=== PATIENT | female | born 1945 | race Caucasian/White ===

== ENCOUNTER 2019-12-28 10:05 | Outpatient (CLI) | payer MEDICARE, BC, SELFPAY ==
--- NOTE | ~2019-12-28 | DEXA_ITS ---
Bone Density Report Name: Lennie Shaw Age: 74 Sex: Female Ethnicity: White Date of : 1945 Indication: postmenopausal; height loss; prior fracture; hysterectomy; Referring Provider: JAMES DURON Study: Bone densitometry was performed. Exam Date: December 28, 2019 Accession number: [id number] Bone Density: Region BMD T-score Z-score Classification AP Spine (L1-L4) 1.033 -0.1 2.3 Normal Femoral Neck (Left) 0.678 -1.5 0.6 Osteopenia Total Hip (Left) 0.887 -0.5 1.4 Normal Total Hip Bilateral Avg 0.939 0.0 1.8 Normal Femoral Neck (Right) 0.752 -0.9 1.2 Normal Total Hip (Right) 0.989 0.4 2.2 Normal World Health Organization criteria for BMD impression classify patients as: Normal (T-score at or above -1.0), Osteopenia (T-score between -1.0 and -2.5), or Osteoporosis (T-score at or below -2.5). 10-year Fracture Risk(1): Major Osteoporotic Fracture 15% Hip Fracture 2.6% Reported Risk Factors: [place] (), Neck BMD=0.678, BMI=42.5, previous fracture (1) FRAX(R) Version 3.08. Fracture probability calculated for an untreated patient. Fracture probability may be lower if the patient has received treatment. Previous Exams: Region Exam Age BMD T-score BMD Change BMD Change Date g/cm2 vs Baseline vs Previous AP Spine(L1-L4) 12/28/2019 74 1.033 -0.1 0.024(2.4%)# -0.027(-2.5%)* 03/10/2017 71 1.060 0.1 0.051(5.0%)# 0.027(2.6%)# 08/04/2013 68 1.033 -0.1 0.024(2.4%)# 0.024(2.4%)# 03/23/2010 64 1.009 -0.3 Total Hip(Left) 12/28/2019 74 0.887 -0.5 -0.019(-2.1%)# -0.007(-0.8%) 03/10/2017 71 0.894 -0.4 -0.012(-1.4%)# -0.009(-1.0%)# 08/04/2013 68 0.903 -0.3 -0.003(-0.4%)# -0.003(-0.4%)# 03/23/2010 64 0.906 -0.3 Total Hip(Right) 12/28/2019 74 0.989 0.4 0.074(8.1%)# 0.011(1.1%) 03/10/2017 71 0.978 0.3 0.063(6.9%)# -0.069(-6.6%)# 08/04/2013 68 1.047 0.9 0.131(14.4%)# 0.131(14.4%)# 03/23/2010 64 0.915 -0.2 *Denotes significance at 95% confidence level, LSC for AP Spine = 0.022 g/cm2, LSC for Total Hip = 0.027 g/cm2 Clinical Information Provided by Patient: Has had a low trauma fracture Has used the following medications: Vitamin D Has the following medical conditions: Hysterectomy Patient maximum height was 59.5 Menopause Age: 44 Drinks caffeinated beverages Onset of menses at age 12 Number of children 2 Impression: The patient has low say
== END 2019-12-28 10:06 | disposition home or self-care (01) ==
LOC: ANHIMG 10:12
PROVIDERS: PCP Emergency Medicine; Visit Provider Emergency Medicine
DX: Z78.0 Asymptomatic menopausal state (principal); M85.852 Other specified disorders of bone density and structure, left thigh
CPT/HCPCS: 77080

== ENCOUNTER → 2020-07-14 11:14 | Outpatient (CLI) | payer MEDICARE, BC, SELFPAY ==
--- NOTE | ~2020-07-14 | MM_ITS ---
EXAMINATION: MM screening [facility] BI w brianna HISTORY: Screening TECHNIQUE: Craniocaudal and mediolateral oblique 3-D tomosynthesis images were obtained and synthetic 2-D images were generated. CAD analysis was submitted and interpreted. COMPARISON: Comparison to multiple prior studies sequentially, with oldest reviewed study dated 05/21. BREAST PARENCHYMAL COMPOSITION: There are scattered areas of fibroglandular density. FINDINGS: There is no evidence of suspicious mass, calcification, or architectural distortion to sugg est malignancy in either breast. There has been no suspicious interval change. IMPRESSION: 1. No mammographic evidence of malignancy. 2. Recommend routine screening mammography in one year. BI-RADS Category 1: Negative Reviewed, dictated and finalized at location A.
== END ==
PROVIDERS: PCP Emergency Medicine; Visit Provider Emergency Medicine
DX: Z12.31 Encounter for screening mammogram for malignant neoplasm of breast (principal)
CPT/HCPCS: 77063; 77067

== ENCOUNTER → 2021-08-06 17:47 | Outpatient (CLI) | payer MEDICARE, BC, SELFPAY ==
--- NOTE | ~2021-08-06 | MM_ITS ---
EXAMINATION: MM screening [facility] BI w brianna HISTORY: Screening mammogram TECHNIQUE: Craniocaudal and mediolateral oblique 3-D tomosynthesis images were obtained and synthetic 2-D images were generated. CAD analysis was submitted and interpreted. COMPARISON: 07/14/2020, 04/17/2019, 02/13/2018 BREAST PARENCHYMAL COMPOSITION: The breasts are almost entirely fatty. FINDINGS: There is no evidence of suspicious mass, calcification, or architectural distortion to sugg est malignancy in either breast. There has been no suspicious interval change. IMPRESSION: 1. No mammographic evidence of malignancy. 2. Recommend routine screening mammography in one year. BI-RADS Category 1: Negative Reviewed, dictated and finalized at location A.
== END ==
PROVIDERS: PCP Emergency Medicine; Visit Provider Emergency Medicine
DX: Z12.31 Encounter for screening mammogram for malignant neoplasm of breast (principal)
CPT/HCPCS: 77063; 77067

== ENCOUNTER 2021-10-05 08:34 | Outpatient (CLI) | payer MEDICARE, BC, SELFPAY ==
--- NOTE | ~2021-10-05 | CT_ITS ---
EXAMINATION: CT abdomen pelvis w con DATE: 10/05/2021 09:11 INDICATION: Unspecified abdominal pain. TECHNIQUE: Computed tomography (CT) of the abdomen and pelvis was performed with 100 mL Omnipaque 350 intravenous contrast. Automated exposure control and iterative reconstruction technique were employe d. The dose-length product was 1328.58 mGy-cm. COMPARISON: None. FINDINGS: The visualized portions of the lung bases demonstrate peripheral septal thickening, consist ent with chronic interstitial lung disease. There is a 5 mm nodule in right lower lobe, likely benign . No pleural effusion. The heart size is normal. There are coronary artery calcifications. No pericar dial effusion. There is a small sliding hiatal hernia. The liver and spleen are normal. There are paul nges of cholecystectomy. The pancreas, adrenal glands, and kidneys are normal. There are scattered di verticula in the colon. There is an 8.1 x 7.1 x 3.2 cm perisigmoid abscess. There are no pathological ly enlarged lymph nodes. There is no free intraperitoneal fluid. There is severe thoracic spondylosis and moderate lumbar spondylosis. IMPRESSION: 1. 8.1 x 7.1 x 3.2 cm perisigmoid abscess, likely from diverticulitis. Percutaneous drainage is recom mended. Reviewed, dictated and finalized at location A. LESNAKE FARMER IMPRESSION: 1. 8.1 x 7.1 x 3.2 cm perisigmoid abscess, likely from diverticulitis. Percutan eous drainage is recommended.
== END 2021-10-05 08:35 | disposition home or self-care (01) ==
LOC: ANHIMG 08:40
PROVIDERS: PCP Emergency Medicine; Visit Provider Emergency Medicine
DX: R10.9 Unspecified abdominal pain (principal)
CPT/HCPCS: 74177; Q9967

== ENCOUNTER 2021-10-25 10:01 | Outpatient (CLI) | payer MEDICARE, BC, SELFPAY ==
[2021-10-18 10:59] VITALS: BMI 45.2
--- NOTE | 2021-10-18 11:16 | PC.NURSE ---
Report to the Outpatient Waiting Room, entrance under the green pavilion located off [facility], at time ___0900__ on date __10/25/21 . OR Time: ___1099___. - You and your visitor will be asked a series of questions to screen for COVID 19 for your protection. - A mask is required within the hospital. - Only one visitor is allowed at this time. Patient visitors will be guided where to wait when not with patient. Preoperative COVID Testing Requirements: No COVID Test needed if: (proof is required; if not received patient will have Rapid Test prior to entry) - Patient has received COVID Vaccine at least 14 days prior to procedure date or - Patient has positive COVID test result within last 90 days of surgery date. COVID Test needed if above criteria is not met If not COVID vaccinated a COVID test must be conducted within 72 hours of surgery and patient is asked to isolate self from time of testing until procedure. You will go to the [facility] Testing Site for your COVID testing. The [facility] site is located at the corner of [address] [facility]. You will only be called if COVID results are positive and your surgeon may reschedule your elective surgery date. Patients may have clear liquids (water, carbonated beverages, clear teas, apple juice) until 3 hours prior to surgery with a maximum of 20 ounces. - No food from midnight until time of surgery - Infants may have breast milk until 4 hours before surgery, infant formula 6 hours prior to surgery. - Children will be allowed to drink immediately following surgery. If applicable, please bring a bottle or sippy cup to assist with drinking. Juice, water, soda, and popsicles are readily available. For infants on formula, please bring formula the day of surgery. Pacifiers are allowed. Take the following medications with a SIP of water the morning of surgery: NONE Medications to discontinue per physician Date to take last dose Please no make-up, nail luxembourgish, hairspray, perfume, deodorant, or body powder the day of surgery. No jewelry (including any body piercings) or valuables the day of surgery, leave them at home. Please take a shower or bath the night before, or the morning of, surgery with an antibacterial soap. Wear comfortable, loose fitting clothing. Children are encouraged to wear pajamas. - Jewelry must be removed prior to entering the operating room. Rings and piercings that are not removed may be cut off. - The hospital will not accept responsibility for valuables. - Please leave all valuables, including medications, at home the day of surgery. If you are going home after surgery, a licensed trencher driver must drive you home. - NO public transportation without another adult. - We recommend that an adult stay with you for 24 hours following discharge. - We also recommend that you do not drive, make important decision, drink alcoholic beverages, or take any drugs that were not prescribed by your health care provider for at least 24 hours after your discharge time. For Pediatric surgeries, we recommend two adults accompany the child home (only one inside the building at this time). Follow any additional instructions given to you from your surgeon. Telephone instructions given to PT and asked if any additional questions and then verbalized understanding. Patient advised to call surgeon office or pre surgery nurse liaison [phone] if any additional questions.
--- NOTE | ~2021-10-25 | CT_ITS ---
EXAMINATION: CT pelvis wo con DATE: 10/25/2021 11:56 INDICATION: Perisigmoid abscess. TECHNIQUE: Computed tomography (CT) of the pelvis was performed without intravenous contrast. Automat ed exposure control and iterative reconstruction technique were employed. The dose-length product was 100.07 mGy-cm. COMPARISON: CT abdomen and pelvis 10/05/2021 FINDINGS: There are no dilated loops of bowel. There are scattered diverticula in the colon. There is a 4.0 x 3.1 cm perisigmoid mass, consistent with abscess. The drainable fluid component of the absce ss likely less than 2 cm. There are no pathologically enlarged lymph nodes. There is no free intraper itoneal fluid. There is moderate lumbar spondylosis. IMPRESSION: 1. Perisigmoid abscess with interval improvement. The drainable fluid component of the abscess is lik amor less than 2 cm. I discussed this result with Dr. Cross. The abscess drainage procedure was cancel ed. Reviewed, dictated and finalized at location A. COILER MACHINE OPERATOR IMPRESSION: 1. Perisigmoid abscess with interval improvement. The drainable fluid component of the abscess is likely less than 2 cm. I discussed this result with Dr. Matt sepulveda. The abscess drainage procedure was canceled.
[2021-10-25 09:23] VITALS: BP 121/77; PULSE 95; RESP 18; TEMP 36.2; O2SAT 95
[2021-10-25 09:43] LABS: Mean Platelet Volume 8.8 fl (7.4-10.4); Platelet Count Result 297 k/mm3 (150-375)
[2021-10-25 09:54] LABS: Prothrombin Time 13.4 Seconds (11.1-14.7)
[2021-10-25 11:05] VITALS: BP 175/95; PULSE 98; RESP 16
== END 2021-10-25 11:30 | disposition home or self-care (01) ==
PROVIDERS: Radiology Diagnostic Radiology; PCP Emergency Medicine; Visit Provider Surgery
PROC: (CPT 75989; principal; 2021-10-25 11:00)
DX: R19.00 Intra-abdominal and pelvic swelling, mass and lump, unspecified site (principal)
CPT/HCPCS: 36415; 72192; 85049; 85610; J0690

== ENCOUNTER 2021-11-14 13:09 | Outpatient (CLI) | payer MEDICARE, BC, SELFPAY ==
--- NOTE | ~2021-11-14 | US_ITS ---
EXAMINATION: US venous doppler [facility] EXAM DATE: 11/14/2021 14:02 INDICATION: M79.604 - Pain in right leg . TECHNIQUE: Multiple grayscale, color flow and Doppler images of the lower extremity deep venous syste ms bilaterally were obtained and reviewed. Comparison is made to prior examination from 08/09/2016. FINDINGS: Right side: The right common femoral, femoral and profunda veins demonstrate normal color flow, respi ratory variation, augmentation and compressibility. Compressibility, color flow confirmed within the right popliteal, posterior tibial, peroneal, and greater saphenous veins. Left side: The left common femoral, femoral and profunda veins demonstrate normal color flow, respira tory variation, augmentation and compressibility. Compressibility, color flow confirmed within the l eft popliteal, posterior tibial, peroneal, and greater saphenous veins. IMPRESSION: 1. No lower extremity deep venous thrombosis bilaterally. Reviewed, dictated and finalized at location A. R INSPECTOR
== END 2021-11-14 13:10 | disposition home or self-care (01) ==
LOC: ANHIMG 13:14
PROVIDERS: PCP Emergency Medicine; Visit Provider Emergency Medicine
DX: M79.604 Pain in right leg (principal); M79.605 Pain in left leg
CPT/HCPCS: 93970

== ENCOUNTER 2022-01-21 12:24 | Outpatient (CLI) | payer MEDICARE, BC, SELFPAY ==
--- NOTE | 2022-01-21 12:46 | ECHO_ITS ---
Patient Info Name: Lennie Shaw Age: 76 years : 1945 Gender: Female Ht: 58 in Wt: 209 lbs BSA: 2.03 m2 HR: 71 bpm BP: 144 / 97 mmHg Heart Rhythm: Sinus Rhythm Technical Quality: Good Exam Date: 01/21/2022 1:04 PM Exam Location: [facility] Patient Status: Outpatient Admit Date: 01/21/2022 Staff Ordering Physician: Real Doherty DO Drilling Fluids Specialist: Kathie Wallace RDCS Attending Provider: Real Doherty DO Referring Physician: Chas UNDERWOOD; Exam Type: CA echo doppler color flow Study Info Indications - Unspecified atrial fibrillation Complete two-dimensional, color flow and Doppler transthoracic echocardiogram is performed. Summary 1. Complete two-dimensional, color flow and Doppler transthoracic echocardiogram is performed. 2. Left ventricular chamber dimension is normal. 3. Left ventricular systolic function is normal, estimated at 60-65%. 4. The left ventricular diastolic function is grade I diastolic dysfunction. 5. E/e' 14 is mildly elevated. 6. Global longitudinal strain is mildly abnormal at -16.3%. 7. No pulmonary hypertension, estimated pulmonary arterial systolic pressure is 18 mmHg. Left Ventricle E/e' 14 is mildly elevated. Global longitudinal strain is mildly abnormal at -16.3%. Left ventricular chamber dimension is normal. Left ventricular systolic function is normal, estimated at 60-65%. The left ventricular diastolic function is grade I diastolic dysfunction. Right Ventricle Right ventricular chamber dimension is normal. Right ventricular systolic function is normal. Left Atria Left atrial chamber dimension is normal. Right Atria Right atrial chamber dimension is normal. Aortic Valve The aortic valve is trileaflet. There is no aortic valve stenosis. There is no aortic valve regurgitation. Pulmonic Valve There is no pulmonic regurgitation. Mitral Valve There is no mitral valve stenosis. There is no mitral valve regurgitation. Tricuspid Valve There is no tricuspid valve regurgitation. No pulmonary hypertension, estimated pulmonary arterial systolic pressure is 18 mmHg. Pericardium/Pleural There is no pericardial effusion. Inferior Vena Cava Normal inferior vena cava with >50% collapse upon inspiration consistent with normal right atrial pressure, 5 mmHg. Aorta The aortic root size at the sinus of Valsalva is normal. Left Ventricular Outflow Tract Name Value Normal LVOT 2D LVOT Diameter 2.0 cm LVOT Doppler LVOT Peak Gradient 4 mmHg LVOT Mean Gradient 2 mmHg LVOT VTI 22 cm LVOT VTI/AV VTI Ratio 0.8 LVOT Stroke Volume 69 ml LVOT CO 13.5 l/min LVOT CI 6.7 l/min/m2 Pulmonic Valve Name Value Normal PV Doppler
== END 2022-01-21 12:25 | disposition home or self-care (01) ==
LOC: ANHCARD 12:29
PROVIDERS: PCP Emergency Medicine; Visit Provider Internal Medicine Cardiovascular Disease
DX: I48.91 Unspecified atrial fibrillation (principal)
CPT/HCPCS: 93306

== ENCOUNTER 2022-09-19 14:14 | Outpatient (CLI) | payer MEDICARE, BC, SELFPAY ==
--- NOTE | ~2022-09-19 | DEXA_ITS ---
Bone Density Report Name: REBECA NICOLAS Age: 77 Sex: Female Ethnicity: White Date of : 1945 Indication: postmenopausal; screening for osteoporosis; height loss; inflammatory bowel disease; hysterectomy; Referring Provider: JAMES DURON Study: Bone densitometry was performed. Exam Date: September 19, 2022 Accession number: [id number] Bone Density: Region BMD T-score Z-score Classification AP Spine(L1-L4) 0.965 -0.7 1.8 Normal Femoral Neck (Left) 0.654 -1.8 0.5 Osteopenia Total Hip (Left) 0.810 -1.1 0.9 Osteopenia Femoral Neck (Right) 0.756 -0.8 1.4 Normal Total Hip (Right) 0.959 0.1 2.1 Normal Total Hip Mean 0.884 -0.5 1.5 Normal World Health Organization criteria for BMD impression classify patients as: Normal (T-score at or above -1.0), Osteopenia (T-score between -1.0 and -2.5), or Osteoporosis (T-score at or below -2.5). 10-year Fracture Risk(1): Major Osteoporotic Fracture 11% Hip Fracture 2.6% Reported Risk Factors: [place] (), Neck BMD=0.654, BMI=44.9 (1) FRAX(R) Version 3.08. Fracture probability calculated for an untreated patient. Fracture probability may be lower if the patient has received treatment. Clinical Information Provided by Patient: Has used the following medications: Vitamin D Has the following medical conditions: Inflammatory bowel diseases, Hysterectomy Patient maximum height was 59 No regular weight bearing exercise Drinks caffeinated beverages Onset of menses at age 11 Number of children 2 Impression: The patient has low bone mass, based on the Left Femoral Neck T-score. The patient has an estimated ten-year risk of hip fracture of 2.6% and an estimated ten-year risk of major fracture of 11%, based on the WHO FRAX algorithm. Discussion: BONE DENSITY IS LOW AT ONE OR MORE SKELETAL SITES. This patient's lowest T-score is low at one or more skeletal sites. It meets the World Health Organization's (WHO) criteria for ?low bone mass? (T-score between -1.0 and -2.5). The patient's 10-year risk of fracture as calculated by FRAX is less than the threshold where pharmacological therapy is recommended by the National Osteoporosis Foundation (NOF). However, all treatment decisions require clinical judgment and consideration of individual patient factors, including patient preferences, comorbidities, previous drug use, risk factors not captured in the FRAX model (e.g., frailty, falls, vitamin D deficiency, increased bone turnover, interval significant decline in bone density) and possible under or overestimation of fracture risk by FRAX. The patient should follow a healthful lifestyle (good nutrition with adequate calcium and vitamin D, and appropriate weight-bearing exercise). Follow-Up: Consider repeating this study in 2 to 3 years to re
== END 2022-09-19 14:15 | disposition home or self-care (01) ==
LOC: ANHIMG 14:15
PROVIDERS: PCP Emergency Medicine; Visit Provider Emergency Medicine
DX: Z78.0 Asymptomatic menopausal state (principal); M85.852 Other specified disorders of bone density and structure, left thigh
CPT/HCPCS: 77080

== ENCOUNTER 2022-11-22 00:32 | Day surgery (SDC) | payer MEDICARE, BC, SELFPAY ==
[2022-11-11 15:05] VITALS: BMI 46.0
[2022-11-22 09:25] VITALS: BP 109/68; PULSE 77; RESP 18; TEMP 36.1; O2SAT 96
--- NOTE | 2022-11-22 09:27 | PM.HPGS ---
History of Present Illness History of Present Illness Consent: Risks, benefits, and alternatives have been discussed and questions answered. Patient agrees to proceed with procedure. Chief complaint: Hx of colon polyps Narrative: Lennie Shaw is a 77 year old female referred for colon cancer screening. She had 1 small polyp removed about 5 years ago Review of Systems Review of Systems: All systems reviewed & are unremarkable except as noted in HPI and below PMFSH Past Medical History Medical History Anxiety DJD (degenerative joint disease) HTN (hypertension) Urinary incontinence Surgical History Surgical History H/O adenoidectomy H/O section 1974 H/O knee surgery H/O rotator cuff surgery H/O: hysterectomy History of tonsillectomy Family History Family History Father Family history of lung cancer, Onset Age: 69 Patient's father is Mother Patient's mother is Non-Hodgkin lymphoma Grandparent Family history of malignant neoplasm of male breast Social History Social History Social History: Patient drinks 2 cups of coffee daily, 1 diet coke, and iced tea. Patient walks at [employer] three times per week. Smoking status: Never smoker Second hand tobacco smoke exposure: No Alcohol intake: current Alcohol use details: STATES VERY RARELY 1-2 TIMES YEAR Substance use: never Substance use type: does not use Living arrangements: alone Additional living arrangements comments: Patient is Occupation/Education: retired Gender identity (if verbalized by the patient): Female Sexual Orientation (if Verbalized by the Patient): Straight or Heterosexual Spiritual care concerns: No Meds Home Medications and Allergies Home Medications Medication Instructions Recorded Confirmed Type venlafaxine 75 mg tablet 75 mg PO BID 10/09/21 11/11/22 History ergocalciferol (vitamin D2) 1,250 1,250 mcg PO WEEKLY #12 caps 02/22/22 11/11/22 Rx mcg (50,000 unit) capsule (Vitamin D2) fluticasone propionate 50 1 spray intranasal DAILY #16 grams 04/29/22 11/11/22 Rx mcg/actuation nasal spray,suspension metoprolol tartrate 25 mg tablet 25 mg PO BID #60 tabs 06/21/22 11/11/22 Rx sertraline 100 mg tablet (Zoloft) 150 mg PO DAILY 08/28/22 11/11/22 History apixaban 5 mg tablet (Eliquis) 5 mg PO BID 11/11/22 11/22/22 History benazepril 10 1 tablet PO BID 11/11/22 11/11/22 History mg-hydrochlorothiazide 12.5 mg tablet cetirizine 10 mg tablet (Zyrtec) 10 mg PO DAILY PRN Allergy Symptoms 11/11/22 11/11/22 History fexofenadine 180 mg tablet 180 mg PO PRN PRN Allergy Symptoms 11/11/22 11/11/22 History (Neelima Allergy) lifitegrast 5 % eye drops in a 1 drp EACH EYE DAILY 11/11/22 11/11/22 History dropperette (Xiidra) nystatin 100,000 unit/gram topical 1 applic topical PRN PRN Rash 11/11/22 11/11/22 History powder (Nystop) trazodone 50 mg tablet 50 - 75 mg PO HS PRN Insomnia 11/11/22 11/11/22 History triamcinolone acetonide 0.1 % 1 applic topical BID PRN Wound Care 11/11/22 11/11/22 History topical cream Allergies Allergy/AdvReac Type Severity Reaction Status Date / Time red dye Allergy Severe Anaphylaxis Verified 11/22/22 09:23 ragweed pollen AdvReac Mild Congested Verified 11/22/22 09:23 Vital Signs Vital Signs - 24 hr 11/22/22 09:25 Temperature 36.1 C L Pulse Rate 77 Respiratory Rate 18 Blood Pressure 109/68 Pulse Oximetry 96 Oxygen Delivery Room Air Exam Const: General: alert Orientation/consciousness: patient oriented x3 Resp: Auscultation: clear to auscultation bilaterally Cardio: Rhythm: regular rhythm GI: GI Palp: Yes Soft to palpation and No Tenderness to palpation pres
[2022-11-22] MEDS: LACTATED RINGERS 1,000 ML 150 ML IV CONT (09:35)
--- NOTE | 2022-11-22 09:55 | WPDANESEPPF ---
Anes - Initial Pre Proc Eval Procedure: Operation Date: 11/22/22 10:30 Proposed Procedures p Screening Colonoscopy - Wilian Herman MD Date/Time: 11/22/22 09:55 Surgeon: Wilian Herman MD Pre Op Diagnosis: Hx of colon polyps Patient Data Age: 77 Gender: F Height: 1.45 m Weight: 94.1 kg Last Vital Signs Temp 97 F L 11/22/22 09:25 Pulse 77 11/22/22 09:25 Resp 18 11/22/22 09:25 BP 109/68 11/22/22 09:25 Pulse Ox 96 11/22/22 09:25 O2 Del Method Room Air 11/22/22 09:25 Allergies Allergy/AdvReac Type Severity Reaction Status Date / Time red dye Allergy Severe Anaphylaxis Verified 11/22/22 09:23 ragweed pollen AdvReac Mild Congested Verified 11/22/22 09:23 Home Medications Medication Instructions Recorded Confirmed Type venlafaxine 75 mg tablet 75 mg PO BID 10/09/21 11/11/22 History ergocalciferol (vitamin D2) 1,250 1,250 mcg PO WEEKLY #12 caps 02/22/22 11/11/22 Rx mcg (50,000 unit) capsule (Vitamin D2) fluticasone propionate 50 1 spray intranasal DAILY #16 grams 04/29/22 11/11/22 Rx mcg/actuation nasal spray,suspension metoprolol tartrate 25 mg tablet 25 mg PO BID #60 tabs 06/21/22 11/11/22 Rx sertraline 100 mg tablet (Zoloft) 150 mg PO DAILY 08/28/22 11/11/22 History apixaban 5 mg tablet (Eliquis) 5 mg PO BID 11/11/22 11/22/22 History benazepril 10 1 tablet PO BID 11/11/22 11/11/22 History mg-hydrochlorothiazide 12.5 mg tablet cetirizine 10 mg tablet (Zyrtec) 10 mg PO DAILY PRN Allergy Symptoms 11/11/22 11/11/22 History fexofenadine 180 mg tablet 180 mg PO PRN PRN Allergy Symptoms 11/11/22 11/11/22 History (Neelima Allergy) lifitegrast 5 % eye drops in a 1 drp EACH EYE DAILY 11/11/22 11/11/22 History dropperette (Xiidra) nystatin 100,000 unit/gram topical 1 applic topical PRN PRN Rash 11/11/22 11/11/22 History powder (Nystop) trazodone 50 mg tablet 50 - 75 mg PO HS PRN Insomnia 11/11/22 11/11/22 History triamcinolone acetonide 0.1 % 1 applic topical BID PRN Wound Care 11/11/22 11/11/22 History topical cream Patient hx anesthesia problems: none Family hx anesthesia problems: none Results Review: All pre-operative results and documents have been reviewed as part of the pre-operative evaluation. [facility] Past Medical History Medical History Anxiety DJD (degenerative joint disease) HTN (hypertension) Urinary incontinence Surgical History Surgical History H/O adenoidectomy H/O section 1969, 1974 H/O knee surgery H/O rotator cuff surgery H/O: hysterectomy History of tonsillectomy Family History Family History Father Family history of lung cancer, Onset Age: 69 Patient's father is Mother Patient's mother is Non-Hodgkin lymphoma Grandparent Family history of malignant neoplasm of male breast Social History Social History Social History: Patient drinks 2 cups of coffee daily, 1 diet coke, and iced tea. Patient walks at [employer] three times per week. Smoking status: Never smoker Second hand tobacco smoke exposure: No Alcohol intake: current Alcohol use details: STATES VERY RARELY 1-2 TIMES YEAR Substance use: never Substance use type: does not use Living arrangements: alone Additional living arrangements comments: Patient is Occupation/Education: retired Gender identity (if verbalized by the patient): Female Sexual Orientation (if Verbalized by the Patient): Straight or Heterosexual Spiritual care concerns: No Anes - Eval Final PreProcedure Day of Procedure 11/22/22 09:55 Patient weight: morbidly obese Heart: regular rate and rhythm Lungs: clear to auscultation Airway: Mallampati scale class III Neurological: alert
[2022-11-22 10:23] VITALS: BP 101/55; PULSE 66; RESP 24; O2SAT 93
[2022-11-22 10:33] VITALS: BP 96/54; PULSE 67; RESP 21; O2SAT 95
[2022-11-22 10:43] VITALS: BP 101/62; PULSE 67; RESP 21; O2SAT 98
== END 2022-11-22 10:56 | disposition home or self-care (01) ==
PROVIDERS: PCP Emergency Medicine; Visit Provider Internal Medicine Gastroenterology
PROC: 0DJD8ZZ Inspection of Lower Intestinal Tract, Via Natural or Artificial Opening Endoscopic (ICD-10-PCS; CPT 45378; principal; 2022-11-22 10:30)
DX: Z12.11 Encounter for screening for malignant neoplasm of colon (principal); K57.30 Diverticulosis of large intestine without perforation or abscess without bleeding; Z86.010 Personal history of colon polyps; I10 Essential (primary) hypertension; F41.9 Anxiety disorder, unspecified; E66.01 Morbid (severe) obesity due to excess calories; Z68.41 Body mass index [BMI] 40.0-44.9, adult; Z79.01 Long term (current) use of anticoagulants
CPT/HCPCS: G0105; J2704; J7120

== ENCOUNTER 2023-01-01 14:36 | Outpatient (CLI) | payer MEDICARE, BC, SELFPAY ==
--- NOTE | ~2023-01-01 | MM_ITS ---
EXAMINATION: MM screening beena BI w brianna HISTORY: Screening mammogram TECHNIQUE: Craniocaudal and mediolateral oblique 3-D tomosynthesis images were obtained and synthetic 2-D images were generated. CAD analysis was submitted and interpreted. COMPARISON: 08/2021, 07/14/2020, 04/17/2019 bilateral screening mammogram examinations BREAST PARENCHYMAL COMPOSITION: There are scattered areas of fibroglandular density. FINDINGS: There is no evidence of suspicious mass, calcification, or architectural distortion to sugg est malignancy in either breast. There has been no suspicious interval change. IMPRESSION: 1. No mammographic evidence of malignancy. 2. Recommend routine screening mammography in one year. BI-RADS Category 1: Negative Reviewed, dictated and finalized at location A. 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
== END 2023-01-01 14:37 | disposition home or self-care (01) ==
LOC: ANHIMG 14:39
PROVIDERS: PCP Emergency Medicine; Visit Provider Emergency Medicine
DX: Z12.31 Encounter for screening mammogram for malignant neoplasm of breast (principal)
CPT/HCPCS: 77063; 77067

== ENCOUNTER 2023-02-21 13:52 | Emergency (ER) | payer MEDICARE, BC, SELFPAY ==
--- NOTE | ~2023-02-21 | XR_ITS ---
XR foot LT min 3V 02/21/2023 14:14 Indication: Status post fall. Bruising. Procedure: 4 views left foot Comparison: No prior studies for comparison. Findings: Osteopenia. There are fractures of the second-fifth metatarsal necks with lateral angulatio n of the second, third and fourth metatarsal fractures. There is moderate dorsal soft tissue swelling at the level of the fractures. There is mild polyarticular osteoarthritis. Impression: 1: Fractures of the left second-fifth metatarsal necks. Reviewed, dictated and finalized at location A. Impression: 1: Fractures of the left second-fifth metatarsal necks.
[2023-02-21 14:28] VITALS: BP 115/64; PULSE 64; RESP 18; TEMP 36.8; O2SAT 97
--- NOTE | 2023-02-21 16:12 | ED.GENADULT ---
HPI - General Adult General Chief complaint: Extremity Injury, Lower <Shun Grimm PA-C - Last Filed: 02/21/23 18:34> Stated complaint: fall <Shun Grimm PA-C - Last Filed: 02/21/23 18:34> Time Seen by Provider: 02/21/23 14:41 <Shun Grimm PA-C - Last Filed: 02/21/23 18:34> Source: patient <Shun Grimm PA-C - Last Filed: 02/21/23 18:34> Mode of arrival: ambulatory <ROSSI Fuentes Last Filed: 02/21/23 18:34> Limitations: no limitations <Shun Grimm PA-C - Last Filed: 02/21/23 18:34> History of Present Illness HPI narrative: This is a 77-year-old female presents the ED with chief complaint of left foot pain onset today just prior to arrival. She had an injury where she fell out of her car while trying to get in and the left foot hit the garage floor. Reports immediate pain and denies audible pop. Reports bruising and swelling. Denies any further site of pain or injury. <Shun Grimm PA-C - Last Filed: 02/21/23 18:34> Related Data Home medications: Home Medications Medication Instructions Recorded Confirmed venlafaxine 75 mg tablet 75 mg PO BID 10/09/21 11/11/22 sertraline 100 mg tablet (Zoloft) 150 mg PO DAILY 08/28/22 11/11/22 benazepril 10 1 tablet PO BID 11/11/22 11/11/22 mg-hydrochlorothiazide 12.5 mg tablet cetirizine 10 mg tablet (Zyrtec) 10 mg PO DAILY PRN Allergy Symptoms 11/11/22 11/11/22 fexofenadine 180 mg tablet 180 mg PO PRN PRN Allergy Symptoms 11/11/22 11/11/22 (Neelima Allergy) lifitegrast 5 % eye drops in a 1 drp EACH EYE DAILY 11/11/22 11/11/22 dropperette (Xiidra) nystatin 100,000 unit/gram topical 1 applic topical PRN PRN Rash 11/11/22 11/11/22 powder (Nystop) trazodone 50 mg tablet 50 - 75 mg PO HS PRN Insomnia 11/11/22 11/11/22 triamcinolone acetonide 0.1 % 1 applic topical BID PRN Wound Care 11/11/22 11/11/22 topical cream <Shun Grimm PA-C - Last Filed: 02/21/23 18:34> Allergies/adverse reactions: Allergies Allergy/AdvReac Type Severity Reaction Status Date / Time red dye Allergy Severe Anaphylaxis Verified 11/22/22 09:23 ragweed pollen AdvReac Mild Congested Verified 11/22/22 09:23 <Shun Grimm PA-C - Last Filed: 02/21/23 18:34> Review of Systems Review of Systems: CONSTITUTIONAL: Denies fever, chills, or sweats. SKIN: See HPI MUSCULOSKELETAL: See HPI NEUROLOGIC: Denies headache, numbness, dizziness, or weakness. PSYCHIATRIC: Denies anxiety or depression. <Shun Grimm PA-C - Last Filed: 02/21/23 18:34> [facility], [facility] Past Medical History Medical History: Medical History Anxiety DJD (degenerative joint disease) HTN (hypertension) Urinary incontinence <Shun Grimm PA-C - Last Filed: 02/21/23 18:34> Surgical History Surgical History: Surgical History H/O adenoidectomy H/O section 1974 H/O knee surgery H/O rotator cuff surgery H/O: hysterectomy History of tonsillectomy <Shun Grimm PA-C - Last Filed: 02/21/23 18:34> Family History Family History: Family History Father Family history of lung cancer, Onset Age: 69 Patient's father is Mother Patient's mother is Non-Hodgkin lymphoma Grandparent Family history of malignant neoplasm of male breast <Shun Grimm PA-C - Last Filed: 02/21/23 18:34> Social History Social History: Social History Social History: Patient drinks 2 cups of coffee daily, 1 diet coke, and iced tea. Patient walks at [employer] three times per week. Smoking status: Never smoker Second hand tobacco smoke exposure: No Alcohol intake: current Alcohol use details: STATES VERY RARELY 1-2 TIMES YEAR Substance use: never Substance use type: do
== END 2023-02-21 16:43 | disposition home or self-care (01) ==
PROVIDERS: Emergency Provider Physician Assistant; PCP Emergency Medicine
DX: S92.902A Unspecified fracture of left foot, initial encounter for closed fracture (principal); I10 Essential (primary) hypertension; V48.4XXA Person boarding or alighting a car injured in noncollision transport accident, initial encounter
CPT/HCPCS: 73630; 99284

== ENCOUNTER 2024-07-07 13:21 | Outpatient (CLI) | payer MEDICARE, BC, SELFPAY ==
--- NOTE | ~2024-07-07 | MM_ITS ---
EXAMINATION: MM screening beena BI w brianna HISTORY: Screening TECHNIQUE: Craniocaudal and mediolateral oblique 3-D tomosynthesis images were obtained and synthetic 2-D images were generated. CAD analysis was submitted and interpreted. COMPARISON: Comparison to multiple prior studies sequentially, with oldest reviewed study dated 12/21. BREAST PARENCHYMAL COMPOSITION: Not dense: There are scattered areas of fibroglandular density. FINDINGS: There is no evidence of suspicious mass, calcification, or architectural distortion to sugg est malignancy in either breast. There has been no suspicious interval change. IMPRESSION: 1. No mammographic evidence of malignancy. 2. Recommend routine screening mammography in one year. BI-RADS Category 1: Negative Reviewed, dictated and finalized at location B.
== END 2024-07-07 13:22 | disposition home or self-care (01) ==
LOC: ANHIMG 13:23
PROVIDERS: PCP Emergency Medicine; Visit Provider Emergency Medicine
DX: Z12.31 Encounter for screening mammogram for malignant neoplasm of breast (principal)
CPT/HCPCS: 77063; 77067

== ENCOUNTER 2024-12-30 17:09 | Emergency (ER) | payer MEDICARE, BC, SELFPAY ==
[2024-12-30 17:24] VITALS: BP 133/65; PULSE 64; RESP 16; TEMP 36.7; O2SAT 98
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
[2024-12-30 17:48] LABS: EDUAAPPEAR Cloudy; EDUABILI Negative (Negative); EDUABLOOD 1+ (Negative); EDUACOLOR1 Tea Colored; EDUAGLUCOSE Negative (Negative); EDUAKETONE Negative (Negative); EDUALEUKO 1+ (Negative); EDUANITRATE Positive (Negative); EDUAPH 6.5; EDUAPROTEIN Trace (Negative); EDUAUROBILI 0.2
== END 2024-12-30 18:05 | disposition home or self-care (01) ==
PROVIDERS: Emergency Provider Nurse Practitioner; PCP Emergency Medicine
DX: N30.01 Acute cystitis with hematuria (principal); B96.89 Other specified bacterial agents as the cause of diseases classified elsewhere; E78.5 Hyperlipidemia, unspecified; I10 Essential (primary) hypertension; F41.9 Anxiety disorder, unspecified; F32.9 Major depressive disorder, single episode, unspecified; M17.11 Unilateral primary osteoarthritis, right knee; M16.11 Unilateral primary osteoarthritis, right hip; Z96.651 Presence of right artificial knee joint; Z86.718 Personal history of other venous thrombosis and embolism
CPT/HCPCS: 81003; 87077; 87086; 87186; 99213; G0463

== ENCOUNTER 2025-01-21 16:37 | Emergency (ER) | payer MEDICARE, BC, SELFPAY ==
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
[2025-01-21 17:01] VITALS: BP 132/76; PULSE 69; RESP 16; TEMP 35.9; O2SAT 98
[2025-01-21 17:06] LABS: EDUAAPPEAR Clear; EDUABILI Negative (Negative); EDUABLOOD 1+ (Negative); EDUACOLOR1 Yellow; EDUAGLUCOSE Negative (Negative); EDUAKETONE Negative (Negative); EDUALEUKO 1+ (Negative); EDUANITRATE Positive (Negative); EDUAPH 6.5; EDUAPROTEIN 1+ (Negative); EDUAUROBILI 0.2
[2025-01-21] MEDS: cefTRIAXone 1 GM, LIDOCAINE 1% LOCAL INJ 2.1 ML IM (17:15)
== END 2025-01-21 17:37 | disposition home or self-care (01) ==
PROVIDERS: Emergency Provider Nurse Practitioner Family; PCP Emergency Medicine
DX: N30.01 Acute cystitis with hematuria (principal); B96.5 Pseudomonas (aeruginosa) (mallei) (pseudomallei) as the cause of diseases classified elsewhere; I10 Essential (primary) hypertension; E78.5 Hyperlipidemia, unspecified; F41.9 Anxiety disorder, unspecified; F32.9 Major depressive disorder, single episode, unspecified; M17.11 Unilateral primary osteoarthritis, right knee; M16.11 Unilateral primary osteoarthritis, right hip; Z96.651 Presence of right artificial knee joint
CPT/HCPCS: 81003; 87086; 87186; 96372; 99213; G0463; J0696; J2003

== ENCOUNTER 2025-04-02 08:43 | Outpatient (CLI) | payer MEDICARE, BC, SELFPAY ==
--- NOTE | ~2025-04-02 | DEXA_ITS ---
Bone Density Report Name: REBECA NICOLAS Age: 79 Sex: Female Ethnicity: White Date of : 1945 Indication: osteopenia; height loss; hysterectomy; Referring Provider: JAMES DURON Study: Bone densitometry was performed. Exam Date: April 02, 2025 Accession number: [id number] Bone Density: Region BMD T-score Z-score Classification AP Spine(L1-L4) 1.029 -0.2 2.5 Normal Femoral Neck (Left) 0.569 -2.5 -0.2 Osteoporosis Total Hip (Left) 0.772 -1.4 0.7 Osteopenia Femoral Neck (Right) 0.630 -2.0 0.4 Osteopenia Total Hip (Right) 0.886 -0.5 1.6 Normal Total Hip Mean 0.829 -1.0 1.2 Normal World Health Organization criteria for BMD impression classify patients as: Normal (T-score at or above -1.0), Osteopenia (T-score between -1.0 and -2.5), or Osteoporosis (T-score at or below -2.5). 10-year Fracture Risk: FRAX not reported because: Some T-score for Spine Total or Hip Total or Femoral Neck at or below -2.5 Previous Exams: Region Exam Age BMD T-score BMD Change BMD Change Date g/cm2 vs Baseline vs Previous AP Spine (L1-L4) 04/02/2025 79 1.029 -0.2 -0.031 (-3.0%) 0.064 (6.6%)* 09/19/2022 77 0.965 -0.7 -0.095 (-9.0%) -0.068 (-6.6%) 12/28/2019 74 1.033 -0.1 -0.027 (-2.5%) -0.027 (-2.5%) 03/10/2017 71 1.060 0.1 Total Hip(Left) 04/02/2025 79 0.772 -1.4 -0.122 (-13.6% -0.037 (-4.6%) 09/19/2022 77 0.810 -1.1 -0.084 (-9.4%) -0.077 (-8.7%) 12/28/2019 74 0.887 -0.5 -0.007 (-0.8%) -0.007 (-0.8%) 03/10/2017 71 0.894 -0.4 Total Hip(Right) 04/02/2025 79 0.886 -0.5 -0.092 (-9.4%) -0.073 (-7.6%) 09/19/2022 77 0.959 0.1 -0.019 (-1.9%) -0.030 (-3.0%) 12/28/2019 74 0.989 0.4 0.011 (1.1%) 0.011 (1.1%) 03/10/2017 71 0.978 0.3 *Denotes significance at 95% confidence level, LSC for AP Spine = 0.022 g/cm2, LSC for Total Hip = 0.027 g/cm2 Clinical Information Provided by Patient: Has used the following medications: Vitamin D Has the following medical conditions: Hysterectomy Patient maximum height was 59 Menopause Age: 47 No regular weight bearing exercise Drinks caffeinated beverages Onset of menses at age 11 Number of children 2 Impression: The patient has osteoporosis, based on the Left Femoral Neck T-score. The BMD for the Total Hip(Left) decreased, changing by -4.6% since the last DXA exam. The BMD for the Total Hip(Right) decreased, changing by -7.6% since the last DXA exam. Discussion: INCREASED RISK OF FRACTURE. BONE DENSITY IS UNDESIRABLY LOW AT ONE OR MORE SKELETAL SITES, CONSISTENT WITH POSTMENOPAUSAL OSTEOPOROSIS. This patient's lowest T-score meets the World Health Organization's (WHO) criteria for osteoporosis at one or more sites (T-score -2.5 or below). In untreated patients, the risk of osteoporotic fracture increases approximately two-fold for each 1.0 SD decrease in T-score. Low bone density is not the only risk factor for fracture; also consider factors such as patient's age, frailty or poor health, risk of falling, risk of injury, previous osteoporotic fracture, family history of osteoporosis, cigarette smoking, low body weight, etc. Not everyone with low bone mineral density has osteoporosis; osteomalacia and other metabolic bone disorders should also be considered. Patients who have osteoporosis should be evaluated for specific diseases and conditions (secondary causes) that may cause or contribute to bone loss. The [place] Association [employer] Clinical Endocrinologists (AACE) and National Osteoporosis Foundation (NOF) recommend pharmacologic intervention for all postmenopausal women whose T-score is in this range. The patient should follow a healthful lifestyle (good nutrition with adequate calcium and vitamin D, and appropriate weight-bearing exercise). Follow-Up: Consider a repeat BMD and Vertebral Fracture Assessment (VFA) exam in 2 years or sooner if medically necessary, to reassess this patient's status. Reported by: MATTHEW on 04/02/2025 9:24:00 AM. Reviewed, dictated and finalized at location A.
--- OUTSIDE RECORDS SUMMARY | 2025-04-02 08:45 | XMS_ITS ---
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 Name Role Phone Juan Manuel Radford MD Primary Care Provider Unavail Margarita Thorne Unavailable [phone] REASON FOR VISIT follow-up Social History Sex Assigned At : Social History Observation Description Sex Assigned At Female Encounters Encounter Location Date Provider Diagnosis [facility] [place] [address] [facility] [address] [address] 03/29/2025 Margarita Willett Plan Of Treatment Next Appt Details Provider Name:Margarita apodaca, 04/29/2025 03:00:00 PM, [address] [facility] [address], [facility] [address], [place], [address], Progress Notes * VERN SHAWADOB:1945 ([age] yo F)Acc No.[id number]:03/29/2025 Patient: REBECA VALE Provider: Yolande Willett :1945 A ge:79 Y S ex:Female Date:03/29/2025 Address:[address] [facility] Pcp:Juan Manuel Radford MD Subjective: * Chief Complaints: * 1 . Follow-up. * Medical History: Objective: * Vitals: Assessment: Plan: * Treatment: * Billing Information: * Visit Code: * Procedure Codes: * Electronic signature of Oumar Willett on 04/02/2025 at 08:45 AM CDT Sign off status: Pending * Provider: Yolande Willett Date: 0 03/29/2025 Generated for Arlette farr/Afshan/Rocio on: 0 04/02/2025 08:45 AM CDT
--- OUTSIDE RECORDS SUMMARY | 2025-04-02 08:45 | XMS_ITS ---
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 (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 - Mood: Patient reports crying spells in the last two weeks and feeling depressed. - Thought Process: Some evidence of circumstantiality, as patient provides extensive details about various topics. - Cognition: Patient expresses uncertainty about her memory, stating I don't know when asked if her memory has been concerning. - Insight: Patient demonstrates some insight into her condition, recognizing the need for a counselor and acknowledging her anxiety and depression. Laboratory, Imaging, and Diagnostic Test Results - Ultrasound of kidneys and bladder: Negative - Urinalysis: Positive for UTI (recent) - Bladder check with catheter: No UTI detected initially, but follow-up confirmed UTI presence
--- OUTSIDE RECORDS SUMMARY | 2025-04-02 08:46 | XMS_ITS ---
Author Name Auto Generated, Auto Generated Organization [employer] [facility] ices Address [address] [place] [address] Phone [phone] Care Team Providers Care Medical Office Manager Name Role Phone Tanner Edwards Functional Status No Results Mental Status No Results Allergies and Intolerances No Known Allergies Medications Medication Directions Start Date End Date Zoloft 50 mg tablet 50mg TABLET Oral 1 T nicolle Daily FriAug 28 07:00:00 EDT 2015Aug 29 01:00:00 EDT 2015 ALPRAZolam 0.5 mg tablet 0.5mg Oral PRN Every 12 Hours anxiety FriAug 25 17:00:00 EDT 2015Aug 29 01:00:00 EDT 2015 Zoloft 50 mg tablet 50mg TABLET Oral 1 T nicolle Daily FriAug 25 09:00:00 EDT 2015Aug 27 14:36:00 EDT 2016 Nystop 100,000 unit/gram topical powder as directed POWDER (GRAM) Topical 2 Times Daily apply powder to groin BID for redness and moisture FriAug 24 22:00:00 EDT 2015Aug 29 01:00:00 EDT 2016 levoFLOXacin 500 mg tablet 500mg TABLET Oral 1 Time Daily for 2 Days Cellulitis FriAug 21 09:00:00 EDT 2015Aug 23 08:59:00 EDT 2016 benazepril 20 mg-hydrochlorothiazide 25 mg tablet 20-25mg TABLET Oral 1 Time Daily HTN FriAug 20 19:00:00 EDT 2015Aug 29 01:00:00 EDT 2015 HYDROcodone 5 mg-acetaminophen 325 mg tablet 1 tab Oral PRN Every 4 Hours pain FriAug 16 11:00:00 EDT 2015Aug 29 01:00:00 EDT 2015 ALPRAZolam 0.5 mg tablet 1 tab Oral PRN (Max 2 Doses) anxiety FriAug 16 11:00:00 EDT 2015Aug 25 17:36:00 EDT 2016 senna 8.6 mg tablet 8.6mg TABLET Oral OK N Every 12 Hours constipation FriAug 15 17:00:00 EDT 2015Aug 29 01:00:00 EDT 2016 doxycycline hyclate 100 mg capsule 100mg CAPSULE Oral 2 Times Daily for 10 Days infection, PLEASE send Blue capsule per [facility] pharmacist due to guest red dye #40 allergy FriAug 16 10:00:00 EDT 2015Aug 26 09:59:00 EDT 2016 Colace 100 mg capsule 100mg CAPSULE Oral PRN Every 12 Hours FriAug 14 22:00:00 EDT 2015Aug 14 21:57:00 EDT 2016 [place] 5 mg-325 mg tablet 1 tab TABLET Or al PRN Every 4 Hours FriAug 14 22:00:00 EDT 2015Aug 16 10:52:00 EDT 2016 Xarelto 15 mg tablet 15mg TABLET Oral 2 Times Daily for 19 Days FriAug 14 22:00:00 EDT 2015Aug 29 01:00:00 EDT 2016 Xarelto 20 mg tablet 20mg TABLET Oral 1 Time Daily FriSep 03 21:00:00 ED2015Aug 29 01:00:00 EDT 2016 senna 8.6 mg tablet 187mg TABLET Oral 1 Time Daily FriAug 14 21:00:00 EDT 2015Aug 29 01:00:00 EDT 2016 Xanax 0.5 mg tablet 0.5mg TABLET Oral OK N 2 Times Daily FriAug 14 22:00:00 EDT 2015Aug 16 10:53:00 EDT 2016 benazepril 20 mg-hydrochlorothiazide 25 mg tablet 20-25mg TABLET Oral 1 Time Daily FriAug 14 21:00:00 EDT 2015Aug 20 18:40:00 EDT 2016 fluticasone 50 mcg/actuation nasal spray,suspension 1-2 sprays SPRAY, SUSPENSION Intranasal - Both Nostrils 1 Time Daily FriAug 14 09:00:00 ED2015Aug 29 01:00:00 EDT 2016 oxybutynin chloride ER 10 mg tablet,extended release 24 hr 10mg TABLET, EXTENDED RELEASE 24 HR Oral 1 Time Daily FriAug 14 22:00:00 ED2015Aug 29 01:00:00 EDT 2016 doxycycline hyclate 100 mg capsule 100mg CAPSULE Oral 2 Times Daily FriAug 14 22:00:00 EDT 2015Aug 14 21:56:00 EDT 2015 Levaquin 500 mg tablet 500mg TABLET Oral 1 Time Daily FriAug 14 22:00:00 EDT 2015Aug 20 15:50:00 EDT 2016 Problems Active Concerns * Aftercare following joint replacement surgery* Code: * Start Date: FriAug 14 00:00:00 EDT 2015 * End Date: * Text: * Presence of right artificial knee joint* Code: * Start Date: FriAug 14 00:00:00 EDT 2015 * End Date: * Text: * Acute embolism and thrombosis of unspecified deep veins of left lower extremity* Code: * Start Date: FriAug 14 00:00:00 EDT 2015 * End Date: * Text: * Essential (primary) hypertension* Code: * Start Date: FriAug 14 00:00:00 EDT 2015 * End Date: * Text: * Major depressive disorder, single episode, unspecified* Code: * Start Date: FriAug 14 00:00:00 EDT 2015 * End Date: * Text: Reason for Referral Past Medical History
--- OUTSIDE RECORDS SUMMARY | 2025-04-02 08:46 | XMS_ITS | Patient Health Record ---
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 Name Role Phone Juan Manuel Radford MD Primary Care Provider Unavail able Margarita Willett Unavailable [phone] Livia Bowman Unavailable [phone] Allergies Allergen (clinical drug ingredient) Drug/Non Drug Allergy documented on EMR Reaction Allergy Type Onset Date Status FD AND C RED NO.40 (uncoded) Unknown Allergy 01/15/2024 Active RAGWEED POLLEN (uncoded) Unknown Allergy 01/15/2024 Active Pollen TREE POLLEN (uncoded) Unknown Allergy 01/15/20 Active Reason For Referral No Information Medications Medication SIG (Take, Route, Frequency, Duration) Notes Start Date End Date Status Eliquis 5 MG Oral 02/13/2024 Active Venlafaxine HCl ER 150 MG 1 capsule every morning Oral Once a day for 30 days Active Benazepril-hydroCHLOR Othiazide 10-12.5 MG Oral 02/13/2024 Active hydrOXYzine HCl 50 MG 1 tablet at bedtime Oral Once a day As needed 11/26/2024 Active Ketoconazole 2% External 02/13/2024 Act fabián buPROPion HCl ER (XL) 300 MG 1 tablet in the morning Orally Once a day for 30 days 04/01/2025 Active Xiidra 5 % Ophthalmic 02/13/2024 Active Rosuvastatin Calcium 10 MG Oral 02/13/2024 Active Fluticasone Propionate Diskus 50 MCG/ACT Inhalation *Reorder from [employer] for eRx and Interaction Alerts* 02/13/2024 Active Dorzolamide HCl-Timolol Mal 22.3-6.8 MG/ML Ophthalmic 02/13/2024 Active Metoprolol Tartrate 25 MG Oral 02/13/2024 Active Immunizations Vaccine Route Administration Date Status Comme nts Pfizer Biontech Covid-19 Vac cine 2nd dose Unknown 12/08/2020 Administered Pfizer Biontech Covid-19 Vac cine 2nd dose Unknown 12/29/2020 Administered Pfizer Biontech Covid-19 Vac cine 2nd dose Unknown 08/08/2021 Administered Pfizer Biontech Covid-19 Vac cine 2nd dose Unknown 02/06/2022 Administered Social History Tobacco Use: Social History Observation [...] past year? Monthly or less (1 point) Section Notes: Social History Substance Use Do you or have you ever smoked tobacco?: Never smoker How much tobacco do you smoke?: None Do you or have you ever used any other forms of tobacco or nicotine?: No Do you or have you ever used e-cigarettes or vape?: Never used electronic cigarettes What was the date of your most recent tobacco screening?: 01/15/2024 Has tobacco cessation counseling been provided?: No What is your level of alcohol consumption?: Occasional How many years have you consumed alcohol?: 50 Have you ever been counseled for unhealthy alcohol use?: No Do you use any illicit or recreational drugs?: No Which illicit or recreational drugs have you used?: None Have you used IV drugs?: No What is your level of caffeine consumption?: Moderate Education and Occupation What is the highest grade or level of school you have completed or the highest degree you have received?: Some college, no degree Are you currently employed?: No Who is your employer?: Retired Oct 2018 Marriage and Sexuality What is your relationship status?: Are you sexually active?: No Do you use protection during sex?: Always How many children do you have?: 2 Home and Environment Are there any guns present in your home?: No Advance Directive Do you have an advance directive?: No Do you have a medical power of senior trial attorney?: No Social History Substance Use Do you or have you ever smoked tobacco?: Never smoker How much tobacco do you smoke?: None Do you or have you ever used any other forms of tobacco or nicotine?: No Do you or have you ever used e-cigarettes or vape?: Never used electronic cigarettes What was the date of your most recent tobacco screening?: 01/15/2024 Has tobacco cessation counseling been provided?: No What is your level of alcohol consumption?: Occasional How many years have you consumed alcohol?: 50 Have you ever been counseled for unhealthy alcohol use?: No Do you use any illicit or recreational drugs?: No Which illicit or recreational drugs have you used?: None Have you used IV drugs?: No What is your level of caffeine consumption?: Moderate Education and Occupation What is the highest grade or level of school you have completed or the highest degree you have received?: Some college, no degree Are you currently employed?: No Who is your employer?: Retired Oct 2018 Marriage and Sexuality What is your relationship status?: Are you sexually active?: No Do you use protection during sex?: Always How many children do you have?: 2 Home and Environment Are there any guns present in your home?: No Advance Directive Do you have an advance directive?: No Do you have a medical power of senior trial attorney?: No Social History Substance Use Do you or have you ever smoked tobacco?: Never smoker How much tobacco do you smoke?: None Do you or have you ever used any other forms of tobacco or nicotine?: No Do you or have you ever used e-cigarettes or vape?: Never used electronic cigarettes What was the date of your most recent tobacco screening?: 01/15/2024 Has tobacco cessation counseling been provided?: No What is your level of alcohol consumption?: Occasional How many years have you consumed alcohol?: 50 Have you ever been counseled for unhealthy alcohol use?: No Do you use any illicit or recreational drugs?: No Which illicit or recreational drugs have you used?: None Have you used IV drugs?: No What is your level of caffeine consumption?: Moderate Education and Occupation What is the highest grade or level of school you have completed or the highest degree you have received?: Some college, no degree Are you currently employed?: No Who is your employer?: Retired Oct 2018 Marriage and Sexuality What is your relationship status?: Are you sexually active?: No Do you use protection during sex?: Always How many children do you have?: 2 Home and Environment Are there any guns present in your home?: No Advance Directive Do you have an advance directive?: No Do you have a medical power of senior trial attorney?: No Social History Substance Use Do you or have you ever smoked tobacco?: Never smoker How much tobacco do you smoke?: None Do you or have you ever used any other forms of tobacco or nicotine?: No Do you or have you ever used e-cigarettes or vape?: Never used electronic cigarettes What was the date of your most recent tobacco screening?: 01/15/2024 Has tobacco cessation counseling been provided?: No What is your level of alcohol consumption?: Occasional How many years have you consumed alcohol?: 50 Have you ever been counseled for unhealthy alcohol use?: No Do you use any illicit or recreational drugs?: No Which illicit or recreational drugs have you used?: None Have you used IV drugs?: No What is your level of caffeine consumption?: Moderate Education and Occupation What is the highest grade or level of school you have completed or the highest degree you have received?: Some college, no degree Are you currently employed?: No Who is your employer?: Retired Oct 2018 Marriage and Sexuality What is your relationship status?: Are you sexually active?: No Do you use protection during sex?: Always How many children do you have?: 2 Home and Environment Are there any guns present in your home?: No Advance Directive Do you have an advance directive?: No Do you have a medical power of senior trial attorney?: No Social History Substance Use Do you or have you ever smoked tobacco?: Never smoker How much tobacco do you smoke?: None Do you or have you ever used any other forms of tobacco or nicotine?: No Do you or have you ever used e-cigarettes or vape?: Never used electronic cigarettes What was the date of your most recent tobacco screening?: 01/15/2024 Has tobacco cessation counseling been provided?: No What is your level of alcohol consumption?: Occasional How many years have you consumed alcohol?: 50 Have you ever been counseled for unhealthy alcohol use?: No Do you use any illicit or recreational drugs?: No Which illicit or recreational drugs have you used?: None Have you used IV drugs?: No What is your level of caffeine consumption?: Moderate Education and Occupation What is the highest grade or level of school you have completed or the highest degree you have received?: Some college, no degree Are you currently employed?: No Who is your employer?: Retired Oct 2018 Marriage and Sexuality What is your relationship status?: Are you sexually active?: No Do you use protection during sex?: Always How many children do you have?: 2 Home and Environment Are there any guns present in your home?: No Advance Directive Do you have an advance directive?: No Do you have a medical power of senior trial attorney?: No Problems Problem Type SNOMED Code ICD Code Onset Dates Problem Status W/U Status Risk Notes Problem Vitamin D deficiency (21659050) Vitamin D deficiency, unspecified (E55.9) 4 Active confirmed Problem Mild recurrent major depression (41725421) Major depressive disorder, recurrent, mild (F33.0) Active confirmed Problem Moderate recurrent major depression (05148165) Major depressive disorder, recurrent, moderate (F33.1) Active confirmed Problem Generalized anxiety disorder (50801805) Generalized anxiety disorder (F41.1) 4 Active confirmed Problem Primary insomnia (7771776) Primary insomnia (F51.01) 4 Active confirmed Problem Obstructive sleep apnea syndrome (disorder) (39003598) Obstructive sleep apnea (adult) (pediatric) (G47.33) 4 Active confirmed Vital Signs Heart Rate 67 /min 04/01/2025 Height-cm 147.32 cm 04/01/2025 Blood pressure diastolic 76 mm Hg 04/01/2025 Weight-kg 88.91 kg 04/01/2025 Height 58.00 in 04/01/2025 Blood pressure systolic 124 mm Hg 04/01/2025 Weight 196 lbs 04/01/2025 BMI 40.96 kg/m2 04/01/2025 Encounters Encounter Location Date Provider Diagnosis [place] [address] [address] [facility] [address] [facility] [address] [place] [address] 03/29/2025 Margarita Willett [place] [address] [facility] [address] [place] [address] 04/01/2025 Margarita Willett Generalized anxiety disorder F41.1 ; Major depressive disorder, recurrent, mild F33.0 ; Primary insomnia F51.01 ; Encounter for screening for cardiovascular disorders Z13.6 and Encounter for screening for depression Z13.[address] [facility] [address] [place] [address] 04/14/2024 Livia Bowman Major depressive disorder, recurrent, mild F33.0 ; Generalized anxiety disorder F41.1 ; Primary insomnia F51.01 ; Obstructive sleep apnea (adult) (pediatric) G47.33 and Vitamin D deficiency, unspecified E55.[address] [address] 07/14/2024 Livia Bowman Major depressive disorder, recurrent, mild F33.0 ; Generalized anxiety disorder F41.1 ; Primary insomnia F51.01 ; Obstructive sleep apnea (adult) (pediatric) G47.33 and Vitamin D deficiency, unspecified E55.[address] [address] 08/17/2024 Livia Bowman Major depressive disorder, recurrent, mild F33.0 ; Generalized anxiety disorder F41.1 ; Primary insomnia F51.01 ; Obstructive sleep apnea (adult) (pediatric) G47.33 and Vitamin D deficiency, unspecified E55.9 [place] [address] [facility] [address] [place] [address] 09/28/2024 Margarita Willett Generalized anxiety disorder F41.1 ; Major depressive disorder, recurrent, mild F33.0 ; Primary insomnia F51.01 ; Vitamin D deficiency, unspecified E55.9 and Obstructive sleep apnea (adult) (pediatric) G47.33 [place] [address] [facility] [address] [place] [address] 10/28/2024 Margarita Willett Major depressive disorder, recurrent, mild F33.0 ; Generalized anxiety disorder F41.1 ; Primary insomnia F51.01 ; Obstructive sleep apnea (adult) (pediatric) G47.33 and Vitamin D deficiency, unspecified E55.9 [facility] [address] [address] 11/26/2024 Margarita Willett Major depressive disorder, recurrent, mild F33.0 ; Generalized anxiety disorder F41.1 ; Primary insomnia F51.01 ; Obstructive sleep apnea (adult) (pediatric) G47.33 and Vitamin D deficiency, unspecified E55.[address] [address] 12/28/2024 Margarita Willett Major depressive disorder, recurrent, mild F33.0 ; Generalized anxiety disorder F41.1 ; Primary insomnia F51.01 ; Obstructive sleep apnea (adult) (pediatric) G47.33 and Vitamin D deficiency, unspecified E55.[address] [address] 01/24/2025 Margarita Willett Generalized anxiety disorder F41.1 ; Major depressive disorder, recurrent, moderate F33.1 ; Primary insomnia F51.01 ; Obstructive sleep apnea (adult) (pediatric) G47.33 ; Vitamin D deficiency, unspecified E55.9 and Encounter for screening for depression Z13.31 [facility] [address] [address] 02/22/2025 Margarita Willett Generalized anxiety disorder F41.1 ; Primary insomnia F51.01 ; Obstructive sleep apnea (adult) (pediatric) G47.33 ; Major depressive disorder, recurrent, moderate F33.1 ; Vitamin D deficiency, unspecified E55.9 ; Stress due to family tension Z63.8 ; Encounter for screening for depression Z13.31 and Encounter for screening for cardiovascular disorders Z13.[address] [address] 06/18/2024 Livia Bowman [address] [address] 10/06/2024 Margarita Willett [address] [address] 10/07/2024 Margarita Willett Major depressive disorder, recurrent, mild F33.0 [facility] [email or web address] [facility] [address] [place] [address] 10/18/2024 Margaritamorena Willett [facility] [email or web address] [facility] [address] [place] [address] 01/24/2025 Margaritamorena Willett [facility] [email or web address] [facility] [address] [place] [address] 03/18/2025 Margaritamorena Willett [facility] [email or web address] [facility] [address] [place] [address] 03/18/2025 Margaritamorena Willett [facility] [email or web address] [facility] [address] [place] [address] 04/01/2025 Margarita Willett Assessments Encounter Date Diagnosis (ICD Code) Assessment Notes Treatment Notes Treatment Clinical Notes Section Notes 04/14/2024 Major depressive disorder, recurrent, mild (ICD-10 - F33.0) has stopped quetiapine 50mg qhs cont sertraline 200mg daily cont venlafaxine 75mg BID cont therapy overall doing well, no longer taking seroquel as feels managing well without cont other meds, therapy. Education on medications and treatment course f/u in 2 months, earlier if concerns 04/14/2024 Generalized anxiety disorder (ICD-10 - F41.1) meds, therapy as above 07/14/2024 Major depressive disorder, recurrent, mild (ICD-10 - F33.0) just restarted quetiapine 50mg qhs cont sertraline 200mg daily cont venlafaxine 75mg BID cont therapy restarted quetiapine more trouble sleeping/anxiety with stressors at home cont current meds give quetiapine time for effect, review r/b/se cont therapy for social stressors/coping f/u in 1 month, earlier if concerns 08/17/2024 Major depressive disorder, recurrent, mild (ICD-10 - F33.0) stop quetiapine -not taking every day (can take 1/2 tab 1 wk if better tolerated-has avail at home) decrease sertraline to 100mg daily x 1 wk, then 50mg daily x 1 wk, then stop (has enough at home) at the same time start lexapro 5mg qhs x 2 wks, then increase to 10mg qhs cont venlafaxine 75mg BID cont therapy taking quetiapine less consistently, not as helpful for sleep anymore, and feels makes tired in day. mood is still manageable, but anxiety high. education on current meds, purpose, risks etc. discuss tx options, could change sertraline, cross taper venlafaxine to duloxetine, adjunct buspar, consider # serotonin impacting meds. Shared decision to cross taper sertraline to lexapro, review r/b/se including discontinuation effects and serotonin syndrome. Gave written instructions on cross taper cont therapy for social stressors/coping f/u in 6wks, earlier if concerns -discussed transition to new provider as I am leaving the practice after this month 09/28/2024 Major depressive disorder, recurrent, mild (ICD-10 - F33.0) Assessment and Plan: - Rebeca has been experiencing side effects and inefficacy with her current regimen - Concerns about polypharmacy and potential serotonin syndrome were discussed due to concurrent use of multiple serotonergic drugs. - reports escitaolpram not well tolerated and not beneficial, - Reports that venlafaxine helps her more than sertraline. 1. depression and anxiety - depression minimal currently, anxiety high at times, situational, generally manageable Plan: - increase venlafaxine to 100 mg daily, DC escitalopram - monitor changes in mood and anxiety 2. insomnia - reports sleeping better when adhering to a consistent routine and practicing sleep hygiene - has been rarely using quetiapine Plan: - continue seroquel 50 mg HS PRN, encouraged to utilize while changing other medication therapies - stay on consistent routine - continue to practice good sleep hygiene - Encouraged to seek counselling with a new therapist - Provided information about the walk-in counseling option available in this building follow up in 4 weeks to assess symptoms, medication efficacy, and explore further options 09/28/2024 Generalized anxiety disorder (ICD-10 - F41.1) Assessment and Plan: - Rebeca has been experiencing side effects and inefficacy with her current regimen - Concerns about polypharmacy and potential serotonin syndrome were discussed due to concurrent use of multiple serotonergic drugs. - reports escitaolpram not well tolerated and not beneficial, - Reports that venlafaxine helps her more than sertraline. 1. depression and anxiety - depression minimal currently, anxiety high at times, situational, generally manageable Plan: - increase venlafaxine to 100 mg daily, DC escitalopram - monitor changes in mood and anxiety 2. insomnia - reports sleeping better when adhering to a consistent routine and practicing sleep hygiene - has been rarely using quetiapine Plan: - continue seroquel 50 mg HS PRN, encouraged to utilize while changing other medication therapies - stay on consistent routine - continue to practice good sleep hygiene - Encouraged to seek counselling with a new therapist - Provided information about the walk-in counseling option available in this building follow up in 4 weeks to assess symptoms, medication efficacy, and explore further options 10/28/2024 Major depressive disorder, recurrent, mild (ICD-10 - F33.0) CancelRx Response got Denied on 2024-11-26 15:18:19 for 'Venlafaxine HCl ER 75 MG Tablet Extended Release 24 Hour'Pharmacy Notes: Unable to Cancel Rx. Please contact Pharmacy Assessment and Plan: Major Depressive Disorder and Anxiety - making small improvements, has only been on venlafaxine ER 75 mg 3 weeks with the confuson prior - also stopped quetiapine during the time Plan: - Increase venlafaxine ER to 112.5 mg daily, take in the morning - Monitor for side effects and sleep disturbances - Encourage stress-reducing activities (exercise, relaxation techniques, social support) - Continue therapy, again recommended switching as she doesn't think much beenfit from the current one Insomnia - Improved sleep reported after discontinuing quetiapine and changing timing of venlafaxine dosing Plan: - Continue monitoring sleep patterns without medication - Encourage good sleep hygiene practices Family stressors - Patient experiencing stress related to daughter's mental health and living situation Plan: - Encourage setting boundaries with daughter - Suggest seeking support from friends, family, or support groups - Consider referral to therapist or counselor for coping strategies Follow-up in 4-6 weeks to assess effectiveness of increased venlafaxine dose and make further adjustments if necessary 11/26/2024 Major depressive disorder, recurrent, mild (ICD-10 - F33.0) Anxiety/ Depression - making small improvements Plan: - Increase venlafaxine ER to 150 mg daily - Encourage stress-reducing activities (exercise, relaxation techniques, social support) - Continue therapy, again recommended switching as she doesn't think much benefit from the current one Insomnia - Still feeling anxiius thoughts keeping her from falling asleep - Stopped seroquel prior visit due too experiencing terrible dreams Plan: - Start hydroxyzine 50 mg as needed at bedtime for sleep/anxiety - Continue monitoring sleep patterns without medication - Encourage good sleep hygiene practices Family stressors - Patient experiencing stress related to daughter's mental health and living situation Plan: - Encourage setting boundaries with daughter - Suggest seeking support from friends, family, or support groups - Consider referral to therapist or counselor for coping strategies Follow-up in 4-6 weeks to assess for improvements and make further adjustments if necessary 11/26/2024 Generalized anxiety disorder (ICD-10 - F41.1) Anxiety/ Depression - making small improvements Plan: - Increase venlafaxine ER to 150 mg daily - Encourage stress-reducing activities (exercise, relaxation techniques, social support) - Continue therapy, again recommended switching as she doesn't think much benefit from the current one Insomnia - Still feeling anxiius thoughts keeping her from falling asleep - Stopped seroquel prior visit due too experiencing terrible dreams Plan: - Start hydroxyzine 50 mg as needed at bedtime for sleep/anxiety - Continue monitoring sleep patterns without medication - Encourage good sleep hygiene practices Family stressors - Patient experiencing stress related to daughter's mental health and living situation Plan: - Encourage setting boundaries with daughter - Suggest seeking support from friends, family, or support groups - Consider referral to therapist or counselor for coping strategies Follow-up in 4-6 weeks to assess for improvements and make further adjustments if necessary 12/28/2024 Major depressive disorder, recurrent, mild (ICD-10 - F33.0) Anxiety/ Depression - making small improvements - Ongoing stressors, situational factors she feels cause her emotional episodes Plan: - Continue venlafaxine 150 mg daily - Encourage stress-reducing activities (exercise, relaxation techniques, social support) - Continue therapy, again recommended switching as she doesn't think much benefit from the current one Insomnia - anxious thoughts keeping her from falling asleep, hydroxyzine helpful Plan: - Conitnue hydroxyzine 50 mg as needed at bedtime for sleep/anxiety - Continue monitoring sleep patterns - Encourage good sleep hygiene practices Family stressors - Patient experiencing stress related to daughter's mental health and living situation Plan: - Encourage setting boundaries with daughter - Suggest seeking support from friends, family, or support groups - Consider referral to therapist or counselor for coping strategies Follow-up in 2 months to assess for improvements and make further adjustments if necessary 01/24/2025 Major depressive disorder, recurrent, moderate (ICD-10 - F33.1) 01/24/2025 Generalized anxiety disorder (ICD-10 - F41.1) 10/07/2024 Major depressive disorder, recurrent, mild (ICD-10 - F33.0) 02/22/2025 Generalized anxiety disorder (ICD-10 - F41.1) 04/01/2025 Major depressive disorder, recurrent, mild (ICD-10 - F33.0) 04/01/2025 Generalized anxiety disorder (ICD-10 - F41.1) 04/01/2025 Primary insomnia (ICD-10 - F51.01) 02/22/2025 Primary insomnia (ICD-10 - F51.01) 01/24/2025 Primary insomnia (ICD-10 - F51.01) 12/28/2024 Generalized anxiety disorder (ICD-10 - F41.1) Anxiety/ Depression - making small improvements - Ongoing stressors, situational factors she feels cause her emotional episodes Plan: - Continue venlafaxine 150 mg daily - Encourage stress-reducing activities (exercise, relaxation techniques, social support) - Continue therapy, again recommended switching as she doesn't think much benefit from the current one Insomnia - anxious thoughts keeping her from falling asleep, hydroxyzine helpful Plan: - Conitnue hydroxyzine 50 mg as needed at bedtime for sleep/anxiety - Continue monitoring sleep patterns - Encourage good sleep hygiene practices Family stressors - Patient experiencing stress related to daughter's mental health and living situation Plan: - Encourage setting boundaries with daughter - Suggest seeking support from friends, family, or support groups - Consider referral to therapist or counselor for coping strategies Follow-up in 2 months to assess for improvements and make further adjustments if necessary 11/26/2024 Primary insomnia (ICD-10 - F51.01) Anxiety/ Depression - making small improvements Plan: - Increase venlafaxine ER to 150 mg daily - Encourage stress-reducing activities (exercise, relaxation techniques, social support) - Continue therapy, again recommended switching as she doesn't think much benefit from the current one Insomnia - Still feeling anxiius thoughts keeping her from falling asleep - Stopped seroquel prior visit due too experiencing terrible dreams Plan: - Start hydroxyzine 50 mg as needed at bedtime for sleep/anxiety - Continue monitoring sleep patterns without medication - Encourage good sleep hygiene practices Family stressors - Patient experiencing stress related to daughter's mental health and living situation Plan: - Encourage setting boundaries with daughter - Suggest seeking support from friends, family, or support groups - Consider referral to therapist or counselor for coping strategies Follow-up in 4-6 weeks to assess for improvements and make further adjustments if necessary 10/28/2024 Generalized anxiety disorder (ICD-10 - F41.1) Assessment and Plan: Major Depressive Disorder and Anxiety - making small improvements, has only been on venlafaxine ER 75 mg 3 weeks with the confuson prior - also stopped quetiapine during the time Plan: - Increase venlafaxine ER to 112.5 mg daily, take in the morning - Monitor for side effects and sleep disturbances - Encourage stress-reducing activities (exercise, relaxation techniques, social support) - Continue therapy, again recommended switching as she doesn't think much beenfit from the current one Insomnia - Improved sleep reported after discontinuing quetiapine and changing timing of venlafaxine dosing Plan: - Continue monitoring sleep patterns without medication - Encourage good sleep hygiene practices Family stressors - Patient experiencing stress related to daughter's mental health and living situation Plan: - Encourage setting boundaries with daughter - Suggest seeking support from friends, family, or support groups - Consider referral to therapist or counselor for coping strategies Follow-up in 4-6 weeks to assess effectiveness of increased venlafaxine dose and make further adjustments if necessary 09/28/2024 Primary insomnia (ICD-10 - F51.01) Assessment and Plan: - Rebeca has been experiencing side effects and inefficacy with her current regimen - Concerns about polypharmacy and potential serotonin syndrome were discussed due to concurrent use of multiple serotonergic drugs. - reports escitaolpram not well tolerated and not beneficial, - Reports that venlafaxine helps her more than sertraline. 1. depression and anxiety - depression minimal currently, anxiety high at times, situational, generally manageable Plan: - increase venlafaxine to 100 mg daily, DC escitalopram - monitor changes in mood and anxiety 2. insomnia - reports sleeping better when adhering to a consistent routine and practicing sleep hygiene - has been rarely using quetiapine Plan: - continue seroquel 50 mg HS PRN, encouraged to utilize while changing other medication therapies - stay on consistent routine - continue to practice good sleep hygiene - Encouraged to seek counselling with a new therapist - Provided information about the walk-in counseling option available in this building follow up in 4 weeks to assess symptoms, medication efficacy, and explore further options 08/17/2024 Generalized anxiety disorder (ICD-10 - F41.1) meds, therapy as above 07/14/2024 Generalized anxiety disorder (ICD-10 - F41.1) meds, therapy as above 04/14/2024 Primary insomnia (ICD-10 - F51.01) sleeping well currently practice good sleep hygiene 04/14/2024 Obstructive sleep apnea (adult) (pediatric) (ICD-10 - G47.33) uses CPAP 07/14/2024 Primary insomnia (ICD-10 - F51.01) worse with stress, medication helps practice good sleep hygiene 08/17/2024 Primary insomnia (ICD-10 - F51.01) treat mood/anxiety practice good sleep hygiene 10/28/2024 Primary insomnia (ICD-10 - F51.01) Assessment and Plan: Major Depressive Disorder and Anxiety - making small improvements, has only been on venlafaxine ER 75 mg 3 weeks with the confuson prior - also stopped quetiapine during the time Plan: - Increase venlafaxine ER to 112.5 mg daily, take in the morning - Monitor for side effects and sleep disturbances - Encourage stress-reducing activities (exercise, relaxation techniques, social support) - Continue therapy, again recommended switching as she doesn't think much beenfit from the current one Insomnia - Improved sleep reported after discontinuing quetiapine and changing timing of venlafaxine dosing Plan: - Continue monitoring sleep patterns without medication - Encourage good sleep hygiene practices Family stressors - Patient experiencing stress related to daughter's mental health and living situation Plan: - Encourage setting boundaries with daughter - Suggest seeking support from friends, family, or support groups - Consider referral to therapist or counselor for coping strategies Follow-up in 4-6 weeks to assess effectiveness of increased venlafaxine dose and make further adjustments if necessary 11/26/2024 Obstructive sleep apnea (adult) (pediatric) (ICD-10 - G47.33) Anxiety/ Depression - making small improvements Plan: - Increase venlafaxine ER to 150 mg daily - Encourage stress-reducing activities (exercise, relaxation techniques, social support) - Continue therapy, again recommended switching as she doesn't think much benefit from the current one Insomnia - Still feeling anxiius thoughts keeping her from falling asleep - Stopped seroquel prior visit due too experiencing terrible dreams Plan: - Start hydroxyzine 50 mg as needed at bedtime for sleep/anxiety - Continue monitoring sleep patterns without medication - Encourage good sleep hygiene practices Family stressors - Patient experiencing stress related to daughter's mental health and living situation Plan: - Encourage setting boundaries with daughter - Suggest seeking support from friends, family, or support groups - Consider referral to therapist or counselor for coping strategies Follow-up in 4-6 weeks to assess for improvements and make further adjustments if necessary 12/28/2024 Primary insomnia (ICD-10 - F51.01) Anxiety/ Depression - making small improvements - Ongoing stressors, situational factors she feels cause her emotional episodes Plan: - Continue venlafaxine 150 mg daily - Encourage stress-reducing activities (exercise, relaxation techniques, social support) - Continue therapy, again recommended switching as she doesn't think much benefit from the current one Insomnia - anxious thoughts keeping her from falling asleep, hydroxyzine helpful Plan: - Conitnue hydroxyzine 50 mg as needed at bedtime for sleep/anxiety - Continue monitoring sleep patterns - Encourage good sleep hygiene practices Family stressors - Patient experiencing stress related to daughter's mental health and living situation Plan: - Encourage setting boundaries with daughter - Suggest seeking support from friends, family, or support groups - Consider referral to therapist or counselor for coping strategies Follow-up in 2 months to assess for improvements and make further adjustments if necessary 01/24/2025 Obstructive sleep apnea (adult) (pediatric) (ICD-10 - G47.33) 02/22/2025 Obstructive sleep apnea (adult) (pediatric) (ICD-10 - G47.33) 04/01/2025 Encounter for screening for cardiovascular disorders (ICD-10 - Z13.6) 09/28/2024 Vitamin D deficiency, unspecified (ICD-10 - E55.9) Assessment and Plan: - Rebeca has been experiencing side effects and inefficacy with her current regimen - Concerns about polypharmacy and potential serotonin syndrome were discussed due to concurrent use of multiple serotonergic drugs. - reports escitaolpram not well tolerated and not beneficial, - Reports that venlafaxine helps her more than sertraline. 1. depression and anxiety - depression minimal currently, anxiety high at times, situational, generally manageable Plan: - increase venlafaxine to 100 mg daily, DC escitalopram - monitor changes in mood and anxiety 2. insomnia - reports sleeping better when adhering to a consistent routine and practicing sleep hygiene - has been rarely using quetiapine Plan: - continue seroquel 50 mg HS PRN, encouraged to utilize while changing other medication therapies - stay on consistent routine - continue to practice good sleep hygiene - Encouraged to seek counselling with a new therapist - Provided information about the walk-in counseling option available in this building follow up in 4 weeks to assess symptoms, medication efficacy, and explore further options 04/01/2025 Encounter for screening for depression (ICD-10 - Z13.31) 02/22/2025 Vitamin D deficiency, unspecified (ICD-10 - E55.9) 02/22/2025 Major depressive disorder, recurrent, moderate (ICD-10 - F33.1) 12/28/2024 Obstructive sleep apnea (adult) (pediatric) (ICD-10 - G47.33) Anxiety/ Depression - making small improvements - Ongoing stressors, situational factors she feels cause her emotional episodes Plan: - Continue venlafaxine 150 mg daily - Encourage stress-reducing activities (exercise, relaxation techniques, social support) - Continue therapy, again recommended switching as she doesn't think much benefit from the current one Insomnia - anxious thoughts keeping her from falling asleep, hydroxyzine helpful Plan: - Conitnue hydroxyzine 50 mg as needed at bedtime for sleep/anxiety - Continue monitoring sleep patterns - Encourage good sleep hygiene practices Family stressors - Patient experiencing stress related to daughter's mental health and living situation Plan: - Encourage setting boundaries with daughter - Suggest seeking support from friends, family, or support groups - Consider referral to therapist or counselor for coping strategies Follow-up in 2 months to assess for improvements and make further adjustments if necessary 01/24/2025 Vitamin D deficiency, unspecified (ICD-10 - E55.9) 10/28/2024 Obstructive sleep apnea (adult) (pediatric) (ICD-10 - G47.33) Assessment and Plan: Major Depressive Disorder and Anxiety - making small improvements, has only been on venlafaxine ER 75 mg 3 weeks with the confuson prior - also stopped quetiapine during the time Plan: - Increase venlafaxine ER to 112.5 mg daily, take in the morning - Monitor for side effects and sleep disturbances - Encourage stress-reducing activities (exercise, relaxation techniques, social support) - Continue therapy, again recommended switching as she doesn't think much beenfit from the current one Insomnia - Improved sleep reported after discontinuing quetiapine and changing timing of venlafaxine dosing Plan: - Continue monitoring sleep patterns without medication - Encourage good sleep hygiene practices Family stressors - Patient experiencing stress related to daughter's mental health and living situation Plan: - Encourage setting boundaries with daughter - Suggest seeking support from friends, family, or support groups - Consider referral to therapist or counselor for coping strategies Follow-up in 4-6 weeks to assess effectiveness of increased venlafaxine dose and make further adjustments if necessary 11/26/2024 Vitamin D deficiency, unspecified (ICD-10 - E55.9) Anxiety/ Depression - making small improvements Plan: - Increase venlafaxine ER to 150 mg daily - Encourage stress-reducing activities (exercise, relaxation techniques, social support) - Continue therapy, again recommended switching as she doesn't think much benefit from the current one Insomnia - Still feeling anxiius thoughts keeping her from falling asleep - Stopped seroquel prior visit due too experiencing terrible dreams Plan: - Start hydroxyzine 50 mg as needed at bedtime for sleep/anxiety - Continue monitoring sleep patterns without medication - Encourage good sleep hygiene practices Family stressors - Patient experiencing stress related to daughter's mental health and living situation Plan: - Encourage setting boundaries with daughter - Suggest seeking support from friends, family, or support groups - Consider referral to therapist or counselor for coping strategies Follow-up in 4-6 weeks to assess for improvements and make further adjustments if necessary 08/17/2024 Obstructive sleep apnea (adult) (pediatric) (ICD-10 - G47.33) uses CPAP 09/28/2024 Obstructive sleep apnea (adult) (pediatric) (ICD-10 - G47.33) Assessment and Plan: - Rebeca has been experiencing side effects and inefficacy with her current regimen - Concerns about polypharmacy and potential serotonin syndrome were discussed due to concurrent use of multiple serotonergic drugs. - reports escitaolpram not well tolerated and not beneficial, - Reports that venlafaxine helps her more than sertraline. 1. depression and anxiety - depression minimal currently, anxiety high at times, situational, generally manageable Plan: - increase venlafaxine to 100 mg daily, DC escitalopram - monitor changes in mood and anxiety 2. insomnia - reports sleeping better when adhering to a consistent routine and practicing sleep hygiene - has been rarely using quetiapine Plan: - continue seroquel 50 mg HS PRN, encouraged to utilize while changing other medication therapies - stay on consistent routine - continue to practice good sleep hygiene - Encouraged to seek counselling with a new therapist - Provided information about the walk-in counseling option available in this building follow up in 4 weeks to assess symptoms, medication efficacy, and explore further options 07/14/2024 Obstructive sleep apnea (adult) (pediatric) (ICD-10 - G47.33) uses CPAP 04/14/2024 Vitamin D deficiency, unspecified (ICD-10 - E55.9) hx; PCP manages supplement 08/17/2024 Vitamin D deficiency, unspecified (ICD-10 - E55.9) hx; PCP manages supplement 07/14/2024 Vitamin D deficiency, unspecified (ICD-10 - E55.9) hx; PCP manages supplement 12/28/2024 Vitamin D deficiency, unspecified (ICD-10 - E55.9) Anxiety/ Depression - making small improvements - Ongoing stressors, situational factors she feels cause her emotional episodes Plan: - Continue venlafaxine 150 mg daily - Encourage stress-reducing activities (exercise, relaxation techniques, social support) - Continue therapy, again recommended switching as she doesn't think much benefit from the current one Insomnia - anxious thoughts keeping her from falling asleep, hydroxyzine helpful Plan: - Conitnue hydroxyzine 50 mg as needed at bedtime for sleep/anxiety - Continue monitoring sleep patterns - Encourage good sleep hygiene practices Family stressors - Patient experiencing stress related to daughter's mental health and living situation Plan: - Encourage setting boundaries with daughter - Suggest seeking support from friends, family, or support groups - Consider referral to therapist or counselor for coping strategies Follow-up in 2 months to assess for improvements and make further adjustments if necessary 01/24/2025 Encounter for screening for depression (ICD-10 - Z13.31) 10/28/2024 Vitamin D deficiency, unspecified (ICD-10 - E55.9) Assessment and Plan: Major Depressive Disorder and Anxiety - making small improvements, has only been on venlafaxine ER 75 mg 3 weeks with the confuson prior - also stopped quetiapine during the time Plan: - Increase venlafaxine ER to 112.5 mg daily, take in the morning - Monitor for side effects and sleep disturbances - Encourage stress-reducing activities (exercise, relaxation techniques, social support) - Continue therapy, again recommended switching as she doesn't think much beenfit from the current one Insomnia - Improved sleep reported after discontinuing quetiapine and changing timing of venlafaxine dosing Plan: - Continue monitoring sleep patterns without medication - Encourage good sleep hygiene practices Family stressors - Patient experiencing stress related to daughter's mental health and living situation Plan: - Encourage setting boundaries with daughter - Suggest seeking support from friends, family, or support groups - Consider referral to therapist or counselor for coping strategies Follow-up in 4-6 weeks to assess effectiveness of increased venlafaxine dose and make further adjustments if necessary 02/22/2025 Stress due to family tension (ICD-10 - Z63.8) 02/22/2025 Encounter for screening for depression (ICD-10 - Z13.31) 02/22/2025 Encounter for screening for cardiovascular disorders (ICD-10 - Z13.6) 04/01/2025 Other Rebeca Shaw, an 79-year-old female with a [...] of avoiding straining due to anticoagulation therapy 04/14/2024 Other 09/28/2024 Other referral to the local chapter or national office of the Alzheimer[employer] (4-123-985-39 00; http://www.al z.org), the Alzheimer's Disease Education [facility]erral [facility] (ADE[facility]) (8-178-304-43 80; http://www.ni a.nih.gov/Alz stevie/), Assessment and Plan: - Rebeca has been experiencing side effects and inefficacy with her current regimen - Concerns about polypharmacy and potential serotonin syndrome were discussed due to concurrent use of multiple serotonergic drugs. - reports escitaolpram not well tolerated and not beneficial, - Reports that venlafaxine helps her more than sertraline. 1. depression and anxiety - depression minimal currently, anxiety high at times, situational, generally manageable Plan: - increase venlafaxine to 100 mg daily, DC escitalopram - monitor changes in mood and anxiety 2. insomnia - reports sleeping better when adhering to a consistent routine and practicing sleep hygiene - has been rarely using quetiapine Plan: - continue seroquel 50 mg HS PRN, encouraged to utilize while changing other medication therapies - stay on consistent routine - continue to practice good sleep hygiene - Encouraged to seek counselling with a new therapist - Provided information about the walk-in counseling option available in this building follow up in 4 weeks to assess symptoms, medication efficacy, and explore further options 01/24/2025 Other Rebeca Shaw, an adult female patient with a history of depression and anxiety, presents with ongoing mood symptoms, lack of motivation, and recent urinary tract infection (UTI) treatment. Major Depressive Disorder Assessment: Patient reports persistent depressive symptoms, including lack of motivation, anhedonia, and passive suicidal ideation without intent or plan. Current treatment with venlafaxine has provided some improvement in anxiety symptoms but inadequate relief for depressive symptoms. Patient sleeps excessively at times, which may be related to medication side effects or depression. Plan: - Continue venlafaxine 150 PO daily - Start bupropion XL 150 PO daily in the morning - Informed patient that bupropion works on dopamine and can be safely combined with venlafaxine - Advised that bupropion may help increase energy and motivation - Instructed to take in the morning to avoid sleep interference - Refer for psychotherapy - Follow up in 3-4 weeks, with option for earlier appointment if needed Generalized Anxiety Disorder Assessment: Patient reports some improvement in anxiety symptoms with current medication regimen, particularly in managing daily tasks like balancing checkbook. However, anxiety is not fully controlled. Plan: - Continue current anxiety medication regimen - Monitor for further improvement with the addition of bupropion - Encourage continuation of anxiety management techniques 02/22/2025 Other Rebeca Shaw, female patient with history of diverticulitis, incontinence, and anxiety, presenting with constipation, recurrent UTIs, and recent falls. Major Depressive Disorder Assessment: Patient reports improved mood overall with current medication regimen. However, she expressed passive suicidal ideation, stating I really [facility], although she denies active suicidal thoughts or intent. This suggests ongoing depressive symptoms despite some improvement. Plan: - Continue bupropion XL 150 mg PO daily in the morning for depression - Follow up in 1 month to reassess mood and medication efficacy Generalized Anxiety Disorder Assessment: Patient reports ongoing anxiety and stress, but notes that the current medication has been helpful. She takes the medication in the morning and reports good sleep with it. Plan: - Continue venlafaxine 150 mg PO daily for anxiety - Continue hydroxyzine 50 mg tablet at bedtime as needed for sleep - Follow up in 1 month to reassess anxiety symptoms and medication efficacy Constipation Assessment: Patient reports severe constipation, with bowel movements only every 3 days. She has a history of diverticulitis with a previous abscess. The constipation may be a side effect of her current medication regimen, as noted by the pharmacist. Patient has been using olive oil in food and Metamucil in the morning to manage symptoms. Plan: - Recommend increased water intake as suggested by the pharmacist - Recommend exploring options such as fiber gummies - Monitor for improvement and reassess at follow-up appointment Recurrent Urinary Tract Infections Assessment: Patient reports ongoing UTI since December 30, with recent prescription of a new antibiotic. She has a history of incontinence, which increases her risk for UTIs. Patient is concerned about prolonged antibiotic use reducing efficacy. Plan: - Complete newly prescribed course of antibiotics - Encourage follow-up with urologist for management of incontinence and consideration of Botox treatments for bladder - Monitor for resolution of UTI symptoms and reassess at follow-up appointment Falls Assessment: Patient reports recent falls, including one in the house and another while getting mail. She has installed grab bars in her home for safety. Plan: - Encourage continued use of installed grab bars and other home safety measures - Assess gait and balance at follow-up appointment - Monitor for any lightheadedness or dizziness 10/07/2024 Other CancelRx Response got Denied on 2024-11-26 15:18:18 for 'Venlafaxine HCl ER 37.5 MG Tablet Extended Release 24 Hour'Pharmacy Notes: Unable to Cancel Rx. Please contact Pharmacy Plan Of Treatment Next Appt Details Provider Name:Margarita apodaca, 04/29/2025 03:00:00 PM, [address] [facility] [address], [facility] [address], [address], Insurance Providers Payer Name Payer Address Payer Phone Subscriber Number Group Number Insured Name Patient Relationship to Insured Coverage Start Date Coverage End Date Medicare-I l Medicare [address] [place] [phone] [id number] REBECA SHAW Self - patient is the insured [facility] [address] [place] [address] [id number] REBECA SHAW Self - patient is the insured Medical (General) History Medical History History ICD Code Past Psychiatric History: Anxiety Disord er,Major Depressive Episode undefined Obesity Obstructive sleep apnea syndrome Primary insomnia Vitamin D deficiency atrial fibrillation Benign essential HTN I10 Surgical History Surgery Date(Month/Year) Cataract surgery (28052) Appendectomy (13944) Tonsilectomy/adenoids 11/03/1953 Hysterectomy (88885) 11/03/1989 Breast surgery (63786) 11/03/2000 Removal of gallbladder (52298) 4 Hospitalization History Reason Date(Month/Year) surgeries
== END 2025-04-02 08:44 | disposition home or self-care (01) ==
PROVIDERS: Visit Provider Emergency Medicine
DX: M85.89 Other specified disorders of bone density and structure, multiple sites (principal); M81.0 Age-related osteoporosis without current pathological fracture; Z78.0 Asymptomatic menopausal state; E55.9 Vitamin D deficiency, unspecified
CPT/HCPCS: 77080

== ENCOUNTER 2025-05-20 21:22 | Emergency (ER) | payer MEDICARE, BC, SELFPAY ==
--- NOTE | ~2025-05-20 | CT_ITS ---
EXAMINATION: CT brain wo con DATE: 05/21/2025 01:48 INDICATION: Status post fall. Patient on blood thinners. TECHNIQUE: Computed tomography (CT) of the head was performed without intravenous contrast. The dose- length product was 605.33 mGy-cm. Automated exposure control and iterative reconstruction technique w ere employed. COMPARISON: CT dated 08/07/2016 FINDINGS: Generalized atrophy. There are scattered mild periventricular and subcortical white matter changes, most likely related to small vessel ischemic disease (microangiopathy). No ventriculomegaly or midline shift. Basilar cisterns are patent. There is intracranial atherosclerosis. Paranasal sinus es and mastoids are pneumatized. No depressed skull fractures. IMPRESSION: 1. No acute intracranial abnormality. Reviewed, dictated and finalized at location A.
--- NOTE | ~2025-05-20 | XR_ITS ---
XR chest 1V portable 05/21/2025 04:16 Indication: Rib cage pain. Procedure: AP portable chest Comparison: 08/19/2018 Findings: Borderline heart size. There are interstitial infiltrates bilaterally. No significant effus ion or pneumothorax. No acute osseous abnormality. Impression: 1: Bilateral interstitial infiltrates. Differential diagnosis includes atypical pneumonia, mild edema and chronic interstitial lung disease. Reviewed, dictated and finalized at location A. Impression: 1: Bilateral interstitial infiltrates. Differential diagnosis includes atypical pneumonia, mild edema and chronic interstitial lung disease.
--- NOTE | ~2025-05-20 | CT_ITS ---
CT Facial Bones and Cervical Spine Clinical Indication: Injury Technique: Contiguous axial scans were obtained through the facial bones and cervical spine followed by coronal and sagittal reconstructions. Dose reduction technique was used on this scan by utilizing automated exposure control and iterative reconstruction technique. The dose-length product (DLP) was 605.33 mGy-cm. Findings: CT facial bones: No fractures are identified. The visualized paranasal sinuses are clear. Intraorbita l soft tissues appear normal. CT cervical spine: No fractures or subluxation. There is mild reversal of normal cervical lordosis. There is moderate degenerative disc changes throughout the cervical spine, more advanced degenerative disc narrowing at C6-C7. There is multilevel mild to moderate facet arthropathy. There is right neur al foraminal narrowing at C3-C4. There is probable mild bilateral neural foraminal narrowing at C4-C5 . There is mild bilateral neural foraminal narrowing at C5-C6. There is bilateral neural foraminal na rrowing at C6-C7. No prevertebral soft tissue swelling. Impression: No fracture is seen in the facial bones. No fracture or subluxation of the cervical spine. Degenerative spondylosis, as above. Reviewed, dictated and finalized at location . Impression: No fracture is seen in the facial bones. No fracture or subluxation of the cervical spine. Degenerative spondylosis, as above.
--- OUTSIDE RECORDS SUMMARY | 2025-05-20 21:25 | XMS_ITS | Patient Health Record ---
Author Organization [facility] [employer] [facility] Address [address] [place] [address] Care Team Providers Care Pocket Builder Name Role Phone Juan Manuel Radford MD Primary Care Provider Unavail able Margarita Willett Unavailable [phone] Livia Bowman Unavailable [phone] Allergies Allergen (clinical drug ingredient) Drug/Non Drug [...] End Date Status hydrOXYzine HCl 50 MG 1 tablet at bedtime Oral Once a day As needed 11/26/2024 Active Venlafaxine HCl ER 150 MG 1 capsule every morning Oral Once a day; Duration: 30 days Active Xiidra 5 % Ophthalmic 02/13/2024 Active Ketoconazole 2% External 02/13/2024 Act fabián Benazepril-hydroCHLOR Othiazide 10-12.5 MG Oral 02/13/2024 Active Metoprolol Tartrate 25 MG Oral 02/13/2024 Active Dorzolamide HCl-Timolol Mal 22.3-6.8 MG/ML Ophthalmic 02/13/2024 Active Fluticasone Propionate Diskus 50 MCG/ACT Inhalation *Reorder from [employer] for eRx and Interaction Alerts* 02/13/2024 Active Rosuvastatin Calcium 10 MG Oral 02/13/2024 Active buPROPion HCl ER (XL) 300 MG 1 tablet in the morning Orally Once a day; Duration: 30 days Active Eliquis 5 MG Oral 02/13/2024 Active Immunizations Vaccine Route [...] Do you have a medical power of defense attorney?: No Social History Substance Use Do [...] Do you have a medical power of defense attorney?: No Social History Substance Use Do [...] Do you have a medical power of defense attorney?: No Social History Substance Use Do [...] Do you have a medical power of defense attorney?: No Social History Substance Use Do [...] Do you have a medical power of defense attorney?: No Problems Problem Type SNOMED Code ICD Code Onset Dates Problem Status W/U Status Risk Notes Problem Vitamin D deficiency (06957545) Vitamin D deficiency, unspecified (E55.9) 4 Active confirmed Problem Mild recurrent major depression (50176673) Major depressive disorder, recurrent, mild (F33.0) Active confirmed Problem Moderate recurrent major depression (95006923) Major depressive disorder, recurrent, moderate (F33.1) Active confirmed Problem Generalized anxiety disorder (85179641) Generalized anxiety disorder (F41.1) 4 Active confirmed Problem Primary insomnia (2304026) Primary insomnia (F51.01) 4 Active confirmed Problem Obstructive sleep apnea syndrome (disorder) (96697293) Obstructive sleep apnea (adult) (pediatric) (G47.33) 4 Active confirmed Problem Family conflict (36449027) Family conflict (Z63.8) Active confirmed Vital Signs Heart Rate 67 /min 04/01/2025 Height-cm 147.32 cm 04/01/2025 Blood pressure diastolic 76 mm Hg 04/01/2025 Weight-kg 88.91 kg 04/01/2025 Height 58.00 in 04/01/2025 Blood pressure systolic 124 mm Hg 04/01/2025 Weight 196 lbs 04/01/2025 BMI 40.96 kg/m2 04/01/2025 Encounters Encounter Location Date Provider Diagnosis [facility] [employer] [place] [address] [facility] [address] [address] 07/14/2024 Livia Bowman Major depressive disorder, recurrent, mild F33.0 ; Generalized anxiety disorder F41.1 ; Primary insomnia F51.01 ; Obstructive sleep apnea (adult) (pediatric) G47.33 and Vitamin D deficiency, unspecified E55.9 [facility] [place] [address] [facility] [address] [address] 08/17/2024 Livia Bowman Major depressive disorder, recurrent, mild F33.0 ; Generalized anxiety disorder F41.1 ; Primary insomnia F51.01 ; Obstructive sleep apnea (adult) (pediatric) G47.33 and Vitamin D deficiency, unspecified E55.9 [facility] [place] [address] [facility] [address] [address] 09/28/2024 Margarita Willett Generalized anxiety disorder F41.1 ; Major depressive disorder, recurrent, mild F33.0 ; Primary insomnia F51.01 ; Vitamin D deficiency, unspecified E55.9 and Obstructive sleep apnea (adult) (pediatric) G47.33 [facility] [employer] [place] [address] [facility] [address] [address] 10/28/2024 Margarita Willett Major depressive disorder, recurrent, mild F33.0 ; Generalized anxiety disorder F41.1 ; Primary insomnia F51.01 ; Obstructive sleep apnea (adult) (pediatric) G47.33 and Vitamin D deficiency, unspecified E55.9 [facility] [place] [address] [facility] [address] [address] 11/26/2024 Margarita Willett Major depressive disorder, recurrent, mild F33.0 ; Generalized anxiety disorder F41.1 ; Primary insomnia F51.01 ; Obstructive sleep apnea (adult) (pediatric) G47.33 and Vitamin D deficiency, unspecified E55.9 [facility] [place] [address] [address] 12/28/2024 Margarita Willett Major depressive disorder, recurrent, mild F33.0 ; Generalized anxiety disorder F41.1 ; Primary insomnia F51.01 ; Obstructive sleep apnea (adult) (pediatric) G47.33 and Vitamin D deficiency, unspecified E55.9 [place] [address] [facility] [address] [place] [address] 01/24/2025 Margarita Willett Generalized anxiety disorder F41.1 ; Major depressive disorder, recurrent, moderate F33.1 ; Primary insomnia F51.01 ; Obstructive sleep apnea (adult) (pediatric) G47.33 ; Vitamin D deficiency, unspecified E55.9 and Encounter for screening for depression Z13.31 [place] [address] [facility] [address] [place] [address] 02/22/2025 Margarita Willett Generalized anxiety disorder F41.1 ; Primary insomnia F51.01 ; Obstructive sleep apnea (adult) (pediatric) G47.33 ; Major depressive disorder, recurrent, moderate F33.1 ; Vitamin D deficiency, unspecified E55.9 ; Stress due to family tension Z63.8 ; Encounter for screening for depression Z13.31 and Encounter for screening for cardiovascular disorders Z13.[address] [facility] [address] [place] [address] 04/01/2025 Margarita Willett Generalized anxiety disorder F41.1 ; Major depressive disorder, recurrent, mild F33.0 ; Primary insomnia F51.01 ; Family conflict Z63.8 ; Encounter for screening for cardiovascular disorders Z13.6 and Encounter for screening for depression Z13.31 [place] [address] [address] 06/18/2024 Livia Bowman [facility] [place], [place] [address] [address] 10/06/2024 Margarita Willett [place] [address] [facility] [address] [place] [address] 10/07/2024 Margarita Willett Major depressive disorder, recurrent, mild F33.0 [facility] [place] [address] [facility] [address] [place] [address] 10/18/2024 Margarita Willett [place] [address] [facility] [address] [place] [address] 04/29/2025 Margarita Willett Major depressive disorder, recurrent, mild F33.0 [facility] [place] [address] [facility] [address] [place] [address] 01/24/2025 Margaritamorena Rosendivine [facility] [employer] [facility] [address] [place] [address] 03/18/2025 Margaritamorena Willett [facility] [employer] [facility] [address] [place] [address] 03/18/2025 Margaritamorena Rosendivine [facility] [employer] [facility] [address] [place] [address] 04/01/2025 Margarita Silasdivine Assessments Encounter Date Diagnosis (ICD Code) Assessment Notes Treatment Notes Treatment Clinical Notes Section Notes 08/17/2024 Major depressive disorder, recurrent, mild (ICD-10 [...] am leaving the practice after this month 02/22/2025 Generalized anxiety disorder (ICD-10 - F41.1) 09/28/2024 Major depressive disorder, recurrent, mild (ICD-10 [...] medication efficacy, and explore further options 07/14/2024 Major depressive disorder, recurrent, mild (ICD-10 - F33.0) just restarted quetiapine 50mg qhs cont sertraline 200mg daily cont venlafaxine 75mg BID cont therapy restarted quetiapine more trouble sleeping/anxiety with stressors at home cont current meds give quetiapine time for effect, review r/b/se cont therapy for social stressors/coping f/u in 1 month, earlier if concerns 10/07/2024 Major depressive disorder, recurrent, mild (ICD-10 - F33.0) 10/28/2024 Major depressive disorder, recurrent, mild (ICD-10 [...] dose and make further adjustments if necessary 12/28/2024 [...] 01/24/2025 Generalized anxiety disorder (ICD-10 - F41.1) 04/29/2025 Major depressive disorder, recurrent, mild (ICD-10 - F33.0) 11/26/2024 Major depressive disorder, recurrent, mild (ICD-10 [...] improvements and make further adjustments if necessary 04/01/2025 Major depressive disorder, recurrent, mild (ICD-10 - F33.0) 04/01/2025 Generalized anxiety disorder (ICD-10 - F41.1) 04/01/2025 Primary insomnia (ICD-10 - F51.01) 11/26/2024 Primary insomnia (ICD-10 - F51.01) Anxiety/ [...] and make further adjustments if necessary 01/24/2025 Primary insomnia (ICD-10 - F51.01) 12/28/2024 [...] dose and make further adjustments if necessary 07/14/2024 Generalized anxiety disorder (ICD-10 - F41.1) meds, therapy as above 09/28/2024 Primary insomnia (ICD-10 - F51.01) Assessment [...] symptoms, medication efficacy, and explore further options 02/22/2025 Primary insomnia (ICD-10 - F51.01) 08/17/2024 Generalized anxiety disorder (ICD-10 - F41.1) meds, therapy as above 08/17/2024 Primary insomnia (ICD-10 - F51.01) treat mood/anxiety practice good sleep hygiene 02/22/2025 Obstructive sleep apnea (adult) (pediatric) (ICD-10 - G47.33) 07/14/2024 Primary insomnia (ICD-10 - F51.01) worse with stress, medication helps practice good sleep hygiene 10/28/2024 Primary insomnia (ICD-10 - F51.01) Assessment and Plan: Major Depressive Disorder and Anxiety - making small improvements, has only been on venlafaxine ER 75 mg 3 weeks with the confon prior - also stopped quetiapine during the [...] and make further adjustments if necessary 09/28/2024 Vitamin D deficiency, unspecified (ICD-10 - [...] medication efficacy, and explore further options 04/01/2025 Family conflict (ICD-10 - Z63.8) 12/28/2024 Primary insomnia (ICD-10 - F51.01) Anxiety/ [...] sleep apnea (adult) (pediatric) (ICD-10 - G47.33) 11/26/2024 Obstructive sleep apnea (adult) (pediatric) (ICD-10 [...] Vitamin D deficiency, unspecified (ICD-10 - E55.9) 11/26/2024 Vitamin D deficiency, unspecified (ICD-10 - [...] and make further adjustments if necessary 12/28/2024 Obstructive sleep apnea (adult) (pediatric) (ICD-10 [...] improvements and make further adjustments if necessary 04/01/2025 Encounter for screening for cardiovascular disorders (ICD-10 - Z13.6) 10/28/2024 Obstructive sleep apnea (adult) (pediatric) (ICD-10 [...] dose and make further adjustments if necessary 07/14/2024 Obstructive sleep apnea (adult) (pediatric) (ICD-10 [...] medication efficacy, and explore further options 08/17/2024 Obstructive sleep apnea (adult) (pediatric) (ICD-10 - G47.33) uses CPAP 02/22/2025 Vitamin D deficiency, unspecified (ICD-10 - E55.9) 02/22/2025 Major depressive disorder, recurrent, moderate (ICD-10 - F33.1) 02/22/2025 Stress due to family tension (ICD-10 - Z63.8) 07/14/2024 Vitamin D deficiency, unspecified (ICD-10 - E55.9) hx; PCP manages supplement 08/17/2024 Vitamin D deficiency, unspecified (ICD-10 - E55.9) hx; PCP manages supplement 10/28/2024 Vitamin D deficiency, unspecified (ICD-10 - [...] dose and make further adjustments if necessary 04/01/2025 Encounter for screening for depression (ICD-10 - Z13.31) 01/24/2025 Encounter for screening for depression (ICD-10 - Z13.31) 12/28/2024 Vitamin D deficiency, unspecified (ICD-10 - [...] improvements and make further adjustments if necessary 02/22/2025 Encounter for screening for depression (ICD-10 - Z13.31) 02/22/2025 Encounter for screening for cardiovascular disorders (ICD-10 - Z13.6) 09/28/2024 Other referral to the local chapter or national office of the Alzheimer's Association (6-685-854-39 00; http://www.al z.org), the Alzheimer's Disease Education and Referral Center (ADELA) (7-604-901-43 80; http://www. a.nih.gov/Alz tyroneimers/), Assessment and Plan: - Rebeac has been experiencing side effects and inefficacy [...] thought [facility] than [facility], although she denies active [...] - Monitor for any lightheadedness or dizziness 04/01/2025 Sarahi Shaw, an 79-year-old female with [...] of avoiding straining due to anticoagulation therapy 10/07/2024 Other CancelRx Response got Denied on 2024-11-26 15:18:18 for 'Venlafaxine HCl ER 37.5 MG Tablet Extended Release 24 Hour'Pharmacy Notes: Unable to Cancel Rx. Please contact Pharmacy Plan Of Treatment Next Appt Details Provider Name:Margarita Meraz paulie, 05/30/2025 01:30:00 PM, [address] [facility] [address], [facility] [address], [place], [address], Insurance Providers Payer Name Payer Address Payer Phone Subscriber Number Group Number Insured Name Patient Relationship to Insured Coverage Start Date Coverage End Date Medicare-I l Medicare [address] [place] [address] [id number] REBECA SHAW Self - patient is the insured [facility] [address] [place] [address] [id number] REBECA SHAW Self - patient is the insured Medical (General) History Medical History History ICD Code Past Psychiatric History: Anxiety Disord er,Major Depressive Episode undefined Obesity Obstructive sleep apnea syndrome Primary insomnia Vitamin D deficiency atrial fibrillation Benign essential HTN I10 Surgical History Surgery Date(Month/Year) Cataract surgery (77061) Appendectomy (24000) Tonsilectomy/adenoids 11/03/1953 Hysterectomy (57770) 11/03/1989 Breast surgery (32562) 11/03/2000 Removal of gallbladder (77178) 4 Hospitalization History Reason Date(Month/Year) surgeries
--- OUTSIDE RECORDS SUMMARY | 2025-05-20 21:25 | XMS_ITS ---
Author Name Auto Generated, Auto Generated Organization [employer] [facility] ices Address [address] [place] [address] Phone [phone] Care Team Providers Care Capacity Planning Analyst Name Role Phone Tanner Edwards [phone] Functional Status No Results Mental Status No [...] senna 8.6 mg tablet 8.6mg TABLET Oral ND N Every 12 Hours constipation FriAug 15 17:00:00 EDT 2015Aug 29 01:00:00 EDT 2016 doxycycline hyclate 100 mg capsule 100mg CAPSULE Oral 2 Times Daily for 10 Days infection, PLEASE send Blue capsule per [facility] pharmacy pharmacist due to guest red dye #40 allergy FriAug 16 10:00:00 EDT 2015Aug 26 09:59:00 EDT 2016 Colace 100 mg capsule 100mg CAPSULE Oral PRN Every 12 Hours FriAug 14 22:00:00 EDT 2015Aug 14 21:57:00 EDT 2016 [place] 5 mg-325 mg tablet 1 tab TABLET [...] Xanax 0.5 mg tablet 0.5mg TABLET Oral ND N 2 Times Daily FriAug 14 22:00:00 [...]
--- OUTSIDE RECORDS SUMMARY | 2025-05-20 21:25 | XMS_ITS ---
Author Organization [facility] [employer] [facility] Address [address] [place] [address] [address] Care Team Providers Care Member Service Representative Name Role Phone Juan Manuel Radford MD Primary Care Provider Unavail Margarita Thorne Unavailable [phone] REASON FOR VISIT follow-up Social History Sex Assigned At : Social History Observation Description Sex Assigned At Female Encounters Encounter Location Date Provider Diagnosis [facility] [place] [id number] [facility] [address] [address] 03/29/2025 Margarita Willett Plan Of Treatment Next Appt Details Provider Name:Margarita apodaca, 05/30/2025 01:30:00 PM, [facility] [facility] [address], [facility] [address], [place], [address], Progress Notes * VENR SHAWADOB:1945 (7 0 yo F)Acc No.[id number]:03/29/2025 Patient: REBECA VALE Provider: Yolande Willett :1945 A ge:79 Y S ex:Female Date:03/29/2025 Address[address] [facility] Pcp:Juan Manuel Radford MD Subjective: * Chief Complaints: * 1 . Follow-up. * Medical History: Objective: * Vitals: Assessment: Plan: * Treatment: * Billing Information: * Visit Code: * Procedure Codes: * Electronic signature of Oumar Willett on 05/20/2025 at 09:25 PM CDT Sign off status: Pending * Provider: Yolande Willett Date: 0 03/29/2025 Generated for Arlette farr/Afshan/Rocio on: 0 05/20/2025 09:25 PM CDT
--- OUTSIDE RECORDS SUMMARY | 2025-05-20 21:25 | XMS_ITS ---
Author Name Auto Generated, Auto Generated Organization [facility] ices Address [address] [place] [address] Phone [phone] Care Team Providers Care Optical Manufacturing Technician Name Role Phone Tanner Edwards Functional Status [...] senna 8.6 mg tablet 8.6mg TABLET Oral WA N Every 12 Hours constipation FriAug 15 17:00:00 EDT 2015Aug 29 01:00:00 EDT 2016 doxycycline hyclate 100 mg capsule 100mg CAPSULE Oral 2 Times Daily for 10 Days infection, PLEASE send Blue capsule per [facility] pharmacy pharmacist due to guest red dye #40 allergy FriAug 16 10:00:00 EDT 2015Aug 26 09:59:00 EDT 2016 Colace 100 mg capsule 100mg CAPSULE Oral PRN Every 12 Hours FriAug 14 22:00:00 EDT 2015Aug 14 21:57:00 EDT 2016 [place] 5 mg-325 mg tablet 1 tab TABLET [...] Xanax 0.5 mg tablet 0.5mg TABLET Oral WA N 2 Times Daily FriAug 14 22:00:00 [...]
--- OUTSIDE RECORDS SUMMARY | 2025-05-20 21:25 | XMS_ITS | Clinical Summary ---
Author Organization [facility] Address [address] [place] [address] Care Team Providers Care Coal Sampler Name Role Phone Tanner Edwards MD Primary Care Provider [phone] Social History Tobacco Use Types Packs/Day Years Used Date Smoking Tobacco: Never Assessed Comments Unknown Sex and Gender Information Value Date Recorded Sex Assigned at Not on file Legal Sex Female 10:32 AM CDT Gender Identity Not on file Sexual Orientation Not on file Plan of Treatment Health Maintenance Due Date Last Done Comments DTAP/TDAP/TD VACCINES (1 - Tdap) 1963 PNEUMOCOCCAL VACCINE 50+ YEARS (1 of 1 - PCV) 06/05/19 94 ZOSTER VACCINE (1 of 2) 1994 OSTEOPOROSIS SCREENING 2009 RSV VACCINE (60+ or ) (1 - 1-dose 75+ series) 2019 INFLUENZA VACCINE (#1) 2025 Insurance MEDICARE PART A AND B [facility] [place] [address] Care Teams Coal Sampler Relationship Specialty Start Date End Date Tanner Edwards MD PCP - General Family Practice 08/28/16
--- OUTSIDE RECORDS SUMMARY | 2025-05-20 21:25 | XMS_ITS | Clinical Summary ---
Author Organization [facility] Address [address] [place] [address] Care Team Providers Care Residential Sales Manager Name Role Phone Juan Manuel Radford MD Primary Care Provider [phone] Social History Tobacco Use Types Packs/Day Years Used Date Smoking Tobacco: Never Assessed Comments Unknown Sex and Gender Information Value Date Recorded Sex Assigned at Not on file Legal Sex Female 9:22 PM CDT Gender Identity Not on file Sexual Orientation Not on file Plan of Treatment Health Maintenance Due Date Last Done Comments Pneumococcal Vaccine: 50+ Years (1 of 1 - PCV) 1994 Annual Medicare Wellness Visit 2009 Dexa Scan (General) 2009 RSV Immunization or 60+ Years (1 - 1-dose 75+ series) 2019 COVID-19 Vaccine (2023-2 5 season) 2024 08/08/2021, 12/29/2020, 12/08/2020 DTaP, Tdap and Td Vaccines ( 2 - Td or Tdap) 04/06/2027 04/06/2017 Zoster Vaccines Completed 04/25/2021, 02/16/2021 Meningococcal B Vaccine Aged Out No l onger eligible based on patient's age to complete this topic Meningococcal Vaccine Aged Out No yarelis marielos eligible based on patient's age to complete this topic RSV Immunizations Under 20 Months Aged Out No longer eligible b ased on patient's age to complete this topic Insurance [facility]ICARE 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
--- OUTSIDE RECORDS SUMMARY | 2025-05-20 21:25 | XMS_ITS ---
Author Organization [facility] [employer] Address [address] [place] [address] Care Team Providers Care Chiropractic Assistant Name Role Phone Juan Manuel Radford MD Primary Care Provider Unavail able Margarita Willett Unavailable [phone] REASON FOR VISIT 1 month f/u Medications [...] Active Xiidra 5 % Ophthalmic 02/13/2024 Active Eliquis 5 MG Oral 02/13/2024 Active Benazepril-hydroCHLOR Othiazide 10-12.5 MG Oral 02/13/2024 Active Metoprolol Tartrate 25 MG Oral 02/13/2024 Active Dorzolamide HCl-Timolol Mal 22.3-6.8 MG/ML Ophthalmic 02/13/2024 Active Fluticasone Propionate Diskus 50 MCG/ACT Inhalation *Reorder from [employer] for eRx and Interaction Alerts* 02/13/2024 Active Rosuvastatin Calcium 10 MG Oral 02/13/2024 Active Ketoconazole 2% External 02/13/2024 Act fabián Social History Sex Assigned At : Social History Observation Description Sex Assigned At Female Encounters Encounter Location Date Provider Diagnosis [facility] [address] [facility] [address] [place] [address] 04/29/2025 Margarita Willett Plan Of Treatment Next Appt Details Provider Name:Margarita apodaca, 05/30/2025 01:30:00 PM, [address], [facility] [address], [place], [address], Progress Notes * VERN SHAWADOB:1945 ([age] yo F)Acc No.[id number]:04/29/2025 Patient: REBECA VALE Provider: Yolande Willett :1945 A ge:79 Y S ex:Female Date:04/29/2025 Address:[address] [place] [address] , [facility] Pcp:Juan Manuel Radford MD Subjective: * Chief Complaints: * 1 . 1 month f/u. * Medical History: * Medications: T aking Xiidra 5 % Solution Ophthalmic , Taking Ketoconazole 2% Cream External , Taking Benazepril-hydroCHLOROthiazide 10-12.5 MG Tablet Oral , Taking Metoprolol Tartrate 25 MG Tablet Oral , Taking Dorzolamide HCl-Timolol Mal 22.3-6.8 MG/ML Solution Ophthalmic , Taking Fluticasone Propionate Diskus 50 MCG/ACT Aerosol Powder Breath Activated Inhalation , Notes to Pharmacist: *Reorder from [facility] for eRx and Interaction Alerts*, Taking Rosuvastatin Calcium 10 MG Tablet Oral , Taking Eliquis 5 MG Tablet Oral , Taking hydrOXYzine HCl 50 MG Tablet 1 tablet at bedtime Oral Once a day As needed, Taking Venlafaxine HCl ER 150 MG Capsule Extended Release 24 Hour 1 capsule every morning Oral Once a day , Taking buPROPion HCl ER (XL) 300 MG Tablet Extended Release 24 Hour 1 tablet in the morning Orally Once a day Objective: * Vitals: Assessment: Plan: * Treatment: * Billing Information: * Visit Code: * Procedure Codes: * Electronic signature of Oumar Willett on 05/20/2025 at 09:25 PM CDT Sign off status: Pending * Provider: Yolande Willett Date: 0 04/29/2025 Generated for Arlette frar/Afshan/Rocio on: 0 05/20/2025 09:25 PM CDT
[2025-05-20 21:41] VITALS: BP 130/66; PULSE 79; RESP 16; TEMP 36.4; O2SAT 98
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
[2025-05-21] MEDS: TETANUS,DIPHTHERIA,AC PERTUSSIS ADULT (0.5 ML) BOOSTRIX IM (01:17)
[2025-05-21 01:20] VITALS: BP 154/86; PULSE 83; RESP 16; TEMP 36.6; O2SAT 97
[2025-05-21 01:22] LABS: Hematocrit 41.9 % (37.0-47.0); Hemoglobin 14.3 g/dL (12.0-15.0); Immature Granulocyte Percent A 0.2 % (0-0.5); Lymphocytes Absolute Auto 2.38 K/mm3 (0.9-3.2); Mean Corpuscular HGB Conc 34.1 g/dl (32-36); Mean Corpuscular Hemoglobin 32.3 pg (26-34); Mean Corpuscular Volume 94.6 fl (80-100); Nucleated Red Blood Cells Absolute Auto 0.000 K/mm3 (0.0-0.012); Nucleated Red Blood Cells Perc 0.0 % (0.0-0.2); Platelet Count Result 250 k/mm3 (150-375); Red Blood Count 4.43 M/mm3 (4.2-5.4); White Blood Count 10.1 K/mm3 (4.5-10.0)
[2025-05-21 01:29] LABS: Add Urine Microscopic? YES; Appearance Urine Cloudy (Clear); Glucose Urine UA Negative (Negative); Leukocyte Esterase Ur 3+ LEU/UL (Negative); Nitrate Urine Negative (Negative); Non Pathogenic Casts 0-2; Specific Grav Ur 1.010 (1.001-1.035)
[2025-05-21 01:32] LABS: INR 1.2; Prothrombin Time 14.9 Seconds (11.1-14.7)
[2025-05-21 01:33] LABS: Partial Thromboplastin Time 31.9 Seconds (22.3-36.8)
--- OUTSIDE RECORDS SUMMARY | 2025-05-21 01:35 | XMS_ITS | Clinical Summary ---
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
--- OUTSIDE RECORDS SUMMARY | 2025-05-21 01:35 | XMS_ITS ---
Author Organization [facility] Address [address] [place] [address] [address] Care Team Providers Care Automatic Glove Turner And Former Name Role Phone Juan Manuel Radford MD Primary Care Provider Unavail Margarita Thorne Unavailable [phone] REASON FOR VISIT follow-up Social History Sex Assigned At : Social History Observation Description Sex Assigned At Female Encounters Encounter Location Date Provider Diagnosis [facility] [place] [id number] [facility] [address] [address] 03/29/2025 Margarita Willett Plan Of Treatment Next Appt Details Provider Name:Margarita apodaca, 05/30/2025 01:30:00 PM, [facility] [address], [facility] [address], [place], [address], Progress Notes * VERN SHAWADOB:1945 (7 0 yo F)Acc No.[id number]:03/29/2025 Patient: REBECA VALE Provider: Yolande Willett :1945 A ge:79 Y S ex:Female Date:03/29/2025 Address:[address] [facility] Pcp:Juan Manuel Radford MD Subjective: * Chief Complaints: * 1 . Follow-up. * Medical History: Objective: * Vitals: Assessment: Plan: * Treatment: * Billing Information: * Visit Code: * Procedure Codes: * Electronic signature of Oumar Willett on 05/21/2025 at 01:35 AM CDT Sign off status: Pending * Provider: Yolande Willett Date: 0 03/29/2025 Generated for Arlette farr/Afshan/Rocio on: 0 05/21/2025 01:35 AM CDT
--- OUTSIDE RECORDS SUMMARY | 2025-05-21 01:35 | XMS_ITS ---
Author Name Auto Generated, Auto Generated Organization [facility] Address [address] [place] [address] Phone [phone] Care Team Providers Care Motorsports Technician Name Role Phone Tanner Edwards [phone] Functional Status No Results Mental Status No [...] senna 8.6 mg tablet 8.6mg TABLET Oral MT N Every 12 Hours constipation FriAug 15 17:00:00 EDT 2015Aug 29 01:00:00 EDT 2016 doxycycline hyclate 100 mg capsule 100mg CAPSULE Oral 2 Times Daily for 10 Days infection, PLEASE send Blue capsule per [facility] pharmacist due to guest red dye #40 allergy FriAug 16 10:00:00 EDT 2015Aug 26 09:59:00 EDT 2016 Colace 100 mg capsule 100mg CAPSULE Oral PRN Every 12 Hours FriAug 14 22:00:00 EDT 2015Aug 14 21:57:00 EDT 2016 [place] 5 mg-325 mg tablet 1 tab TABLET [...] Xanax 0.5 mg tablet 0.5mg TABLET Oral MT N 2 Times Daily FriAug 14 22:00:00 [...]
--- OUTSIDE RECORDS SUMMARY | 2025-05-21 01:36 | XMS_ITS | Patient Health Record ---
Author Organization [facility] Address [address] [place] [address] Care Team Providers Care Master Cosmetologist Name Role Phone Juan Manuel Radford MD Primary Care Provider Unavail able Margarita Willett Unavailable [phone] Livia Bowman Unavailable [phone] Allergies Allergen (clinical drug ingredient) Drug/Non Drug [...] Propionate Diskus 50 MCG/ACT Inhalation *Reorder from [employer] for eRx and Interaction Alerts* 02/13/2024 Active [...] Status Risk Notes Problem Vitamin D deficiency (37303872) Vitamin D deficiency, unspecified (E55.9) 4 Active confirmed Problem Mild recurrent major depression (09434604) Major depressive disorder, recurrent, mild (F33.0) Active confirmed Problem Moderate recurrent major depression (79748012) Major depressive disorder, recurrent, moderate (F33.1) Active confirmed Problem Generalized anxiety disorder (27769256) Generalized anxiety disorder (F41.1) 4 Active confirmed Problem Primary insomnia (2794664) Primary insomnia (F51.01) 4 Active confirmed Problem Obstructive sleep apnea syndrome (disorder) (23912500) Obstructive sleep apnea (adult) (pediatric) (G47.33) 4 Active confirmed Problem Family conflict (48735848) Family conflict (Z63.8) Active confirmed Vital Signs Heart Rate 67 /min 04/01/2025 Blood pressure diastolic 76 mm Hg 04/01/2025 Height-cm 147.32 cm 04/01/2025 Weight-kg 88.91 kg 04/01/2025 Height 58.00 in 04/01/2025 Blood pressure systolic 124 mm Hg 04/01/2025 Weight 196 lbs 04/01/2025 BMI 40.96 kg/m2 04/01/2025 Encounters Encounter Location Date Provider Diagnosis [facility] [place] [address] [facility] [address] [address] 07/14/2024 Livia Bowman Major depressive disorder, recurrent, mild F33.0 ; Generalized anxiety disorder F41.1 ; Primary insomnia F51.01 ; Obstructive sleep apnea (adult) (pediatric) G47.33 and Vitamin D deficiency, unspecified E55.9 [facility] [place] [address] [facility] [address] [address] 08/17/2024 Livia Bowman Major depressive disorder, recurrent, mild F33.0 ; Generalized anxiety disorder F41.1 ; Primary insomnia F51.01 ; Obstructive sleep apnea (adult) (pediatric) G47.33 and Vitamin D deficiency, unspecified E55.9 [facility] [place] [address] [facility] [address] [address] 09/28/2024 Margarita Willett Generalized anxiety disorder F41.1 ; Major depressive disorder, recurrent, mild F33.0 ; Primary insomnia F51.01 ; Vitamin D deficiency, unspecified E55.9 and Obstructive sleep apnea (adult) (pediatric) G47.33 [facility] [place] [address] [facility] [address] [address] 10/28/2024 Margarita Willett Major depressive disorder, recurrent, mild F33.0 ; Generalized anxiety disorder F41.1 ; Primary insomnia F51.01 ; Obstructive sleep apnea (adult) (pediatric) G47.33 and Vitamin D deficiency, unspecified E55.9 [facility] [place] [address] [facility] [address] [address] 11/26/2024 Margarita Willett Major depressive disorder, recurrent, mild F33.0 ; Generalized anxiety disorder F41.1 ; Primary insomnia F51.01 ; Obstructive sleep apnea (adult) (pediatric) G47.33 and Vitamin D deficiency, unspecified E55.9 [facility] [place] [address] [address] 12/28/2024 Margarita Willett Major depressive disorder, recurrent, mild F33.0 ; Generalized anxiety disorder F41.1 ; Primary insomnia F51.01 ; Obstructive sleep apnea (adult) (pediatric) G47.33 and Vitamin D deficiency, unspecified E55.9 [place] [address] [facility] [address] [place] [address] 01/24/2025 Margarita Willett Generalized anxiety disorder F41.1 ; Major depressive disorder, recurrent, moderate F33.1 ; Primary insomnia F51.01 ; Obstructive sleep apnea (adult) (pediatric) G47.33 ; Vitamin D deficiency, unspecified E55.9 and Encounter for screening for depression Z13.31 [place] [address] [facility] [address] [place] [address] 02/22/2025 Margarita Willett Generalized anxiety disorder F41.1 ; Primary insomnia F51.01 ; Obstructive sleep apnea (adult) (pediatric) G47.33 ; Major depressive disorder, recurrent, moderate F33.1 ; Vitamin D deficiency, unspecified E55.9 ; Stress due to family tension Z63.8 ; Encounter for screening for depression Z13.31 and Encounter for screening for cardiovascular disorders Z13.[address] [facility] [address] [place] [address] 04/01/2025 Margarita Willett Generalized anxiety disorder F41.1 ; Major depressive disorder, recurrent, mild F33.0 ; Primary insomnia F51.01 ; Family conflict Z63.8 ; Encounter for screening for cardiovascular disorders Z13.6 and Encounter for screening for depression Z13.31 [place] [address] [address] 06/18/2024 Livia Bowman [facility], [place] [address] [address] 10/06/2024 Margarita Willett [place] [address] [facility] [address] [place] [address] 10/07/2024 Margarita Willett Major depressive disorder, recurrent, mild F33.0 [facility] [place] [address] [facility] [address] [place] [address] 10/18/2024 Margarita Willett [place] [address] [facility] [address] [place] [address] 04/29/2025 Margarita Willett Major depressive disorder, recurrent, mild F33.0 [facility] [place] [address] [facility] [address] [place] [address] 01/24/2025 Margaritamorena Rosendivine [facility] [address] [place] [address] 03/18/2025 Margaritamorena Willett [facility] [address] [place] [address] 03/18/2025 Margaritamorena Rosendivine [facility] [address] [place] [address] 04/01/2025 Margarita Silasdivine Assessments Encounter Date Diagnosis (ICD Code) Assessment Notes Treatment Notes Treatment Clinical Notes Section Notes 10/28/2024 Major depressive disorder, recurrent, mild (ICD-10 [...] and make further adjustments if necessary 02/22/2025 Generalized anxiety disorder (ICD-10 - F41.1) 01/24/2025 Major depressive disorder, recurrent, moderate (ICD-10 - F33.1) 01/24/2025 Generalized anxiety disorder (ICD-10 - F41.1) 12/28/2024 Major depressive disorder, recurrent, mild (ICD-10 [...] improvements and make further adjustments if necessary 10/07/2024 Major depressive disorder, recurrent, mild (ICD-10 - F33.0) 09/28/2024 Major depressive disorder, recurrent, mild (ICD-10 [...] medication efficacy, and explore further options 08/17/2024 Major depressive disorder, recurrent, mild (ICD-10 [...] am leaving the practice after this month 07/14/2024 Major depressive disorder, recurrent, mild (ICD-10 - F33.0) just restarted quetiapine 50mg qhs cont sertraline 200mg daily cont venlafaxine 75mg BID cont therapy restarted quetiapine more trouble sleeping/anxiety with stressors at home cont current meds give quetiapine time for effect, review r/b/se cont therapy for social stressors/coping f/u in 1 month, earlier if concerns 04/29/2025 Major depressive disorder, recurrent, mild (ICD-10 - F33.0) 04/01/2025 Major depressive disorder, recurrent, mild (ICD-10 - F33.0) 04/01/2025 Generalized anxiety disorder (ICD-10 - F41.1) 04/01/2025 Primary insomnia (ICD-10 - F51.01) 07/14/2024 Generalized anxiety disorder (ICD-10 - F41.1) meds, therapy as above 08/17/2024 Generalized anxiety disorder (ICD-10 - F41.1) [...] symptoms, medication efficacy, and explore further options 11/26/2024 Primary insomnia (ICD-10 - F51.01) Anxiety/ [...] and make further adjustments if necessary 12/28/2024 Generalized anxiety disorder (ICD-10 - F41.1) [...] necessary 01/24/2025 Primary insomnia (ICD-10 - F51.01) 02/22/2025 Primary insomnia (ICD-10 - F51.01) 10/28/2024 Generalized anxiety disorder (ICD-10 - F41.1) [...] dose and make further adjustments if necessary 10/28/2024 Primary insomnia (ICD-10 - F51.01) Assessment [...] and make further adjustments if necessary 02/22/2025 Obstructive sleep apnea (adult) (pediatric) (ICD-10 - G47.33) 04/01/2025 Family conflict (ICD-10 - Z63.8) 01/24/2025 Obstructive sleep apnea (adult) (pediatric) (ICD-10 - G47.33) 12/28/2024 Primary insomnia (ICD-10 - F51.01) Anxiety/ [...] improvements and make further adjustments if necessary 09/28/2024 [...] medication efficacy, and explore further options 08/17/2024 Primary insomnia (ICD-10 - F51.01) treat mood/anxiety practice good sleep hygiene 07/14/2024 Primary insomnia (ICD-10 - F51.01) worse with stress, medication helps practice good sleep hygiene 07/14/2024 Obstructive sleep apnea (adult) (pediatric) (ICD-10 - G47.33) uses CPAP 08/17/2024 Obstructive sleep apnea (adult) (pediatric) (ICD-10 [...] medication efficacy, and explore further options 01/24/2025 Vitamin D deficiency, unspecified (ICD-10 - E55.9) 12/28/2024 Obstructive sleep apnea (adult) (pediatric) (ICD-10 [...] and make further adjustments if necessary 02/22/2025 Vitamin D deficiency, unspecified (ICD-10 - E55.9) 02/22/2025 Major depressive disorder, recurrent, moderate (ICD-10 - F33.1) 10/28/2024 Obstructive sleep apnea (adult) (pediatric) (ICD-10 [...] dose and make further adjustments if necessary 01/24/2025 [...] due to family tension (ICD-10 - Z63.8) 08/17/2024 Vitamin D deficiency, unspecified (ICD-10 - E55.9) hx; PCP manages supplement 07/14/2024 Vitamin D deficiency, unspecified (ICD-10 - E55.9) hx; PCP manages supplement 02/22/2025 Encounter for screening for depression (ICD-10 - Z13.31) 02/22/2025 Encounter for screening for cardiovascular disorders (ICD-10 - Z13.6) 09/28/2024 Other referral to the local chapter or national office of the Alzheimer's Association (4-671-037-39 00; http://www.al z.org), the Alzheimer's Disease Education and Referral Center (ADECO) (0-686-935-43 80; http://www. a.nih.gov/Alz tyroneimers/), Assessment and Plan: - Rebeca has been [...] [facility] [place] [facility] [place], although she denies active [...] Name:Margarita Meraz paulie, 05/30/2025 01:30:00 PM, [address], [facility] [address], [place], [address], Insurance Providers Payer Name Payer Address Payer Phone Subscriber Number Group Number Insured Name Patient Relationship to Insured Coverage Start Date Coverage End Date Medicare-I l Medicare [address] [place] [phone] [id number] REBECA SHAW Self - patient is the insured [facility] [address] [place] [address] [id number] REBECA SHAW Self - patient is the insured Medical (General) History Medical History History ICD Code Past Psychiatric History: Anxiety Disord er,Major Depressive Episode undefined Obesity Obstructive sleep apnea syndrome Primary insomnia Vitamin D deficiency atrial fibrillation Benign essential HTN I10 Surgical History Surgery Date(Month/Year) Cataract surgery (79211) Appendectomy (42082) Tonsilectomy/adenoids 11/03/1953 Hysterectomy (28023) 11/03/1989 Breast surgery (03901) 11/03/2000 Removal of gallbladder (24894) 4 Hospitalization History Reason Date(Month/Year) surgeries
--- OUTSIDE RECORDS SUMMARY | 2025-05-21 01:36 | XMS_ITS | Clinical Summary ---
Author Organization [facility] Address [address] [place] [address] Care Team Providers Care Ict Help Desk Technician Name Role Phone Tanner Edwards MD Primary Care Provider [phone] Social History Tobacco Use Types Packs/Day Years [...] 2025 Insurance MEDICARE PART A AND B [facility] [place] [address] Care Teams Ict Help Desk Technician Relationship Specialty Start Date End Date Tanner Edwards MD PCP - General Family Practice 08/28/16
--- OUTSIDE RECORDS SUMMARY | 2025-05-21 01:36 | XMS_ITS ---
Author Organization [facility] [employer] Address [address] [place] [address] Care Team Providers Care Lock Operator Name Role Phone Juan Manuel Radford MD Primary Care Provider Unavail able Margarita Willett Unavailable [phone] REASON FOR VISIT 1 month f/u Medications [...] Propionate Diskus 50 MCG/ACT Inhalation *Reorder from [employer] for eRx and Interaction Alerts* 02/13/2024 Active Rosuvastatin Calcium 10 MG Oral 02/13/2024 Active Ketoconazole 2% External 02/13/2024 Act fabián Social History Sex Assigned At : Social History Observation Description Sex Assigned At Female Encounters Encounter Location Date Provider Diagnosis [facility] [address] [place] [address] 04/29/2025 Margarita Willett Plan Of Treatment Next Appt Details Provider Name:Margarita apodaca, 05/30/2025 01:30:00 PM, [address], [facility] [address], [place], [address], Progress Notes * VERN SHAWADOB:1945 (7 0 yo F)Acc No.[id number]:04/29/2025 Patient: REBECA VALE Provider: Yolande Willett :1945 A ge:79 Y S ex:Female Date:04/29/2025 Address:[address] [place] [address] , [facility] Pcp:Juan Manuel Radford MD Subjective: * [...] Inhalation , Notes to Pharmacist: *Reorder from [facility] for eRx and Interaction Alerts*, Taking [...] signature of Oumar Willett on 05/21/2025 at 01:36 AM CDT Sign off status: Pending * Provider: Yolande Willett Date: 0 04/29/2025 Generated for Arlette farr/Afshan/Rocio on: 0 05/21/2025 01:36 AM CDT
[2025-05-21 01:53] LABS: Alanine Aminotransferase 29 U/L (6-35); Albumin Level 4.2 g/dL (3.5-5.1); Alkaline Phosphatase 52 U/L (38-126); Anion Gap 9 mmol/L (4-12); Aspartate Amino Transferase 36 U/L (14-36); Bilirubin,Total 0.4 mg/dL (0.2-1.3); Blood Urea Nitrogen 22 mg/dL (7-17); Calcium 9.7 mg/dL (8.4-10.2); Carbon Dioxide 25 mmol/L (22-30); Chloride 103 mmol/L (98-107); Estimated Glomerular Filt Rate 57; Glucose 91 mg/dL (65-110); Potassium 3.3 mmol/L (3.4-5.0); Sodium 137 mmol/L (137-145); Total Protein 7.3 g/dL (6.3-8.2)
[2025-05-21] MEDS: POTASSIUM CHLORIDE 20 MEQ ER TABLET 40 MEQ PO (02:21)
[2025-05-21 03:10] VITALS: BP 140/88; PULSE 78; RESP 16; O2SAT 97
--- NOTE | 2025-05-21 03:12 | PC.NURSE ---
Assumed care of patient after receiving bedside report from SETH Gibson @ 2825.
== END 2025-05-21 04:45 | disposition home or self-care (01) ==
PROVIDERS: Emergency Provider Registered Nurse; PCP Emergency Medicine
DX: S01.511A Laceration without foreign body of lip, initial encounter (principal); S00.33XA Contusion of nose, initial encounter; S20.211A Contusion of right front wall of thorax, initial encounter; N39.0 Urinary tract infection, site not specified; Z23 Encounter for immunization; I48.91 Unspecified atrial fibrillation; I10 Essential (primary) hypertension; E55.9 Vitamin D deficiency, unspecified; E78.5 Hyperlipidemia, unspecified; N39.46 Mixed incontinence; M17.11 Unilateral primary osteoarthritis, right knee; M16.11 Unilateral primary osteoarthritis, right hip; F41.9 Anxiety disorder, unspecified; Z96.651 Presence of right artificial knee joint; Z86.718 Personal history of other venous thrombosis and embolism; Z90.710 Acquired absence of both cervix and uterus; Z79.899 Other long term (current) drug therapy; Z79.01 Long term (current) use of anticoagulants; W18.09XA Striking against other object with subsequent fall, initial encounter
CPT/HCPCS: 36415; 70450; 70486; 71045; 72125; 80053; 81001; 85025; 85610; 85730; 90471; 90715; 99284; A9270

== ENCOUNTER 2025-07-15 16:14 | Emergency (ER) | payer MEDICARE, BC, SELFPAY ==
[2025-07-15 16:27] VITALS: BP 100/61; PULSE 68; RESP 18; TEMP 36.7; O2SAT 97
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
[2025-07-15 16:48] LABS: EDUAAPPEAR Cloudy; EDUABILI Negative (Negative); EDUABLOOD 3+ (Negative); EDUACOLOR1 Yellow; EDUAGLUCOSE Negative (Negative); EDUAKETONE Negative (Negative); EDUALEUKO 2+ (Negative); EDUANITRATE Negative (Negative); EDUAPH 8.5; EDUAPROTEIN 3+ (Negative); EDUASPGRAVITY 1.020; EDUAUROBILI 1.0
== END 2025-07-15 17:06 | disposition home or self-care (01) ==
PROVIDERS: Emergency Provider Nurse Practitioner Family; PCP Emergency Medicine
DX: N39.0 Urinary tract infection, site not specified (principal); I10 Essential (primary) hypertension; E78.5 Hyperlipidemia, unspecified; M17.11 Unilateral primary osteoarthritis, right knee; M16.11 Unilateral primary osteoarthritis, right hip; F41.9 Anxiety disorder, unspecified; F32.9 Major depressive disorder, single episode, unspecified; Z86.718 Personal history of other venous thrombosis and embolism; Z96.651 Presence of right artificial knee joint; Z79.01 Long term (current) use of anticoagulants
CPT/HCPCS: 81003; 87086; 99213; G0463

== ENCOUNTER 2025-08-17 14:43 | Outpatient (CLI) | payer MEDICARE, BC, SELFPAY ==
--- OUTSIDE RECORDS SUMMARY | 2010-11-09 19:00 | XMS_ITS | Continuity of Care Document ---
Author Organization [facility] Address [address] [place] [address] Phone Care Team Providers Care Card Lacer Name Role Phone Ezra Butcher MD Unavailable Unavailable Medications Medication Instructions Dosage Effective Dates (start - stop) Status Comments VERAMYST 27.5 MCG NASAL SPRAY 2 QD-daily - Active TWINJECT 0.3 MG AUTO-INJECTOR 0 DIRECTE - Active Please fill with the [facility] [place] FEXOFENADINE HCL 180 MG TABLET 1 QD-daily - Active FEXOFENADINE HCL 180MG TABS 1 QD-daily - No Longer Active VERAMYST 27.5MCG SPRAY(S) 2 QD-daily - No Longer Active TWINJECT 0.3MG/0.3 ML 0 DIRECTE - No Longer Active Please fill with the [place] Advance Directives Directive Yes / No Effective Date File Name No Information Encounters Encounter Description Practice Location Reason(s) For Visit Diagnoses Date Provider Providers Copied on Encounter [facility], [address], [place], [place], [id number], tel:[phone] [facility] No Information Hadley Munguia. [address] [place] [address], [id number] , . tel: [phone] WhoisEDI [facility], [address], [place], [id number], tel:[phone] [facility] TOXIC EFFECT VENOMRHINITIS DUE TO POLLEN [address]. [address] [place] [address], [place], [place], [id number] , [place]. tel: [phone] [facility], [address], [place], [place], [id number], [place] tel:[phone] [facility] URTICARIA NECANGIONEUROTIC EDEMA 7 Hadley Munguia. [address] [address], [place], [place], [id number] , [place]. tel: [phone] Family History Family Member Type Diagnosis Age At Onset No Information Payers Payer name Insurance type Covered democrat ID Authoriza tion(s) No Information Social History Type Description Quantity Date Captured Comments Sex Female Smoking Status No Information Chief Complaint And Reason For Visit No Information Reason For Referral Reason For Referral No Information History Of Present Illness Encounter Date Complaint History Of Prese nt Illness No Information Functional Status Date Functional Assessmen t No Information Medications Administered Medication Instructions Dosage Effective Dates (start - stop) Status Comments FEXOFENADINE HCL 180MG TABS 1 QD-daily - No Longer Active VERAMYST 27.5MCG SPRAY(S) 2 QD-daily - No Longer Active TWINJECT 0.3MG/0.3 ML 0 DIRECTE - No Longer Active Please fill with the [facility] [place] Instructions Date Instruction Additional Infor mation No Information Assessments Type Assessment Date No Information Patient Care Teams Name Effective Dates (start - stop) Status Members No Information
--- OUTSIDE RECORDS SUMMARY | 2025-03-29 09:15 | XMS_ITS ---
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 Name Role Phone Juan Manuel Radford MD Primary Care Provider Unavail Margarita Thorne Unavailable [phone] REASON FOR VISIT follow-up Social History Sex Assigned At : Social History Observation Description Sex Assigned At Female Encounters Encounter Location Date Provider Diagnosis [facility] [place] [id number] [facility] [address] [address] 03/29/2025 Margarita Willett Plan Of Treatment Next Appt Details Provider Name:Margarita apodaca, 08/22/2025 02:30:00 PM, [facility] [facility] [address], [facility] [address], [place], [address], Progress Notes * VERN SHAWADOB:1945 ([age] yo F)Acc No.[id number]:03/29/2025 Patient: Dequan SANDEENOAMREBECA Provider: Yolande Willett :1945 A ge:79 Y S ex:Female Date:03/29/2025 Address:[address] [facility] Pcp:Juan Manuel Radford MD Subjective: * Chief Complaints: * F ollow-up Billing Information: * Procedure Codes: * Electronic signature of Oumar Willett on 08/17/2025 at 04:58 PM CDT Sign off status: Pending * Provider: Yolande Willett Date: 0 03/29/2025 Generated for Arlette farr/Afshan/Rocio on: 1 04:58 PM CDT
--- OUTSIDE RECORDS SUMMARY | 2025-04-29 10:00 | XMS_ITS ---
Author Organization [facility] [employer] Address [address] [place] [address] Care Team Providers Care Clinical Staff Educator Name Role Phone Juan Manuel Radford MD Primary Care Provider Unavail able Margarita Willett Unavailable [phone] REASON FOR VISIT 1 month f/u Medications [...] Aerosol Powder Breath Activated Inhalation *Reorder from [employer] for eRx and Interaction Alerts* 02/13/2024 Active Rosuvastatin Calcium 10 MG Tablet Oral 02/13/2024 Active Ketoconazole 2% Cream External 02/13/2024 Active Social History Sex Assigned At : Social History Observation Description Sex Assigned At Female Encounters En[facility] [address] [place] [address] 04/29/2025 Margarita Willett Plan Of Treatment Next Appt Details Provider Name:Margarita apodaca, 08/22/2025 02:30:00 PM, [address], [address], [place], [address], Progress Notes * FIDENCIOVERNADOB:1945 ([age] yo F)Acc No.[id number]:04/29/2025 Patient: REBECA VALE Provider: Yolande Willett :1945 A ge:79 Y S ex:Female Date:04/29/2025 Address:[address] [place] [address] , [facility] Pcp:Juan Manuel Radford MD Subjective: * Chief Complaints: * 1 month f/u * Medications: T akingXiidra 5 % Solution Ophthalmic Ketoconazole 2% Cream External Benazepril-hydroCHLOROthiazide 10-12.5 MG Tablet Oral Metoprolol Tartrate 25 MG Tablet Oral Dorzolamide HCl-Timolol Mal 22.3-6.8 MG/ML Solution Ophthalmic Fluticasone Propionate Diskus 50 MCG/ACT Aerosol Powder Breath Activated Inhalation , Notes to Pharmacist: *Reorder from [facility] for eRx and Interaction Alerts*Rosuvastatin Calcium 10 [...] Inhalation , Notes to Pharmacist: *Reorder from [employer] for eRx and Interaction Alerts*Taking Rosuvastatin Calcium [...] signature of Oumar Willett on 08/17/2025 at 04:59 PM CDT Sign off status: Pending * Provider: Yolande Willett Date: 0 04/29/2025 Generated for Arlette farr/Afshan/Rocio on: 1 04:59 PM CDT
--- NOTE | ~2025-08-17 | MM_ITS ---
EXAMINATION: MM screening beena BI w brianna HISTORY: Screening TECHNIQUE: Craniocaudal and mediolateral oblique 3-D tomosynthesis images were obtained and synthetic 2-D images were generated. CAD analysis was submitted and interpreted. COMPARISON: 07/07/2024 BREAST PARENCHYMAL COMPOSITION: Not Dense: The breasts are almost entirely fatty. FINDINGS: There is no evidence of suspicious mass, calcification, or architectural distortion to suggest malignancy. There has been no suspicious interval change. IMPRESSION: 1. No mammographic evidence of malignancy. Recommend routine screening mammography in one year. BI-RADS Category 2: Benign finding(s) Reviewed, dictated and finalized at location Q. IMPRESSION: 1. No mammographic evidence of malignancy. Recommend routine screening mammogra phy in one year. BI-RADS Category 2: Benign finding(s)
--- OUTSIDE RECORDS SUMMARY | 2025-08-17 16:58 | XMS_ITS | Encounter Summary ---
Author Organization [facility] Address [address] [facility] [place] [address] Care Team Providers Care Iron Miner Blasting Name Role Phone Juan Manuel Radford MD Primary Care Provider Encounter Details Date Type Department Care Team (Late st Contact Info) Description 08/05/2019 Lab Requisition [facility] DermPath Lab [address] [facility], [facility] [place] [address] Laura Esteban DO [address] [facility] 3 [place] [address] Social History Tobacco Use Types Packs/Day Years Used Date Smoking Tobacco: Never Assessed Comments Unknown Sex and Gender Information Value Date Recorded Sex Assigned at Not on file Legal Sex Female 10:46 AM CDT Gender Identity Not on file Sexual Orientation Not on file documented as of this encounter Plan of Treatment Not on file documented as of this encounter Procedures Procedure Name Priority Date/Time Associated Diagnosis Comments DERMATOPATHOLOGY Routine 08/04/2019 12:0 0 AM CDT documented in this encounter Results * DERMATOPATHOLOGY (08/04/2019 12:00 AM CDT) Case Report Dermatopathology Report Case: [id number] Authorizing Provider: Laura Esteban DO Collected: 08/04/2019 12:00 AM Ordering Location: [facility] DermPath Lab Received: 08/05/2019 12:39 PM Pathologist: Mariposa Aceves MD Specimen: Skin, left FA 9 3:51 PM CDT DERMATOPATHOLOGY LABORATORY Final Diagnosis Specimen A. SKIN, left FA: URTICARIA, CONSISTENT WITH (L50.9) 9 3:51 PM CDT DERMATOPATHOLOGY LABORATORY at 1551 CDT Clinical History [place] pruritic papules/plaques recurrent kwame FA. PMLE vs CTD vs ACD. 3:51 PM CDT DERMATOPATHOLOGY LABORATORY Gross Description Specimen A: Received is one formalin filled container labeled with the patient's name and designated left FA. The specimen consists of a punch measuring [id number], bisected. Jar 0. 3:51 PM CDT DERMATOPATHOLOGY LABORATORY Microscopic Description Specimen A. SKIN, left FA: A sparse perivascular and interstitial mixed infiltrate composed of lymphocytes, eosinophils, and neutrophils is present within the dermis. There is associated dermal edema. 3:51 PM CDT DERMATOPATHOLOGY LABORATORY Disclaimer An external and internal positive and negative controls are appropriate for the histochemical, immunohistochemical and immunofluorescence stain(s) in this case (if any), except where stated explicitly. The performance characteristics of the stain(s) cited in this report were developed and its performance characteristic determined by the Dermatopathology Laboratory at [facility], directed by Dr. Kourtney Aceves. These tests need not be, and therefore are not, approved by the [place] Food and Drug Administration. The tests are used for clinical purposes. Billing Codes Specimen Charges Stain Charges 18237 1 3:51 PM CDT DERMATOPATHOLOGY LABORATORY Embedded Images 3:51 PM CDT DERMATOPATHOLOGY LABORATORY Pathology/Cytolog y TISSUE SPECIMEN FROM SKIN / Unknown 08/04/2019 08/05/2019 12:39 PM CDT Laura Esteban DO LAB - PATHOLOGY/CYTOLOGY ORDERABLES Final Result DERMATOPATHOLOGY LABORATORY [facility] - Department of Dermatology [address] [place] [address], 5th [place] [address], [facility] [phone] documented in this encounter Visit Diagnoses Not on filedocumented in this encounter Care Teams Iron Miner Blasting Relationship Specialty Start Date End Date Juan Manuel Radford MD [address] [facility] [address] [place] [address] PCP - General 06/02/19 documented as of this encounter
--- OUTSIDE RECORDS SUMMARY | 2025-08-17 16:58 | XMS_ITS | Clinical Summary ---
Author Organization [facility] Address [address] [place] [address] Care Team Providers Care Hand Rigger Name Role Phone Juan Manuel Radofrd MD Primary Care Provider [phone] Social History Tobacco Use Types Packs/Day Years [...] - 1-dose 75+ series) 2019 COVID-19 Vaccine ( season) 2025 08/08/2021, 12/29/2020, 12/08/2020 Influenza Adult (#1) 2025 08/19/2017, 08/17/2015, 08/17/2014, Additional history exists DTaP, Tdap and Td Vaccines (2 - Td or Tdap) 04/06/2027 04/06/2017 Zoster Vaccines Completed 04/25/2021, 02/16/2021 Hepatitis A Vaccines Aged Out No long er eligible based on patient's age to complete this topic Meningococcal B Vaccine Aged Out No l onger eligible based on patient's age to complete this topic Meningococcal Vaccine Aged Out No yarelis marielos eligible based on patient's age to complete this topic RSV Immunizations Under 20 Months Aged Out No longer eligible based on patient's age to complete this topic Insurance MEDICARE [facility] Advance Directives Documents on File Type Date Recorded Patient Clinical Practitioner Expl anation Advance Directives and Livin g Will 05/17/2016 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
--- OUTSIDE RECORDS SUMMARY | 2025-08-17 16:58 | XMS_ITS | Encounter Summary ---
Author Organization [facility] Address [address] [facility] [place] [address] Care Team Providers Care Project Management It Specialist Name Role Phone Juan Manuel Radford MD Primary Care Provider [phone] Encounter Details Date Type Department Care Team (Late st Contact Info) Description 02/24/2024 Lab Requisition [facility] - DermPath Lab [address] [facility], [facility] [place] [address] Laura Esteban DO [address] [facility] 3 [place] [address] Social History Tobacco Use Types Packs/Day Years [...] Priority Date/Time Associated Diagnosis Comments DERMATOPATHOLOGY Routine 02/24/2024 10:1 9 AM CDT documented in this encounter Results * DERMATOPATHOLOGY (02/24/2024 10:19 AM CDT) Case Report Dermatopathology Report Case: [id number] Authorizing Provider: Laura Esteban DO Collected: 02/24/2024 10:19 AM Ordering Location: [facility] - Received: 02/25/2024 01:49 PM DermPath Lab Pathologist: Jane De La O MD Specimen: Skin, left cheek 1:39 PM CDT DERMATOPATHOLOGY LABORATORY Final Diagnosis Specimen A. SKIN, left cheek: ACTINIC KERATOSIS, ACANTHOLYTIC TYPE (L57.0) 1:39 PM CDT DERMATOPATHOLOGY LABORATORY at 1339 CDT Clinical History R/o NMSC 1:39 PM CDT DERMATOPATHOLOGY LABORATORY Gross Description Specimen A: Received is one formalin filled container labeled with the patient's name and designated left cheek. The specimen consists of a shave biopsy measuring 6x4x1 mm. Jar 0. 1:39 PM CDT DERMATOPATHOLOGY LABORATORY Microscopic Description Specimen A. SKIN, left cheek: There is focal parakeratosis. The lower half of the epidermis shows disorderly maturation of keratinocytes with nuclear pleomorphism. Focally there is a suprabasilar cleft with acantholytic cells. 1:39 PM CDT DERMATOPATHOLOGY LABORATORY Disclaimer An external and internal positive and negative controls are appropriate for the histochemical, immunohistochemical and immunofluorescence stain(s) in this case (if any), except where stated explicitly. The performance characteristics of the stain(s) cited in this report were developed and its performance characteristic determined by the Dermatopathology Laboratory at [facility], directed by Dr. Kourtney Aceves. These tests need not be, and therefore are not, approved by the [place] Food and Drug Administration. The tests are used for clinical purposes. Billing Codes Specimen Charges Stain Charges 44251 1 1:39 PM CDT DERMATOPATHOLOGY LABORATORY Embedded Images 1:39 PM CDT DERMATOPATHOLOGY LABORATORY Pathology/Cytolo gy TISSUE SPECIMEN FROM SKIN / Unknown 02/24/2024 10:19 AM CDT 02/25/2024 1:49 PM CDT us Laura Esteban DO LAB - PATHOLOGY/CYTOLOGY ORDERABLES Final Result DERMATOPATHOLOGY LABORATORY [facility] - Department of Dermatology [facility] [address] [place] [address], [address] [phone] documented in this encounter Visit Diagnoses Not on filedocumented in this encounter Care Teams Project Management It Specialist Relationship Specialty Start Date End Date Juan Manuel Radford MD [address] [place] [address] 2 [place] [id number] PCP - General 06/02/19 documented as of this encounter
--- OUTSIDE RECORDS SUMMARY | 2025-08-17 16:58 | XMS_ITS | Encounter Summary ---
Author Organization [facility] Address [address] [place] [address] Care Team Providers Care Hub Cutter Name Role Phone Juan Manuel Radford MD Primary Care Provider Encounter Details Date Type Department Care Team (Late st Contact Info) Description 08/19/2024 Lab Requisition [facility] - DermPath Lab [address] [facility], [facility] [place] [address] Laura Esteban DO [address] [facility] 3 [place] [address] Social History Tobacco Use Types Packs/Day Years [...] Priority Date/Time Associated Diagnosis Comments DERMATOPATHOLOGY Routine 08/19/2024 11:1 5 AM CDT documented in this encounter Results * DERMATOPATHOLOGY (08/19/2024 11:15 AM CDT) Case Report Dermatopathology Report Case: [id number] Authorizing Provider: Laura Esteban DO Collected: 08/19/2024 11:15 AM Ordering Location: [facility] - Received: 08/19/2024 03:21 PM DermPath Lab Pathologist: Toyin Portillo MD Specimen: Skin, right cheek 12:28 PM CDT DERMATOPATHOLOGY LABORATORY Final Diagnosis Specimen A. SKIN, right cheek: SOLAR LENTIGO (L81.4) (see microscopic description) 12:28 PM CDT DERMATOPATHOLOGY LABORATORY at 1228 CDT Clinical History Lentigo r/o atypia 12:28 PM CDT DERMATOPATHOLOGY LABORATORY Gross Description Specimen A: Received is one formalin filled container labeled with the patient's name and designated right cheek. The specimen consists of a shave biopsy measuring 8x4x1 mm. Jar 0. 12:28 PM CDT DERMATOPATHOLOGY LABORATORY Microscopic Description Specimen A. SKIN, right cheek: There is orthokeratosis. There is a slight increase in epidermal thickness with lentiginous buds of hyperpigmented keratinocytes. The number of melanocytes, highlighted by MART-1/Melan-A immunohistochemical staining, is only mildly increased. In the dermis, there is basophilic degeneration of elastic fibers. 12:28 PM CDT DERMATOPATHOLOGY LABORATORY Disclaimer An external and internal positive and negative controls are appropriate for the histochemical, immunohistochemical and immunofluorescence stain(s) in this case (if any), except where stated explicitly. The performance characteristics of the stain(s) cited in this report were developed and its performance characteristic determined by the Dermatopathology Laboratory at [facility], directed by Dr. Kourtney Aceves. These tests need not be, and therefore are not, approved by the [place] Food and Drug Administration. The tests are used for clinical purposes. Billing Codes Specimen Charges Stain Charges 23579 1 89246 1 12:28 PM CDT DERMATOPATHOLOGY LABORATORY Embedded Images 12:28 PM CDT DERMATOPATHOLOGY LABORATORY Pathology/Cytolo gy TISSUE SPECIMEN FROM SKIN / Unknown 08/19/2024 11:15 AM CDT 08/19/2024 3:21 PM CDT us Laura Esteban DO LAB - PATHOLOGY/CYTOLOGY ORDERABLES Final Result DERMATOPATHOLOGY LABORATORY [facility] - Department of Dermatology [facility] Medicine [address] [place] [address], 3rd [place] [address], [facility] [phone] documented in this encounter Visit Diagnoses Not on filedocumented in this encounter Care Teams Hub Cutter Relationship Specialty Start Date End Date Juan Manuel Radford MD [address] [employer] [facility] 2 [place] [address] PCP - General 06/02/19 documented as of this encounter
--- OUTSIDE RECORDS SUMMARY | 2025-08-17 16:58 | XMS_ITS | Clinical Summary ---
Author Organization [facility] Address [address] [place] [id number] Care Team Providers Care Practice Business Asst Name Role Phone Juan Manuel Radford MD Primary Care Provide r Allergies No known active allergies Medications No known medications Active Problems No known active problems Social History Tobacco Use Types Packs/Day Years Used Date Smoking Tobacco: Never Assessed Comments Unknown Sex and Gender Information Value Date Recorded Sex Assigned at Not on file Legal Sex Female 2:25 AM COREMAKER APPRENTICE Gender Identity Not on file Sexual Orientation Not on file Obstetrics History Last Filed Vital Signs Vital Sign Reading Time Taken Comments Blood Pressure 124/76 10/04/2021 2:53 PM COREMAKER APPRENTICE Pulse 78 10/04/2021 2:53 PM COREMAKER APPRENTICE Temperature - - Respiratory Rate - - Oxygen Saturation 96% 10/04/2021 2:53 PM COREMAKER APPRENTICE Inhaled Oxygen Concentration - - Weight - - Height - - Body Mass Index - - Plan of Treatment Not on file Insurance MEDICARE [facility] Immy CHOICE MEDICARE [place] Care Teams Practice Business Asst Relationship Specialty Start Date End Date Juan Manuel Radford MD [address] [place] [address] PCP - General 07/29/14
--- OUTSIDE RECORDS SUMMARY | 2025-08-17 16:58 | XMS_ITS | Clinical Summary ---
Author Organization [facility] Address [address] [place] [address] Care Team Providers Care Assembly Line Driver Name Role Phone Juan Manuel Radford MD Primary Care Provider Source Comments [facility],non-owned Affiliates and Associated Physician Practices is amultiple site organization consisting of ambulatory clinics and hospital sitesin [place] and [place]. This disclosure is being madepursuant to the Care Everywhere program and may not contain all information available regarding this patient. Last updated 18.[facility] [employer] Social History Tobacco Use Types Packs/Day Years Used Date Smoking Tobacco: Never Assessed Comments Unknown Sex and Gender Information Value Date Recorded Sex Assigned at Not on file Legal Sex Female 10:46 AM CDT Gender Identity Not on file Sexual Orientation Not on file Plan of Treatment Health Maintenance Due Date Last Done Comments BONE DENSITY TESTING 1945 MEDICARE AWV 12 MONTHS 1945 DTAP/TDAP/TD VACCINES (1 - Tdap) 1963 PNEUMOCOCCAL VACCINE 50+ (1 of 1 - PCV) 1994 ZOSTER VACCINE (1 of 2) 1994 Respiratory Syncytial Virus (RSV) Vaccine Pt: or over 60 yrs (1 - 1-dose 75+ series) 2019 DEPRESSION SCREENING 11/03/2024 COVID-19 VACCINE ( - 2023-2 5 season) 2025 INFLUENZA VACCINE (#1) 2025 HEPATITIS B VACCINE Aged Out No longe r eligible based on patient's age to complete this topic HIB VACCINE Aged Out No longer eligi ble based on patient's age to complete this topic HPV VACCINE Aged Out No longer eligi ble based on patient's age to complete this topic MENINGOCOCCAL (Group B) VACC INE SHARED DECISION-MAKING Aged Out No longer eligibl e based on patient's age to complete this topic MENINGOCOCCAL GROUPS A/C/Y/W VACCINE Aged Out No longer eligible b ased on patient's age to complete this topic Insurance MEDICARE [facility] MEDICARE [facility] Care Teams Assembly Line Driver Relationship Specialty Start Date End Date Juan Manuel Radford MD [address] [place] [address] 2 [place] [address] PCP - General 06/02/19
--- OUTSIDE RECORDS SUMMARY | 2025-08-17 16:58 | XMS_ITS | Encounter Summary ---
Author Organization [facility] Address [address] [facility] [place] [address] Care Team Providers Care El Teacher Name Role Phone Juan Manuel Radford MD Primary Care Provider Encounter Details Date Type Department Care Team (Late st Contact Info) Description 06/03/2019 Lab Requisition [facility] Care DermPath Lab [address] [facility], [place] [address] Laura Esteban DO [address] [facility] 3 [place] [address] Social History Tobacco Use Types Packs/Day Years [...] Priority Date/Time Associated Diagnosis Comments DERMATOPATHOLOGY Routine 06/02/2019 12:0 0 AM CDT documented in this encounter Results * DERMATOPATHOLOGY (06/02/2019 12:00 AM CDT) Case Report Dermatopathology Report Case: [id number] Authorizing Provider: Laura Esteban DO Collected: 06/02/2019 12:00 AM Pathologist: Mariposa Aceves MD Received: 06/03/2019 05:39 AM Specimen: Skin, left hand 9 9:09 AM CDT DERMATOPATHOLOGY LABORATORY Final Diagnosis Specimen A. 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 Hx PMLE. HAK vs SCC vs PMLE. 9:09 AM CDT DERMATOPATHOLOGY LABORATORY Gross Description Specimen A: Received is one formalin filled container labeled with the patient's name and designated left hand. The specimen consists of a shave measuring 19p7b4kg. Jar 0. 9 9:09 AM CDT DERMATOPATHOLOGY LABORATORY Microscopic Description Specimen A. SKIN, left hand: The epidermis shows parakeratosis, full thickness disorderly maturation of keratinocytes, mitoses at different levels, and dyskeratotic cells. 9 9:09 AM CDT DERMATOPATHOLOGY LABORATORY Disclaimer An external and internal positive and negative controls are appropriate for the histochemical, immunohistochemical and immunofluorescence stain(s) in this case (if any), except where stated explicitly. The performance characteristics of the stain(s) cited in this report were developed and its performance characteristic determined by the Dermatopathology Laboratory at [facility], directed by Dr. Kourtney Aceves. These tests need not be, and therefore are not, approved by the [place] Food and Drug Administration. The tests are used for clinical purposes. Billing Codes Specimen Charges Stain Charges 10451 1 9 9:09 AM CDT DERMATOPATHOLOGY LABORATORY Embedded Images 9:09 AM CDT DERMATOPATHOLOGY LABORATORY Pathology/Cytolog y TISSUE SPECIMEN FROM SKIN / Unknown 06/02/2019 06/03/2019 5:39 AM CDT Laura Esteban DO LAB - PATHOLOGY/CYTOLOGY ORDERABLES Final Result DERMATOPATHOLOGY LABORATORY [facility] - Department of Dermatology [address] [place] [address], 5th [place] [address], [facility] [phone] documented in this encounter Visit Diagnoses Not on filedocumented in this encounter Care Teams El Teacher Relationship Specialty Start Date End Date Juan Manuel Radford MD [address] [email or web address] [place] [address] PCP - General 06/02/19 documented as of this encounter
--- OUTSIDE RECORDS SUMMARY | 2025-08-17 16:59 | XMS_ITS | Patient Health Record ---
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 Name Role Phone Juan Manuel Radford MD Primary Care Provider Unavail able Margarita Willett Unavailable [phone] Livia Bowman Unavailable [phone] Allergies Allergen (clinical drug ingredient) Drug/Non Drug Allergy documented on EMR Reaction Allergy Type Onset Date Status FD AND C RED NO.40 (uncoded) Unknown Allergy 01/15/2024 Active RAGWEED POLLEN (uncoded) Unknown Allergy 01/15/2024 Active Tree pollen TREE POLLEN (uncoded) Unknown Allergy 2023 Active Reason For Referral No Information Medications Medication SIG (Take, Route, Frequency, Duration) Notes Start Date End Date Status buPROPion HCl ER (XL) 300 MG Tablet Extended Release 24 Hour 1 tablet in the morning Orally Once a day; Duration: 30 days Active Xiidra 5 % Solution Ophthalmic 02/13/2024 Active Venlafaxine HCl ER 150 MG Capsule Extended Release 24 Hour 1 capsule every morning Oral Once a day; Duration: 30 days 06/27/2025 Active Ketoconazole 2% Cream External 02/13/2024 Active hydrOXYzine HCl 50 MG Tablet 1 tablet at bedtime Oral Once a day; Duration: 30 days As needed 11/26/2024 Active Rosuvastatin Calcium 10 MG Tablet Oral 02/13/2024 Active Eliquis 5 MG Tablet Oral 02/13/2024 Active buPROPion HCl ER (XL) 300 MG Tablet Extended Release 24 Hour 1 tablet in the morning Orally Once a day; Duration: 30 days 06/27/2025 Active Benazepril-hydroCHLOR Othiazide 10-12.5 MG Tablet Oral 02/13/2024 Active Metoprolol Tartrate 25 MG Tablet Oral 02/13/2024 Active Dorzolamide HCl-Timolol Mal 22.3-6.8 MG/ML Solution Ophthalmic 02/13/2024 Active Fluticasone Propionate Diskus 50 MCG/ACT Aerosol Powder Breath Activated Inhalation *Reorder from [email or web address] for eRx and Interaction Alerts* 02/13/2024 Active Immunizations Vaccine Route Administration Date [...] History Observation Description Sex Assigned At Female Social History Miscellaneous: Social Info Question Answer Notes Advance Care Planning Are you your own decision-maker Yes Do you have Power of Sharepoint Designer Developer for Health or [facility]? No Safety issues: Are there any firearms in the house? No Social History Social Info Question Answer Notes Household: Marital Status: Single Number of Adults in household: 1 Number of Children in Household: 0 Level of Education: Not Finished College Household: Social Info Question Answer Notes Household Marital status: Number of adults in household: 2 Drug/Alcohol: Social Info Question Answer Notes Drugs Have you used drugs other than those for medical reasons in the past 12 months? No AUDIT-C (Standard) Did you have a drink containing alcohol in the past year? Yes How often did you have six or more drinks on one occasion in the past year? Never (0 point) How many drinks did you have on a typical day when you were drinking in the past year? 1 or 2 drinks (0 point) How often did you have a drink containing alcohol in the past year? Monthly or less (1 point) Caffeine Intake: 1-2 cups per day Tobacco Use: Social Info Question Answer Notes Tobacco Control (Standard) Tobacco use: Nonsmoker Additional Details Category Social Info Options Details Miscellaneous: Occupation: Retired in Drug/Alcohol: Do you smoke marijuana? No Do you drink alcohol? No Section Notes: Social History Substance Use Do [...] Do you have a medical power of deputy commonwealth's attorney?: No Social History Substance Use Do [...] Do you have a medical power of deputy commonwealth's attorney?: No Social History Substance Use Do [...] Do you have a medical power of deputy commonwealth's attorney?: No Social History Substance Use Do [...] Do you have a medical power of deputy commonwealth's attorney?: No Social History Substance Use Do [...] Do you have a medical power of deputy commonwealth's attorney?: No Problems Problem Type SNOMED Code ICD Code Onset Dates Problem Status W/U Status Risk Notes Problem Vitamin D deficiency (90915961) Vitamin D deficiency, unspecified (E55.9) 4 Active confirmed Problem Mild recurrent major depression (38362101) Major depressive disorder, recurrent, mild (F33.0) Active confirmed Problem Moderate recurrent major depression (72572268) Major depressive disorder, recurrent, moderate (F33.1) Active confirmed Problem Generalized anxiety disorder (00288932) Generalized anxiety disorder (F41.1) 4 Active confirmed Problem Primary insomnia (3444608) Primary insomnia (F51.01) 4 Active confirmed Problem Obstructive sleep apnea syndrome (disorder) (23627277) Obstructive sleep apnea (adult) (pediatric) (G47.33) 4 Active confirmed Problem Family conflict (24129686) Family conflict (Z63.8) Active confirmed Vital Signs Heart Rate 73 /min 06/27/2025 Height-cm 147.32 cm 06/27/2025 Blood pressure diastolic 71 mm Hg 06/27/2025 Weight-kg 84.96 kg 06/27/2025 Height 58.00 in 06/27/2025 Blood pressure systolic 123 mm Hg 06/27/2025 Weight 187.3 lbs 06/27/2025 BMI 39.14 kg/m2 06/27/2025 Encounters Encounter Location Date Provider Diagnosis Fracture [place] [id number] [facility] [address] [address] 08/17/2024 Livia Bowman Major depressive disorder, recurrent, mild F33.0 ; Generalized anxiety disorder F41.1 ; Primary insomnia F51.01 ; Obstructive sleep apnea (adult) (pediatric) G47.33 and Vitamin D deficiency, unspecified E55.9 [facility] [address] [facility] [address] [address] 09/28/2024 Margarita Willett Generalized anxiety disorder F41.1 ; Major depressive disorder, recurrent, mild F33.0 ; Primary insomnia F51.01 ; Vitamin D deficiency, unspecified E55.9 and Obstructive sleep apnea (adult) (pediatric) G47.33 Fracture [place] [address] [facility] [address] [address] 10/28/2024 Margarita Willett Major depressive disorder, recurrent, mild F33.0 ; Generalized anxiety disorder F41.1 ; Primary insomnia F51.01 ; Obstructive sleep apnea (adult) (pediatric) G47.33 and Vitamin D deficiency, unspecified E55.[address] [facility] [address] [place] [address] 11/26/2024 Margarita Willett Major depressive disorder, recurrent, mild F33.0 ; Generalized anxiety disorder F41.1 ; Primary insomnia F51.01 ; Obstructive sleep apnea (adult) (pediatric) G47.33 and Vitamin D deficiency, unspecified E55.[address] [facility] [address] [place] [address] 12/28/2024 Margarita Willett Major depressive disorder, recurrent, mild F33.0 ; Generalized anxiety disorder F41.1 ; Primary insomnia F51.01 ; Obstructive sleep apnea (adult) (pediatric) G47.33 and Vitamin D deficiency, unspecified E55.[address] [address] 01/24/2025 Margarita Willett Generalized anxiety disorder F41.1 ; Major depressive disorder, recurrent, moderate F33.1 ; Primary insomnia F51.01 ; Obstructive sleep apnea (adult) (pediatric) G47.33 ; Vitamin D deficiency, unspecified E55.9 and Encounter for screening for depression Z13.[address] [facility] [address] [place] [address] 02/22/2025 Margarita Willett Generalized anxiety disorder F41.1 ; Primary insomnia F51.01 ; Obstructive sleep apnea (adult) (pediatric) G47.33 ; Major depressive disorder, recurrent, moderate F33.1 ; Vitamin D deficiency, unspecified E55.9 ; Stress due to family tension Z63.8 ; Encounter for screening for depression Z13.31 and Encounter for screening for cardiovascular disorders Z13.[address] [address] 04/01/2025 Margarita Willett Generalized anxiety disorder F41.1 ; Major depressive disorder, recurrent, mild F33.0 ; Primary insomnia F51.01 ; Family conflict Z63.8 ; Encounter for screening for cardiovascular disorders Z13.6 and Encounter for screening for depression Z13.[address] [facility] [address] [place] [address] 06/27/2025 Margarita Willett Generalized anxiety disorder F41.1 ; Major depressive disorder, recurrent, mild F33.0 ; Primary insomnia F51.01 and Family conflict Z63.8 [facility] [address] [address] 10/06/2024 Margarita Willett [facility], [facility] [address] [address] 10/07/2024 Margarita Willett Major depressive disorder, recurrent, mild F33.0 [facility] [address] [address] 10/18/2024 Margarita Willett [facility], [facility] [address] [address] 04/29/2025 Margarita Willett Major depressive disorder, recurrent, mild F33.0 [facility] [address] [address] 01/24/2025 Margarita Willett [facility], [facility] [address] [address] 03/18/2025 Margarita Willett [facility], [facility] [address] [address] 03/18/2025 Margarita Willett [facility], [place] [address] [address] 04/01/2025 Margarita Willett Assessments Encounter Date Diagnosis [...] 04/01/2025 Generalized anxiety disorder (ICD-10 - F41.1) 04/29/2025 Major depressive disorder, recurrent, mild (ICD-10 - F33.0) 06/27/2025 Generalized anxiety disorder (ICD-10 - F41.1) 06/27/2025 Primary insomnia (ICD-10 - F51.01) 06/27/2025 Major depressive disorder, recurrent, mild (ICD-10 - F33.0) 04/01/2025 Primary insomnia (ICD-10 - F51.01) 02/22/2025 [...] sleep apnea (adult) (pediatric) (ICD-10 - G47.33) 09/28/2024 Vitamin D deficiency, unspecified (ICD-10 - [...] options 04/01/2025 Family conflict (ICD-10 - Z63.8) 06/27/2025 Family conflict (ICD-10 - Z63.8) 04/01/2025 Encounter for screening for cardiovascular disorders (ICD-10 - Z13.6) 02/22/2025 Vitamin D deficiency, unspecified (ICD-10 - [...] medication efficacy, and explore further options 08/17/2024 Vitamin D deficiency, unspecified (ICD-10 - [...] screening for depression (ICD-10 - Z13.31) 02/22/2025 Stress due to family tension (ICD-10 - Z63.8) 02/22/2025 Encounter for screening for depression (ICD-10 - Z13.31) 02/22/2025 Encounter for screening for cardiovascular disorders (ICD-10 - Z13.6) 09/28/2024 Other referral to the local [facility] or national office of the Alzheimer's Association (7-539-313-39 00; http://www.al z.org), the Alzheimer's Disease Education and Referral Center (ADEAR) (6-967-909-43 80; http://www.ni a.nih.gov/Alz heimers/), Assessment and Plan: - Rebeca has been [...] maybe [facility] [place] [facility] [place], although she denies [...] of avoiding straining due to anticoagulation therapy 06/27/2025 Sarahi Shaw, female, presents with recent fall resulting in rib fracture, facial contusions, and increased emotional lability, as well as ongoing constipation and sleep disturbances. Recent fall with injuries Assessment: Patient reports falling on May 20, 2025, resulting in a fractured rib and facial contusions. She required emergency room evaluation, where CT scan and X-ray confirmed rib fractures. Patient experienced significant pain and mobility limitations for approximately 3 weeks post-injury, necessitating sleep in a recliner. She notes persistent tearing from the left eye, which is gradually improving. The fall and its consequences appear to have exacerbated her emotional state. Plan: - Monitor healing progress of rib fracture and facial contusions - Assess for any lingering pain or functional limitations related to the fall - Evaluate persistent left eye tearing and consider ophthalmology referral if not resolving Depression with emotional lability Assessment: Patient reports increased emotional lability since the fall, describing frequent crying episodes triggered by minor stimuli such as TV shows. This change in emotional state may be related to the recent traumatic experience of the fall and its physical consequences, or it could indicate a need for adjustment in her current antidepressant regimen. Plan: - Continue venlafaxine 150 mg daily - Continue bupropion XL 300 mg daily - Monitor efficacy of current dosage and timing of administration - Follow up in 6 weeks, or sooner if needed, to reassess mood and medication efficacy Sleep disturbances Assessment: Patient reports difficulty falling asleep, sometimes not achieving sleep until 4:30 AM. This may be related to the timing of venlafaxine administration, currently taken around noon. Plan: - Recommend taking bupropion XL in the morning to potentially improve sleep onset - Monitor sleep patterns and reassess at follow-up appointment Constipation Assessment: Patient reports ongoing management of constipation with fiber supplements. She mentions a new medication prescribed, possibly related to recent bone density test results, but is unsure of the name. Plan: - Continue current constipation management with fiber supplements - Review new medication at next appointment, including its purpose and administration instructions - Assess efficacy of current constipation management strategies Medical Decision Making Rebeca Shaw is a female patient presenting with multiple concerns following a fall on May 20, including rib fracture, facial contusions, and increased emotional lability. The patient's fall resulted in rib fractures and facial contusions, confirmed by CT scan and X-ray in the emergency room. The absence of broken cheekbones, nose, or jaw despite facial injuries was noted as unusual by the ER staff. The patient reports persistent tearing from the left eye, which is gradually improving. Emotional lability, manifesting as frequent crying episodes, is likely related to the recent trauma and may be exacerbated by the patient's current medication regimen. The effectiveness of venlafaxine 300mg is being monitored, with consideration given to adjusting the timing of administration to address sleep disturbances. Constipation management is ongoing with fiber supplements and a newly prescribed medication, possibly related to recent bone density testing results suggesting osteoarthritis or osteoporosis. 10/07/2024 Other CancelRx Response got Denied on 2024-11-26 15:18:18 for 'Venlafaxine HCl ER 37.5 MG Tablet Extended Release 24 Hour'Pharmacy Notes: Unable to Cancel Rx. Please contact Pharmacy Plan Of Treatment Next Appt Details Provider Name:Margarita apodaca, 08/22/2025 02:30:00 PM, [address] [facility] [address] [facility] [address], [place], [address], Insurance Providers Payer Name Payer Address Payer Phone Subscriber Number Group Number Insured Name Patient Relationship to Insured Coverage Start Date Coverage End Date Medicare-I l Medicare [address] [place] [address] [id number] REBECA SHAW Self - patient is the insured [facility] [address] [place] [address] [id number] REBECA SHAW Self - patient is the insured Medical (General) History Medical History History ICD Code Past Psychiatric History: Anxiety Disord er,Major Depressive Episode undefined Obesity Obstructive sleep apnea syndrome Primary insomnia Vitamin D deficiency atrial fibrillation Benign essential HTN I10 Surgical History Surgery Date(Month/Year) Cataract surgery (92125) Appendectomy (07821) Tonsilectomy/adenoids 11/03/1953 Hysterectomy (90630) 11/03/1989 Breast surgery (57565) 11/03/2000 Removal of gallbladder (53171) 4 Hospitalization History Reason Date(Month/Year) surgeries
--- OUTSIDE RECORDS SUMMARY | 2025-08-17 16:59 | XMS_ITS | Clinical Summary ---
Author Organization [facility] Address [address] [place] [address] Care Team Providers Care Jewelry Facer Name Role Phone Tanner Edwards MD Primary Care Provider [phone] Social History Tobacco Use Types Packs/Day Years [...] 2025 Insurance MEDICARE PART A AND B [facility] [place] [address] Care Teams Jewelry Facer Relationship Specialty Start Date End Date Tanner Edwards MD PCP - General Family Practice 08/28/16
== END 2025-08-17 14:44 | disposition home or self-care (01) ==
LOC: ANHFOHIMG 14:45
PROVIDERS: PCP Emergency Medicine; Visit Provider Emergency Medicine
DX: Z12.31 Encounter for screening mammogram for malignant neoplasm of breast (principal)
CPT/HCPCS: 77063; 77067

== ENCOUNTER 2025-09-14 09:28 | Outpatient (CLI) | payer MEDICARE, BC, SELFPAY ==
--- OUTSIDE RECORDS SUMMARY | 2025-03-29 08:15 | XMS_ITS ---
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 Name Role Phone Juan Manuel Radford MD Primary Care Provider Unavail able Shelby Crocker Unavailable [phone] Margarita Willett Unavailable [phone] REASON FOR VISIT follow-up Social History Sex Assigned At : Social History Observation Description Sex Assigned At Female Encounters Encounter Location Date Provider Diagnosis [facility] [employer] [facility] [address] [place] [address] 03/29/2025 Margarita Willett Plan Of Treatment Next Appt Details Provider Name:Shelby Crocker, 10/07/2025 02:45:00 PM, [address], [address], [place], [address], Progress Notes * VERN SHAWADOB:1945 ([age] yo F)Acc No.[id number]:03/29/2025 Patient: REBECA VALE Provider: Yloande Willett :1945 A ge:79 Y S ex:Female Date:03/29/2025 Address:[address] [facility] Pcp:Juan Manuel Radford MD Subjective: * Chief Complaints: * F ollow-up Billing Information: * Procedure Codes: * Electronic signature of Oumar Willett on 09/14/2025 at 10:21 AM SENIOUR INSIGHT MANAGER Sign off status: Pending * Provider: Yolande Willett Date: 0 03/29/2025 Generated for Arlette farr/Afshan/Rocio on: 1 11/14/2024 10:21 AM SENIOUR INSIGHT MANAGER
--- OUTSIDE RECORDS SUMMARY | 2025-04-29 09:00 | XMS_ITS ---
Author Organization [facility] [employer] Address [address] [facility] [address] [place] [address] Care Team Providers Care Senior Back End Java Developer Name Role Phone Juan Manuel Radford MD Primary Care Provider Unavail able Shelby Crocker Unavailable [phone] Margarita Willett Unavailable [phone] REASON FOR VISIT 1 month f/u Medications Medication SIG (Take, Route, Frequency, Duration) Notes Start Date End Date Status hydrOXYzine HCl 50 MG Tablet 1 tablet at bedtime Oral Once a day As needed 11/26/2024 Active Venlafaxine HCl ER 150 MG Capsule Extended Release 24 Hour 1 capsule every morning Oral Once a day; Duration: 30 days Active buPROPion HCl ER (XL) 300 MG Tablet Extended Release 24 Hour 1 tablet in the morning Orally Once a day; Duration: 30 days 04/01/2025 Active Xiidra 5 % Solution Ophthalmic 02/13/2024 Active Eliquis 5 MG Tablet Oral 02/13/2024 Active Benazepril-hydroCHLOR Othiazide 10-12.5 MG Tablet Oral 02/13/2024 Active Metoprolol Tartrate 25 MG Tablet Oral 02/13/2024 Active Dorzolamide HCl-Timolol Mal 22.3-6.8 MG/ML Solution Ophthalmic 02/13/2024 Active Fluticasone Propionate Diskus 50 MCG/ACT Aerosol Powder Breath Activated Inhalation *Reorder from [facility] for eRx and Interaction Alerts* 02/13/2024 Active Rosuvastatin Calcium 10 MG Tablet Oral 02/13/2024 Active Ketoconazole 2% Cream External 02/13/2024 Active Social History Sex Assigned At : Social History Observation Description Sex Assigned At Female Encounters Encounter Location Date [place] [facility] [place] [address] [place] [address] 04/29/2025 Margarita Willett Plan Of Treatment Next Appt Details Provider Name:Shelby Crocker, 10/07/2025 02:45:00 PM, [address], [address], [place], [address], Progress Notes * JOE SHAWB:1945 ([age] yo F)Acc No.[id number]:04/29/2025 Patient: REBECA VALE Provider: Yolande Willett :1945 A ge:79 Y S ex:Female Date:04/29/2025 Address:[address] [place] [address], [id number] Pcp:Juan Manuel Radford MD Subjective: * Chief Complaints: * 1 month f/u * Medications: T akingXiidra 5 % Solution Ophthalmic Ketoconazole 2% Cream External Benazepril-hydroCHLOROthiazide 10-12.5 MG Tablet Oral Metoprolol Tartrate 25 MG Tablet Oral Dorzolamide HCl-Timolol Mal 22.3-6.8 MG/ML Solution Ophthalmic Fluticasone Propionate Diskus 50 MCG/ACT Aerosol Powder Breath Activated Inhalation , Notes to Pharmacist: *Reorder from [facility] for eRx and Interaction Alerts*Rosuvastatin Calcium 10 MG Tablet Oral Eliquis 5 MG Tablet Oral hydrOXYzine HCl 50 MG Tablet 1 tablet at bedtime Oral Once a day As neededVenlafaxine HCl ER 150 MG Capsule Extended Release 24 Hour 1 capsule every morning Oral Once a day buPROPion HCl ER (XL) 300 MG Tablet Extended Release 24 Hour 1 tablet in the morning Orally Once a day Taking Xiidra 5 % Solution Ophthalmic Taking Ketoconazole 2% Cream External Taking Benazepril-hydroCHLOROthiazide 10-12.5 MG Tablet Oral Taking Metoprolol Tartrate 25 MG Tablet Oral Taking Dorzolamide HCl-Timolol Mal 22.3- 6.8 MG/ML Solution Ophthalmic Taking Fluticasone Propionate Diskus 50 MCG/ACT Aerosol Powder Breath Activated Inhalation , Notes to Pharmacist: *Reorder from [facility] for eRx and Interaction Alerts*Taking Rosuvastatin Calcium 10 MG Tablet Oral Taking Eliquis 5 MG Tablet Oral Taking hydrOXYzine HCl 50 MG Tablet 1 tablet at bedtime Oral Once a day As neededTaking Venlafaxine HCl ER 150 MG Capsule Extended Release 24 Hour 1 capsule every morning Oral Once a day Taking buPROPion HCl ER (XL) 300 MG Tablet Extended Release 24 Hour 1 tablet in the morning Orally Once a day Billing Information: * Procedure Codes: * Electronic signature of Oumar Willett on 09/14/2025 at 10:22 AM CUSTOM APPLICATOR Sign off status: Pending * Provider: Yolande Willett Date: 0 04/29/2025 Generated for Arlette farr/Afshan/Rocio on: 1 11/14/2024 10:22 AM CUSTOM APPLICATOR
--- OUTSIDE RECORDS SUMMARY | 2025-08-29 09:00 | XMS_ITS ---
Author Organization [facility] Address [address] [place] [address] Care Team Providers Care Gauge Operator Name Role Phone Juan Manuel Radford MD Primary Care Provider Unavail able Shelby Crocker Unavailable [phone] Margarita Willett Unavailable [phone] REASON FOR VISIT follow-up Social History Sex Assigned At : Social History Observation Description Sex Assigned At Female Encounters Encounter Location Date Provider Diagnosis [facility] [address] [place] [address] 08/29/2025 Margarita Willett Plan Of Treatment Next Appt Details Provider Name:Shelby Crocker, 10/07/2025 02:45:00 PM, [address], [place], [address], Progress Notes * VERN SHAWADOB:1945 ([age] yo F)Acc No.[id number]:08/29/2025 Patient: REBECA VALE Provider: Yolande Willett :1945 A ge:80 Y S ex:Female Date:08/29/2025 Address:[address] [facility] Pcp:Juan Manuel Radford MD Subjective: * Chief Complaints: * F ollow-up Billing Information: * Procedure Codes: * Electronic signature of Oumar Willett on 09/14/2025 at 10:21 AM ALARM SECURITY OR SURVEILLANCE MONITOR Sign off status: Pending * Provider: Yolande Willett Date: Generated for Arlette farr/Afshan/Rocio on: 11/14/2024 10:21 AM ALARM SECURITY OR SURVEILLANCE MONITOR
--- NOTE | ~2025-09-14 | NM_ITS ---
EXAMINATION: NM arianna stress w perfusion DATE: 09/14/2025 13:37 INDICATION: Chest pain TECHNIQUE: Rest images were obtained following intravenous administration of 10 mCi Tc99m tetrofosmin (Myoview). The patient was infused intravenously with Lexiscan (Regadenoson). Then, 30 mCi Tc99m tetrofosmin (Myoview) was administered intravenously, and stress images were obtained. Data was reconstr ucted into short axis and horizontal and vertical long axis SPECT images. Gated SPECT images were also obtained. COMPARISON: None. FINDINGS: There is a mild reversible perfusion defect involving the mid inferolateral, mid inferior and basilar inferior segments consistent with ischemia. There is normal left ventricular chamber size, wall motion and ejection fraction. Left ventricular ejection fraction measures >70%. IMPRESSION: 1. Small region of mild ischemia involving the mid inferolateral and mid and basilar inferior segments. 2. Left ventricular ejection fraction measuring >70%. Reviewed, dictated and finalized at location A. [facility] IMPRESSION: 1. Small region of mild ischemia involving the mid inferolateral and mid and ba silar inferior segments. 2. Left ventricular ejection fraction measuring >70%.
--- NOTE | 2025-09-14 10:16 | EST_ITS ---
Patient Info Name: Lennie Shaw Age: 80 years : 1945 Gender: Female Ht: 57 in Wt: 180 lbs BSA: 1.86 m2 HR: 78 bpm BP: 131 / 84 mmHg Exam Date: 09/14/2025 10:16 AM Patient Status: O Admit Date: 09/14/2025 Exam Type: CA stress arianna w NM A regadenoson stress test was performed. Staff Referring Physician: Real Doherty DO Attending Provider: Real Doherty DO Exercise Technologist: Angela Butcher Exercise Physician: Real Doherty DO Summary 1. 1. Negative lexiscan stress test for ischemic ST changes by ECG criteria. 2. 2. Stable hemodynamics throughout the test. 3. 3. Nuclear scan to follow and will be reported separately. Please correlate with it. 4. 4. Patient informed of the above results. Protocol: Lexiscan Stress ECG Details Stage: REST Duration (min): 0 min : 54 sec HR (bpm): 80 SBP (mmHg): 131 DBP (mmHg): 84 Stage: REST Duration (min): 1 min : 26 sec HR (bpm): 78 SBP (mmHg): 131 DBP (mmHg): 84 Stage: REST Duration (min): 2 min : 48 sec HR (bpm): 79 SBP (mmHg): 131 DBP (mmHg): 84 Stage: REST Duration (min): 5 min : 41 sec HR (bpm): 80 SBP (mmHg): 131 DBP (mmHg): 84 Stage: STAGE 1 Duration (min): 0 min : 59 sec HR (bpm): 87 SBP (mmHg): 126 DBP (mmHg): 83 Stage: RECOVERY Duration (min): 1 min : 0 sec HR (bpm): 90 SBP (mmHg): 126 DBP (mmHg): 83 Stage: RECOVERY Duration (min): 2 min : 0 sec HR (bpm): 90 SBP (mmHg): 126 DBP (mmHg): 83 Stage: RECOVERY Duration (min): 3 min : 0 sec HR (bpm): 89 SBP (mmHg): 142 DBP (mmHg): 82 Stage: RECOVERY Duration (min): 4 min : 0 sec HR (bpm): 89 SBP (mmHg): 142 DBP (mmHg): 82 Stage: RECOVERY Duration (min): 5 min : 0 sec HR (bpm): 90 SBP (mmHg): 122 DBP (mmHg): 79 Stage: RECOVERY Duration (min): 5 min : 32 sec HR (bpm): 89 SBP (mmHg): 122 DBP (mmHg): 79 Rest HR: 80 bpm Peak HR: 91 bpm Rest Sys BP: 131 mmHg Peak Sys BP: 142 mmHg Max Pred HR: 139 bpm % Max Pred HR: 65 % Target HR: 118 bpm Max RPP: 12,922 bpm*mmHg Termination Reason: Completed protocol Cardiac Symptoms: Shortness of breath Total Time: 1 min : 0 sec Rest Carrillo BP: 84 mmHg Peak Carrillo BP: 82 mmHg Total Dose: 0.4 mg Resting ECG Sinus rhythm. Stress ECG No ST changes. Arrhythmias None. Report Signatures
--- OUTSIDE RECORDS SUMMARY | 2025-09-14 10:21 | XMS_ITS | Encounter Summary ---
Author Organization [facility] Address [address] [place] [address] Care Team Providers Care Channel Installer Name Role Phone Juan Manuel Radford MD Primary Care Provider [phone] Encounter Details Date Type Department Care Team (Late st Contact Info) Description 08/05/2019 Lab Requisition [facility] DermPath Lab [address] [facility] [address] [facility] [place] [address] Laura Esteban DO [address] [facility] [address] [place] [address] Social History Tobacco Use Types Packs/Day Years [...] AM CDT) Case Report Dermatopathology Report Case: [id number] Authorizing Provider: Laura Esteban DO Collected: 08/04/2019 12:00 AM Ordering Location: [facility] DermPath Lab Received: 08/05/2019 12:39 PM Pathologist: Mariposa Aceves MD Specimen: Skin, left FA 9 3:51 PM CDT DERMATOPATHOLOGY LABORATORY Final Diagnosis Specimen A. SKIN, left FA: URTICARIA, CONSISTENT WITH (L50.9) 9 3:51 PM CDT DERMATOPATHOLOGY LABORATORY at 1551 CDT Clinical History [place] pruritic papules/plaques recurrent kwame FA. PMLE vs CTD vs ACD. 3:51 PM CDT DERMATOPATHOLOGY LABORATORY Gross Description Specimen A: Received is one formalin filled container labeled with the patient's name and designated left FA. The specimen consists of a punch measuring [id number], bisected. Jar 0. 3:51 PM CDT DERMATOPATHOLOGY [...] characteristic determined by the Dermatopathology Laboratory at [facility], directed by Dr. Kourtney Aceves. These tests need not be, and therefore are not, approved by the [place] Food and Drug Administration. The tests are used for clinical purposes. Billing Codes Specimen Charges Stain Charges 43902 1 3:51 PM CDT DERMATOPATHOLOGY LABORATORY Embedded Images 3:51 PM CDT DERMATOPATHOLOGY LABORATORY Pathology/Cytolog y TISSUE SPECIMEN FROM SKIN / Unknown 08/04/2019 08/05/2019 12:39 PM CDT Laura Esteban DO LAB - PATHOLOGY/CYTOLOGY ORDERABLES Final Result DERMATOPATHOLOGY LABORATORY [facility] - Department of Dermatology [address] [place] [address], [address] [place] [address], [facility] [phone] documented in this encounter Visit Diagnoses Not on filedocumented in this encounter Care Teams Channel Installer Relationship Specialty Start Date End Date Juan Manuel Radford MD [address] [facility] [address] [place] [address] PCP - General 06/02/19 documented as of this encounter
--- OUTSIDE RECORDS SUMMARY | 2025-09-14 10:21 | XMS_ITS | Encounter Summary ---
Author Organization [facility] Address [address] [place] [address] Care Team Providers Care Diet Kitchen Cook Name Role Phone Juan Manuel Radford MD Primary Care Provider [phone] Encounter Details Date Type Department Care Team (Late st Contact Info) Description 08/19/2024 Lab Requisition [facility] - DermPath Lab [address] [facility] [place] [address] Laura Esteban DO [address] [facility] 3 [place] [address] Social History Tobacco Use Types Packs/Day Years [...] AM CDT) Case Report Dermatopathology Report Case: [id number] Authorizing Provider: Laura Esteban DO Collected: 08/19/2024 11:15 AM Ordering Location: [facility] - Received: 08/19/2024 03:21 PM [...] determined by the Dermatopathology Laboratory at [facility], directed by Dr. Kourtney Aceves. These tests need not be, and therefore are not, approved by the [place] Food and Drug Administration. The tests are used for clinical purposes. Billing Codes Specimen Charges Stain Charges 03676 1 69017 1 12:28 PM CDT DERMATOPATHOLOGY LABORATORY Embedded Images 12:28 PM CDT DERMATOPATHOLOGY LABORATORY Pathology/Cytolo gy TISSUE SPECIMEN FROM SKIN / Unknown 08/19/2024 11:15 AM CDT 08/19/2024 3:21 PM CDT us Laura Esteban DO LAB - PATHOLOGY/CYTOLOGY ORDERABLES Final Result DERMATOPATHOLOGY LABORATORY [facility] - Department of Dermatology [facility] Medicine [address] [place] [address], [address] [place] [address], [facility] [phone] documented in this encounter Visit Diagnoses Not on filedocumented in this encounter Care Teams Diet Kitchen Cook Relationship Specialty Start Date End Date Juan Manuel Radford MD [address] [employer] [facility] 2 [place] [address] PCP - General 06/02/19 documented as of this encounter
--- OUTSIDE RECORDS SUMMARY | 2025-09-14 10:21 | XMS_ITS | Clinical Summary ---
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 Gender Identity Not on file Sexual Orientation Not on file Last Filed Vital Signs Vital Sign Reading Time Taken Comments Blood Pressure 124/76 10/04/2021 2:53 PM GAS TURBINE MECHANIC Pulse 78 10/04/2021 2:53 PM GAS TURBINE MECHANIC Temperature - - Respiratory Rate - - Oxygen Saturation 96% 10/04/2021 2:53 PM GAS TURBINE MECHANIC Inhaled Oxygen Concentration - - Weight - - Height - - Body Mass Index - - Plan of Treatment Not on file Insurance MEDICARE [employer] CHOICE MEDICARE [employer] [place] Care Teams Warp Yarn Sorter Relationship Specialty Start Date End Date Juan Manuel Radford MD [address] [place] [address] PCP - General 07/29/14
--- OUTSIDE RECORDS SUMMARY | 2025-09-14 10:21 | XMS_ITS | Clinical Summary ---
Author Organization [facility] Address [address] [place] [address] Care Team Providers Care Insecticide Maker Name Role Phone Juan Manuel Radford MD Primary Care Provider [phone] Social History Tobacco Use Types Packs/Day Years [...] age to complete this topic Insurance MEDICARE [facility] Advance Directives Documents on File Type Date Recorded Patient Moisture Meter Reader Expl anation Advance Directives and Livin g Will 05/17/2016 POWER OF SPECIAL CRIMES INVESTIGATOR Care Teams Insecticide Maker Relationship Specialty Start Date End Date Juan Manuel Radford MD [address] [place] [address] PCP - General 08/06/16
--- OUTSIDE RECORDS SUMMARY | 2025-09-14 10:21 | XMS_ITS | Encounter Summary ---
Author Organization [facility] Address [address] [facility] [place] [address] Care Team Providers Care Quality Checker Name Role Phone Juan Manuel Radford MD Primary Care Provider Encounter Details Date Type Department Care Team (Late st Contact Info) Description 02/24/2024 Lab Requisition [facility] - DermPath Lab [address] [facility], [facility] [place] [address] Laura Esteban DO [address] [facility] 3 [place] [address] Social History Tobacco Use Types Packs/Day Years [...] AM CDT) Case Report Dermatopathology Report Case: [id number] Authorizing Provider: Laura Esteban DO Collected: 02/24/2024 10:19 AM Ordering Location: [facility] - Received: 02/25/2024 01:49 [...] determined by the Dermatopathology Laboratory at [facility], directed by Dr. Kourtney Aceves. These tests need not be, and therefore are not, approved by the [place] Food and Drug Administration. The tests are used for clinical purposes. Billing Codes Specimen Charges Stain Charges 47165 1 1:39 PM CDT DERMATOPATHOLOGY LABORATORY Embedded Images 1:39 PM CDT DERMATOPATHOLOGY LABORATORY Pathology/Cytolo gy TISSUE SPECIMEN FROM SKIN / Unknown 02/24/2024 10:19 AM CDT 02/25/2024 1:49 PM CDT us Laura Esteban DO LAB - PATHOLOGY/CYTOLOGY ORDERABLES Final Result DERMATOPATHOLOGY LABORATORY [facility] - Department of Dermatology [facility] Medicine [address] [place] [address], [address] [phone] documented in this encounter Visit Diagnoses Not on filedocumented in this encounter Care Teams Quality Checker Relationship Specialty Start Date End Date Juan Manuel Radford MD [address] [place] [address] [address] [place] [id number] PCP - General 06/02/19 documented as of this encounter
--- OUTSIDE RECORDS SUMMARY | 2025-09-14 10:21 | XMS_ITS | Clinical Summary ---
Author Organization [facility] Address [address] [place] [address] Care Team Providers Care Avionics Safety Inspector Name Role Phone Juan Manuel Radford MD Primary Care Provider [phone] Source Comments [facility],non-owned Affiliates and Associated Physician Practices is amultiple site organization consisting of ambulatory clinics and hospital sitesin [place], [place], [place] and [place]. This disclosure is being madepursuant to the Care Everywhere program and may not contain all information available regarding this patient. Last updated 18.[facility] [employer] Social History Tobacco Use Types Packs/Day Years [...] age to complete this topic Insurance MEDICARE [facility]ICARE [facility] Care Teams Avionics Safety Inspector Relationship Specialty Start Date End Date Juan Manuel Radford MD [address] [place] [address] 2 [place] [address] PCP - General 06/02/19
--- OUTSIDE RECORDS SUMMARY | 2025-09-14 10:21 | XMS_ITS | Encounter Summary ---
Author Organization [facility] Address [address] [facility] [place] [address] Care Team Providers Care Freight Unloader Name Role Phone Juan Manuel Radford MD Primary Care Provider Encounter Details Date Type Department Care Team (Late st Contact Info) Description 06/03/2019 Lab Requisition [facility] Care DermPath Lab [address] [facility] [place] [address] Laura Esteban DO [address] [facility] 3 [place] [address] Social History Tobacco Use Types Packs/Day Years [...] AM CDT) Case Report Dermatopathology Report Case: [id number] Authorizing Provider: Laura Esteban DO Collected: 06/02/2019 12:00 AM Pathologist: Mariposa Aceves MD Received: 06/03/2019 05:39 AM Specimen: Skin, left hand 9 9:09 AM CDT DERMATOPATHOLOGY LABORATORY Final Diagnosis Specimen A. 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 Hx PMLE. HAK vs SCC vs PMLE. 9:09 AM CDT DERMATOPATHOLOGY LABORATORY Gross Description Specimen A: Received is one formalin filled container labeled with the patient's name and designated left hand. The specimen consists of a shave measuring [id number]. Jar 0. 9 9:09 AM CDT DERMATOPATHOLOGY [...] characteristic determined by the Dermatopathology Laboratory at [facility], directed by Dr. Kourtney Aceves. These tests need not be, and therefore are not, approved by the [place] Food and Drug Administration. The tests are used for clinical purposes. Billing Codes Specimen Charges Stain Charges 23351 1 9 9:09 AM CDT DERMATOPATHOLOGY LABORATORY Embedded Images 9:09 AM CDT DERMATOPATHOLOGY LABORATORY Pathology/Cytolog y TISSUE SPECIMEN FROM SKIN / Unknown 06/02/2019 06/03/2019 5:39 AM CDT Laura Esteban DO LAB - PATHOLOGY/CYTOLOGY ORDERABLES Final Result DERMATOPATHOLOGY LABORATORY [facility] - Department of Dermatology [address] [place] [address], 5th [place] [address], [facility] [phone] documented in this encounter Visit Diagnoses Not on filedocumented in this encounter Care Teams Freight Unloader Relationship Specialty Start Date End Date Juan Manuel Radford MD [address] [facility] [address] [place] [address] PCP - General 06/02/19 documented as of this encounter
--- OUTSIDE RECORDS SUMMARY | 2025-09-14 10:22 | XMS_ITS | Patient Health Record ---
Author Organization [facility] [employer] [facility] Address [address] [place] [address] Care Team Providers Care Chemistry Quality Control Technician Name Role Phone Juan Manuel Radford MD Primary Care Provider Unavail able Shelby Crocker Unavailable [phone] Margarita Willett Unavailable [phone] Allergies Allergen (clinical drug ingredient) Drug/Non Drug Allergy documented on EMR Reaction Allergy Type Onset Date Status FD AND C RED NO.40 (uncoded) Unknown Allergy 01/15/2024 Active RAGWEED POLLEN (uncoded) Unknown Allergy 01/15/2024 Active Tree pollen TREE POLLEN (uncoded) Unknown Allergy 2023 Active Reason For Referral No Information Medications Medication SIG (Take, Route, Frequency, Duration) Notes Start Date End Date Status Xiidra 5 % Solution Ophthalmic 02/13/2024 Active Venlafaxine HCl ER 150 MG Capsule Extended Release 24 Hour 1 capsule every morning Oral Once a day 06/27/2025 Active Ketoconazole 2% Cream External 02/13/2024 Active buPROPion HCl ER (XL) 300 MG Tablet Extended Release 24 Hour 1 tablet in the morning Orally Once a day 06/27/2025 Active hydrOXYzine HCl 50 MG Tablet TAKE 1 TABLET BY MOUTH DAILY AT BEDTIME NEEDED Active Benazepril-hydroCHL OROthiazide 10-12.5 MG Tablet Oral 02/13/2024 Active Metoprolol Tartrate 25 MG Tablet Oral 02/13/2024 Active Dorzolamide HCl-Timolol Mal 22.3-6.8 MG/ML Solution Ophthalmic 02/13/2024 Active Fluticasone Propionate Diskus 50 MCG/ACT Aerosol Powder Breath Activated Inhalation *Reorder from [employer] for eRx and Interaction Alerts* 02/13/2024 Active Rosuvastatin Calcium 10 MG Tablet Oral 02/13/2024 Active Eliquis 5 MG Tablet Oral 02/13/2024 Active buPROPion HCl ER (XL) 300 MG Tablet Extended Release 24 Hour 1 tablet in the morning Orally Once a day; Duration: 30 days Not-Taking Immunizations Vaccine Route Administration Date Status Comme [...] decision-maker Yes Do you have Power of Draw Hand for [facility] or [facility]? No Safety issues: Are there any firearms [...] Do you have a medical power of real estate associate attorney?: No Social History Substance Use Do [...] Do you have a medical power of real estate associate attorney?: No Social History Substance Use Do [...] Do you have a medical power of real estate associate attorney?: No Social History Substance Use Do [...] Do you have a medical power of real estate associate attorney?: No Social History Substance Use Do [...] Do you have a medical power of real estate associate attorney?: No Problems Problem Type SNOMED Code ICD Code Onset Dates Problem Status W/U Status Risk Notes Problem Vitamin D deficiency (95790311) Vitamin D deficiency, unspecified (E55.9) 4 Active confirmed Problem Mild recurrent major depression (62302651) Major depressive disorder, recurrent, mild (F33.0) Active confirmed Problem Moderate recurrent major depression (46439125) Major depressive disorder, recurrent, moderate (F33.1) Active confirmed Problem Recurrent major depression (29791979) Major depressive disorder, recurrent, unspecified (F33.9) Active confirmed Problem Generalized anxiety disorder (85673312) Generalized anxiety disorder (F41.1) 4 Active confirmed Problem Primary insomnia (8076985) Primary insomnia (F51.01) 4 Active confirmed Problem Obstructive sleep apnea syndrome (disorder) (76868833) Obstructive sleep apnea (adult) (pediatric) (G47.33) 4 Active confirmed Problem Family conflict (99434738) Family conflict (Z63.8) Active confirmed Vital Signs Heart Rate 67 /min 09/06/2025 Height-cm 147.32 cm 09/06/2025 Blood pressure diastolic 77 mm Hg 09/06/2025 Weight-kg 82.1 kg 09/06/2025 Height 58.00 in 09/06/2025 Blood pressure systolic 111 mm Hg 09/06/2025 Weight 181 lbs 09/06/2025 BMI 37.82 kg/m2 09/06/2025 Encounters Encounter Location Date Provider Diagnosis [facility] [address] [address] 09/28/2024 Margarita Willett Generalized anxiety disorder F41.1 ; Major depressive disorder, recurrent, mild F33.0 ; Primary insomnia F51.01 ; Vitamin D deficiency, unspecified E55.9 and Obstructive sleep apnea (adult) (pediatric) G47.33 [facility] [address] [address] 10/28/2024 Margarita Willett Major depressive disorder, recurrent, mild F33.0 ; Generalized anxiety disorder F41.1 ; Primary insomnia F51.01 ; Obstructive sleep apnea (adult) (pediatric) G47.33 and Vitamin D deficiency, unspecified E55.9 [facility] [address] [facility] [address] [place] [address] 11/26/2024 Margarita Willett Major depressive disorder, recurrent, mild F33.0 ; Generalized anxiety disorder F41.1 ; Primary insomnia F51.01 ; Obstructive sleep apnea (adult) (pediatric) G47.33 and Vitamin D deficiency, unspecified E55.9 [facility] [place] [address] [facility] [address] [place] [address] 12/28/2024 Margarita Willett Major depressive disorder, recurrent, mild F33.0 ; Generalized anxiety disorder F41.1 ; Primary insomnia F51.01 ; Obstructive sleep apnea (adult) (pediatric) G47.33 and Vitamin D deficiency, unspecified E55.[address] [address] 01/24/2025 Margarita Willett Generalized anxiety disorder F41.1 ; Major depressive disorder, recurrent, moderate F33.1 ; Primary insomnia F51.01 ; Obstructive sleep apnea (adult) (pediatric) G47.33 ; Vitamin D deficiency, unspecified E55.9 and Encounter for screening for depression Z13.[address] [address] 02/22/2025 Margarita Willett Generalized anxiety disorder F41.1 ; Primary insomnia F51.01 ; Obstructive sleep apnea (adult) (pediatric) G47.33 ; Major depressive disorder, recurrent, moderate F33.1 ; Vitamin D deficiency, unspecified E55.9 ; Stress due to family tension Z63.8 ; Encounter for screening for depression Z13.31 and Encounter for screening for cardiovascular disorders Z13.[address] [address] 04/01/2025 Margarita Willett Generalized anxiety disorder F41.1 ; Major depressive disorder, recurrent, mild F33.0 ; Primary insomnia F51.01 ; Family conflict Z63.8 ; Encounter for screening for cardiovascular disorders Z13.6 and Encounter for screening for depression Z13.[address] [address] 06/27/2025 Margarita Willett Generalized anxiety disorder F41.1 ; Major depressive disorder, recurrent, mild F33.0 ; Primary insomnia F51.01 and Family conflict Z63.[address] [address] 08/22/2025 Margarita Willett [address] [address] 09/06/2025 Shelby Crocker Generalized anxiety disorder F41.1 ; Major depressive disorder, recurrent, unspecified F33.9 and Primary insomnia F51.01 [facility] [employer], [facility] [address] [place] [address] 09/09/2025 Shelby [employer] [facility] [employer], [facility] [address] [place] [address] 10/06/2024 Margarita Willett [facility], [facility] [address] [place] [address] 10/07/2024 Margarita Willett Major depressive disorder, recurrent, mild F33.0 [facility] [employer], [facility] [address] [place] [address] 10/18/2024 Margarita Willett [facility] [employer], [facility] [address] [place] [address] 04/29/2025 Margarita Willett Major depressive disorder, recurrent, mild F33.0 [facility] [employer], [facility] [address] [place] [address] 09/06/2025 Shelby [employer] [facility] [employer], [facility] [address] [place] [address] 01/24/2025 Margarita Willett [facility] [employer], [facility] [address] [place] [address] 03/18/2025 Margarita Willett [facility] [employer], [facility] [address] [place] [address] 03/18/2025 [facility] [employer], [facility] [address] [facility] [address] [place] [address] 04/01/2025 Margarita Willett Assessments Encounter Date Diagnosis (ICD Code) Assessment Notes Treatment Notes Treatment Clinical Notes Section Notes 09/28/2024 Major depressive disorder, recurrent, mild (ICD-10 [...] side effects and sleep disturbances - Encourage stress-reducin g activities (exercise, relaxation techniques, social support) - [...] ER to 150 mg daily - Encourage stress-reducin g activities (exercise, relaxation techniques, social support) - [...] ER to 150 mg daily - Encourage stress-reducin g activities (exercise, relaxation techniques, social support) - [...] Continue venlafaxine 150 mg daily - Encourage stress-reducin g activities (exercise, relaxation techniques, social support) - [...] 01/24/2025 Generalized anxiety disorder (ICD-10 - F41.1) 04/01/2025 Major depressive disorder, recurrent, mild (ICD-10 - F33.0) 04/01/2025 Generalized anxiety disorder (ICD-10 - F41.1) 10/07/2024 Major depressive disorder, recurrent, mild (ICD-10 - F33.0) 04/29/2025 Major depressive disorder, recurrent, mild (ICD-10 - F33.0) 06/27/2025 Generalized anxiety disorder (ICD-10 - F41.1) 09/06/2025 Major depressive disorder, recurrent, unspecified (ICD-10 - F33.9) Persistent depression linked to family stressors and daughter's illness. Mood improves when daughter is not present. Patient is seeking coping strategies and support. - Continue Wellbutrin 300 mg. 09/06/2025 Generalized anxiety disorder (ICD-10 - F41.1) Ongoing anxiety, especially at night, exacerbated by family stressors and daughter's mental health issues. Patient reports difficulty controlling anxiety when daughter is absent. Denies thoughts of harm to self or others. Current counseling is not perceived as helpful. - Continue Effexor 150 mg. - Referral to counseling for improved support. 02/22/2025 Generalized anxiety disorder (ICD-10 - F41.1) 02/22/2025 Primary insomnia (ICD-10 - F51.01) 09/06/2025 Primary insomnia (ICD-10 - F51.01) Difficulty sleeping due to anxiety and racing thoughts. Sleep improved with medication, but patient does not take sleep medication every night. Patient follows advice to take sleep medication when ready to relax. - Continue Vistaril 50 mg as needed for sleep. 06/27/2025 Primary insomnia (ICD-10 - F51.01) 06/27/2025 Major depressive disorder, recurrent, mild (ICD-10 - F33.0) 04/01/2025 Primary insomnia (ICD-10 - F51.01) 01/24/2025 Primary insomnia (ICD-10 - F51.01) 12/28/2024 Generalized anxiety disorder (ICD-10 - F41.1) Anxiety/ Depression - making small improvements - Ongoing stressors, situational factors she feels cause her emotional episodes Plan: - Continue venlafaxine 150 mg daily - Encourage stress-reducin g activities (exercise, relaxation techniques, social support) - [...] ER to 150 mg daily - Encourage stress-reducin g activities (exercise, relaxation techniques, social support) - [...] side effects and sleep disturbances - Encourage stress-reducin g activities (exercise, relaxation techniques, social support) - [...] medication efficacy, and explore further options 10/28/2024 Primary insomnia (ICD-10 - F51.01) Assessment and Plan: Major Depressive Disorder and Anxiety - making small improvements, has only been on venlafaxine ER 75 mg 3 weeks with the confuson prior - also stopped quetiapine during the time Plan: - Increase venlafaxine ER to 112.5 mg daily, take in the morning - Monitor for side effects and sleep disturbances - Encourage stress-reducin g activities (exercise, relaxation techniques, social support) - [...] ER to 150 mg daily - Encourage stress-reducin g activities (exercise, relaxation techniques, social support) - [...] Continue venlafaxine 150 mg daily - Encourage stress-reducin g activities (exercise, relaxation techniques, social support) - [...] sleep apnea (adult) (pediatric) (ICD-10 - G47.33) 06/27/2025 Family conflict (ICD-10 - Z63.8) 09/28/2024 Vitamin D deficiency, unspecified (ICD-10 - [...] options 04/01/2025 Family conflict (ICD-10 - Z63.8) 02/22/2025 Obstructive sleep apnea (adult) (pediatric) (ICD-10 - G47.33) 02/22/2025 Vitamin D deficiency, unspecified (ICD-10 - E55.9) 02/22/2025 Major depressive disorder, recurrent, moderate (ICD-10 - F33.1) 04/01/2025 Encounter for screening for cardiovascular disorders (ICD-10 - Z13.6) 12/28/2024 Obstructive sleep apnea (adult) (pediatric) (ICD-10 - G47.33) Anxiety/ Depression - making small improvements - Ongoing stressors, situational factors she feels cause her emotional episodes Plan: - Continue venlafaxine 150 mg daily - Encourage stress-reducin g activities (exercise, relaxation techniques, social support) - [...] side effects and sleep disturbances - Encourage stress-reducin g activities (exercise, relaxation techniques, social support) - [...] ER to 150 mg daily - Encourage stress-reducin g activities (exercise, relaxation techniques, social support) - [...] and make further adjustments if necessary 09/28/2024 Obstructive sleep apnea (adult) (pediatric) (ICD-10 [...] symptoms, medication efficacy, and explore further options 12/28/2024 Vitamin D deficiency, unspecified (ICD-10 - E55.9) Anxiety/ Depression - making small improvements - Ongoing stressors, situational factors she feels cause her emotional episodes Plan: - Continue venlafaxine 150 mg daily - Encourage stress-reducin g activities (exercise, relaxation techniques, social support) - [...] side effects and sleep disturbances - Encourage stress-reducin g activities (exercise, relaxation techniques, social support) - [...] screening for cardiovascular disorders (ICD-10 - Z13.6) 01/24/2025 Other Rebeca Shaw, an adult female [...] thought maybe I'd be better off in [facility] than down here, although she denies active [...] - Monitor for any lightheadedness or dizziness 09/28/2024 Other referral to the local chapter or national office of the Alzheimer's Association ( ; http://www.alz.o rg), the Alzheimer's Disease Education and Referral Center (ADEAR) ( ; http://www.mayra.n ih.gov/Alzheimer s/), Assessment and Plan: - Rebeca has been [...] symptoms, medication efficacy, and explore further options 10/07/2024 Other CancelRx Response got Denied on 2024-11-26 15:18:18 for 'Venlafaxine HCl ER 37.5 MG Tablet Extended Release 24 Hour'Pharmacy Notes: Unable to Cancel Rx. Please contact Pharmacy 09/06/2025 Other Gait, Strength, and Balance Training ExercisesThis handout provides simple exercises to improve your gait, strength, and balance. Theseexercises can help prevent falls, improve mobility, and enhance overall function. Perform them in asafe space, use support if needed, and stop if you feel pain or dizziness.1. Gait Training Exercises- Walk in a straight line for 10-20 feet, heel-to-toe.- Step over small objects (cones or rolled towels).- Practice walking sideways and backwards.- Use a treadmill if available, under supervision.2. Balance Exercises- Stand on one foot for 10-30 seconds; switch legs.- Walk heel-to-toe in a straight line.- Use a balance board or cushion to challenge stability.- Practice rising from a chair without using your hands.3. Strength Training Exercises- [id number]: rise from a chair repeatedly.- Wall push-ups: stand at arm's length from a wall and push.- Step-ups on a low step or stairs.- Leg lifts while seated or lying down.Consult your primary care provider (PCP) before starting these exercises, especially if you havemedical conditions or difficulty performing them 04/01/2025 Sarahi Shaw, an 79-year-old female with [...] density testing results suggesting osteoarthritis or osteoporosis. Plan Of Treatment Next Appt Details Provider Name:Shelby Crocker, 10/07/2025 02:45:00 PM, [address], [address], [place], [address], Insurance Providers Payer Name Payer Address Payer Phone Subscriber Number Group Number Insured Name Patient Relationship to Insured Coverage Start Date Coverage End Date Medicare-I l Medicare [address] [place] [phone] [id number] REBECA SHAW Self - patient is the insured [facility] [address] [place] [address] [id number] REBECA SHAW Self - patient is the insured Medical (General) History Medical History History ICD Code Past Psychiatric History: Anxiety Disord er,Major Depressive Episode undefined Obesity Obstructive sleep apnea syndrome Primary insomnia Vitamin D deficiency atrial fibrillation Benign essential HTN I10 Surgical History Surgery Date(Month/Year) Cataract surgery (65514) Appendectomy (01925) Tonsilectomy/adenoids 11/03/1953 Hysterectomy (51301) 11/03/1989 Breast surgery (68222) 11/03/2000 Removal of gallbladder (80289) 4 Hospitalization History Reason Date(Month/Year) surgeries
--- OUTSIDE RECORDS SUMMARY | 2025-09-14 10:22 | XMS_ITS | Clinical Summary ---
Author Organization [facility] Address [address] [place] [address] Care Team Providers Care Cafeteria Helper Name Role Phone Tanner Edwards MD Primary Care Provider [phone] Social History Tobacco Use Types Packs/Day Years [...] 2025 Insurance MEDICARE PART A AND B [facility] [address] Care Teams Cafeteria Helper Relationship Specialty Start Date End Date Tanner Edwards MD PCP - General Family Practice 08/28/16
== END 2025-09-14 09:29 | disposition home or self-care (01) ==
PROVIDERS: PCP Emergency Medicine; Visit Provider Internal Medicine Cardiovascular Disease
DX: I67.82 Cerebral ischemia (principal)
CPT/HCPCS: 78452; 93017; A9502; J2785